=== PATIENT | female | born 1935 | race Caucasian/White ===

== ENCOUNTER 2016-08-10 18:43 | Inpatient (IN) ==
[2016-08-10 20:55] VITALS: BMI 32.9
[2016-08-10] MEDS ORDERED: NON-FORMULARY MEDICATION (Ferrous Sulfate [Ferrous Sulfate] 325 MG) PO SCH ×22 (22:30)
[2016-08-10] MEDS: FERROUS SULFATE PO SCH (23:27)
[2016-08-10] MEDS: CRESTOR PO SCH (23:27)
[2016-08-10] MEDS: ELIQUIS PO SCH (23:27)
[2016-08-10] MEDS: OMEGA-3 FISH OIL PO SCH (23:27)
[2016-08-10] MEDS: LANTUS SUBCUT SCH (23:28)
[2016-08-10] MEDS: HUMALOG SUBCUT PRN (23:29)
[2016-08-11] MEDS ORDERED: NORCO 5-325 ONE (01:49)
[2016-08-11] MEDS: NORCO 7.5-325 PO PRN ×4 (01:57→22:00)
[2016-08-11] MEDS: HUMALOG SUBCUT PRN ×2 (06:39→12:16)
[2016-08-11] MEDS: ELIQUIS PO SCH ×2 (08:53→22:02)
[2016-08-11] MEDS: DIOVAN PO SCH (08:53)
[2016-08-11] MEDS: CARDIZEM PO SCH ×2 (08:53→22:01)
[2016-08-11] MEDS: HYDROCHLOROTHIAZIDE PO SCH (08:53)
[2016-08-11] MEDS: FERROUS SULFATE PO SCH ×2 (08:54→22:03)
[2016-08-11] MEDS: VITAMIN D PO SCH (08:54)
[2016-08-11] MEDS ORDERED: NON-FORMULARY MEDICATION (Cholecalciferol (Vitamin D3) [Vitamin D3] 1,000 UNIT) PO SCH ×22 (09:00)
[2016-08-11] MEDS ORDERED: NON-FORMULARY MEDICATION (Cyanocobalamin (Vitamin B-12) [Vitamin B12] 5,000 MCG) PO SCH (09:00)
[2016-08-11] MEDS ORDERED: NORCO 7.5-325 MG/15 ML PO STA (09:00)
[2016-08-11] MEDS ORDERED: NORCO 7.5-325 PO STA (11:00)
[2016-08-11] MEDS: HUMALOG MIX 75-25 SUBCUT SCH (11:06)
--- NOTE | 2016-08-11 11:17 | RS.PTINEVL ---
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 Surgical History Comments:: ORIF 08/04/2016 left femur. Subjective Information/ Patient Comments:: Patient states she is doing well but just having difficulty moving around and getting the left leg to work again. Increased pain with movement. She sustained left femur fx when she fell on the steps at her home. She lives with her sister and was very activity prior to this injury. - Level of function Prior to this admission, the patient could do the following:: Independent Selfcare, Independent ADL's, Independent Ambulation, Partially Dependent Ambulation, Perform Rotor Balancer/Cooking, Drive, Participated in Social Activities Outside home, Volunteer/Work Current Level of Function: Dependent Current Equipment Used at Home: None Pain Assessement - Location Left Thigh Description: Throbbing, Aching, Acute Pain Aggravating Factors: ADL's, Changing Position, Exercise/Activity, Standing , Walking, Stair Climbing Pain Alleviating Factors: Medication, Inactivity, Sitting, Lying Supine Interventions - Objective Patient Orientation: Person, Place, Time, Situation Observation: Left lateral incisions with teresa in 3 locations from the mid gluteus medius area spaced throughout the thigh superior and lateral to the knee. Minimal redness of the proximal most superior incision site. Moderate LLE edema. Range of Motion - ROM Right Upper Extremity AROM: WFL's Left Upper Extremity AROM: WFL's Right Lower Extremity AROM: WFL's Left Lower Extremity AROM: Moderate limitation (Pain and weakness cause ROM limitations.) Muscle Strength - Muscle Strength Right Lower Extremity Strength: Normal Left Lower Extremity Strength: Severe Weakness (Hip 3-/5, knee 4-/5 and ankle 3+ /5) Sensation - Sensation Right Upper Extremity Sensation: N/A Left Upper Extremity Sensation: N/A Right Lower Extremity Sensation: N/A Left Lower Extremity Sensation: N/A Balance - Sitting Balance and Reactions Static Sitting Balance: Normal Dynamic Sitting Balance: Good Sitting Equilibrium Reactions: Within Normal Limits Left, Within Normal Limit Right - Standing Balance and Reactions Static Standing Balance: Good Dynamic Standing Balance: Fair Functional Mobility - Bed Mobility Rolling R/L: Not Tested Scooting: Not Tested Supine to Sit: Not Tested Sit to Supine: Not Tested Comments:: Patient reports needing mod-max assist of the LLE for all supine to/ from sit activity. Not tested today due to pain and fatigue with other aspect of evaluation. - Transfers Sit to Stand: Min Assist, 1 person assist Stand to Sit: CGA, 1 person assist, Verbal Cues Stand Pivot Transfers: Min Assist, 1 person assist, Verbal Cues - Safety Awareness Safety Awareness: Fair Ambulation - Ambulation Weight Bearing Status: TDWB/TTWB (30# WB on LLE) Assistive Device Used: Rolling Walker Orthotic/Prosthetic Device: Yes (Left biltup shoe) Distance: 30' Assistance needed with Ambulation: Min Assist, 1 person assist Gait Deviations: Step-to gait, Forward posture, Short stride Factors Affecting Ambulation: WB Status, Pain, Weakness, Decreased Safety, Limited Endurance Treatment time - Units charged Gait trainin (Twice) ADL: 30 - Time with patient Total treatment time: 45 Patient Education - Education Patient Education: Body/Joint mechanics, Activity Modification, Education of Plan of Care Teaching Recipient: Patient Teaching Methods: Discussion Assessment - Assessment Problem List:: Decreased level of function, Requires training/education, Decreased safety/Risk of falls, Weakness, Pain limits previous level of function Rehab Potential: Good Further Therapy Indicated?: Yes Short Term Goals GOAL #1: Patient performs sit to/from stand with SBA. Goal to be met by: 08/20/16 GOAL #2: Supine to/from sit with min LLE assisted needed. Goal to be met by: 08/20/16 GOAL #3: Ambulates 100' with RW and SBA with LLE WB compliance and SBA Goal to be met by: 08/20/16 Service Officer Goals GOAL #1: Independent with bed mobility. Goal to be met by: 08/27/16 GOAL #2: Ambulates 100' with RW, SBA and WB precautions. Goal to be met by: 08/27/16 GOAL #3: Performs steps with CGA to allow pt access in/out of her home. Goal to be met by: 08/27/16 Plan Plan of Care: Therapeutic EX, Neuromuscular Re-Educ, Therapeutic Activity Frequency of Treatment: 1-2 X day, as tolerated Duration of Treatment: 3 Weeks Anticipated Discharge Destination: Home
[2016-08-11] MEDS ORDERED: NORCO 7.5-325 MG/15 ML PO PRN (15:43)
[2016-08-11] MEDS ORDERED: NON-FORMULARY MEDICATION (Omega-3 Fatty Acids/Fish Oil [Fish Oil 1,000 Mg Capsule] 2 EACH) PO SCH ×22 (21:00)
[2016-08-11] MEDS: CRESTOR PO SCH (22:01)
[2016-08-11] MEDS: OMEGA-3 FISH OIL PO SCH (22:02)
[2016-08-11] MEDS: LANTUS SUBCUT SCH (22:05)
[2016-08-12] MEDS: NORCO 7.5-325 PO PRN ×5 (04:13→21:15)
[2016-08-12] MEDS: CARDIZEM PO SCH ×2 (08:31→21:14)
[2016-08-12] MEDS: DIOVAN PO SCH (08:32)
[2016-08-12] MEDS: ELIQUIS PO SCH ×2 (08:32→21:14)
[2016-08-12] MEDS: FERROUS SULFATE PO SCH ×2 (08:32→21:15)
[2016-08-12] MEDS: HUMALOG MIX 75-25 SUBCUT SCH (08:33)
[2016-08-12] MEDS: HYDROCHLOROTHIAZIDE PO SCH (08:36)
[2016-08-12] MEDS: VITAMIN D PO SCH (08:37)
--- NOTE | 2016-08-12 10:24 | RS.OTINEVL ---
Subjective - Patient information Date of Evaluation: 08/12/16 Date of Arrival on Unit: 08/10/16 Admitted From:: [facility] Usual Living Arrangement: sister Living Arrangement Comments: Patient and sister live together. They rent a house and have rails on both sides of the 2 steps to enter the home. 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 Surgical History Comments:: ORIF 08/04/2016 left femur. Subjective Information/ Patient Comments:: Patient's goal is to return to [email or web address] this spring. 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 Pt has difficulty with functional mobility and is anxious intermittently. Interventions - ROM Left Upper Extremity AROM: WFL's - Strength Right Upper Extremity Strength: Mild Weakness Left Upper Extremity Strength: Mild Weakness - Sensation Right Upper Extremity Sensation: Intact/Normal Left Upper Extremity Sensation: Intact/Normal Balance - Sitting Balance Static Sitting Balance: Good Dynamic Sitting Balance: Good - Standing Balance Static Standing Balance: Poor Dynamic Standing Balance: Poor ADL Skills - Self Feeding Self Feeding: Independent - Grooming Grooming: Max Assist - Bathing Bathing UE: Independent Bathing LE: Max Assist - Dressing Dressing UE: Independent Dressing LE: Max Assist - Toilet Management Toileting Management: Max Assist Functional Mobility - Bed Mobility Rolling R/L: Mod Assist Scooting: Mod Assist Supine to Sit: Mod Assist Sit to Supine: Mod Assist - Transfers Sit to Stand: CGA Stand to Sit: Min Assist Stand Pivot Transfers: Min Assist - Ambulation Weight Bearing Status: PWB Assistive Device Used: Rolling Walker Assistance needed with Ambulation: Min Assist Comments:: Pt requires cues to not put more than 30# on her left LE. - Safety Awareness Safety Awareness: Fair Additional Treatment Performed - Additional units charged ADL: 35 - Time with patient Total treatment time: 50 Activities Patient Interests:: Watching Television, Puzzles/Games, Visiting/Socializing Patient Education Patient Education: Home Exercise Program, Home Safety, Education of Plan of Care Teaching Recipient: Patient Teaching Methods: Discussion Assessment Problem List:: Decreased level of function, Requires training/education, Decreased safety/Risk of falls, Weakness, Pain limits previous level of function Rehab Potential: Good Further Therapy Indicated?: Yes Short Term Goals - Goals GOAL 1: Pt to be CGA with stand to sit. Goal to be met by: 08/26/16 GOAL 2: Pt to be minimal assist with LB dressing. Goal to be met by: 08/26/16 GOAL 3: Pt to tolerated standing activity of 15 minutes with rolling walker. Goal to be met by: 08/26/16 Wildlife Policy Professional Goals GOAL 1: Pt to be modified independent with STand to Sit. Goal to be met by: 09/09/16 GOAL 2: Pt to be modified Independent with ADLS. Goal to be met by: 09/09/16 GOAL 3: Pt to tolerate 20-25 minutes of standing activity. Goal to be met by: 09/09/16 Plan Plan of Care: Therapeutic EX, Therapeutic Activity, Self-Care/Home Management Frequency of Treatment: 1-2 X day, as tolerated Duration of Treatment: 4 Weeks Anticipated Discharge Destination: Home
[2016-08-12] MEDS: HUMALOG SUBCUT PRN ×2 (17:00→21:12)
[2016-08-12] MEDS: LANTUS SUBCUT SCH (21:13)
[2016-08-12] MEDS: CRESTOR PO SCH (21:14)
[2016-08-12] MEDS: OMEGA-3 FISH OIL PO SCH (21:15)
[2016-08-13] MEDS: NORCO 7.5-325 PO PRN ×4 (02:08→20:47)
[2016-08-13] MEDS: ELIQUIS PO SCH ×2 (09:19→21:18)
[2016-08-13] MEDS: DIOVAN PO SCH (09:19)
[2016-08-13] MEDS: HYDROCHLOROTHIAZIDE PO SCH (09:20)
[2016-08-13] MEDS: CARDIZEM PO SCH ×2 (09:20→21:18)
[2016-08-13] MEDS: HUMALOG MIX 75-25 SUBCUT SCH (09:20)
[2016-08-13] MEDS: VITAMIN D PO SCH (09:20)
[2016-08-13] MEDS: FERROUS SULFATE PO SCH ×2 (09:20→21:18)
[2016-08-13] MEDS: HUMALOG SUBCUT PRN (12:09)
[2016-08-13] MEDS ORDERED: COLACE PO SCH (21:00)
[2016-08-13] MEDS: OMEGA-3 FISH OIL PO SCH (21:17)
[2016-08-13] MEDS: CRESTOR PO SCH (21:19)
[2016-08-13] MEDS: LANTUS SUBCUT SCH (23:49)
[2016-08-14] MEDS: NORCO 7.5-325 PO PRN ×4 (01:44→20:11)
[2016-08-14] MEDS: HUMALOG SUBCUT PRN ×4 (06:44→20:22)
[2016-08-14] MEDS: ELIQUIS PO SCH ×2 (08:41→20:10)
[2016-08-14] MEDS: CARDIZEM PO SCH ×2 (08:42→20:09)
[2016-08-14] MEDS: HUMALOG MIX 75-25 SUBCUT SCH (08:42)
[2016-08-14] MEDS: FERROUS SULFATE PO SCH ×2 (08:42→20:10)
[2016-08-14] MEDS: VITAMIN D PO SCH (08:42)
[2016-08-14] MEDS: HYDROCHLOROTHIAZIDE PO SCH (08:42)
[2016-08-14] MEDS: DIOVAN PO SCH (08:42)
[2016-08-14 15:17] LABS: BASOPHILS # (AUTO) 0.1 K/uL (0-0.2); BASOPHILS % (AUTO) 0.7 % (0.0-3.0); EOSINOPHILS # (AUTO) 0.4 K/ul (0.0-0.7); EOSINOPHILS % (AUTO) 4.9 % (0.0-7.0); HEMATOCRIT 32.2 % (37.0-47.0); HEMOGLOBIN 10.5 g/dl (12.0-16.0); IMMATURE GRANULOCYTE % (AUTO) 0.6 % (0.0-5.0); LYMPHOCYTES # (AUTO) 1.2 K/uL (0.60-3.4); LYMPHOCYTES % (AUTO) 14.4 (10.0-50.0); MEAN CORPUSCULAR HEMOGLOBIN 29.5 pg (27.0-31.0); MEAN CORPUSCULAR HGB CONC 32.6 (31.8-35.4); MEAN CORPUSCULAR VOLUME 90.4 fl (81.0-99.0); MONOCYTES # (AUTO) 0.9 K/uL (0.4-2.0); MONOCYTES % (AUTO) 10.3 (0-10); NEUTROPHILS # (AUTO) 5.8 K/ul (2.0-6.9); NEUTROPHILS % (AUTO) 69.1; PLATELET COUNT 533 10^3/uL (140-440); RED BLOOD COUNT 3.56 10^6/ul (4.20-5.40); WHITE BLOOD COUNT 8.34 K/ul (4.6-10.2)
[2016-08-14 15:29] LABS: ALBUMIN 2.6 g/dL (3.4-5.0); ALBUMIN/GLOBULIN RATIO 0.72; ANION GAP 14.7; BILIRUBIN,TOTAL 0.57 mg/dL (0.00-1.20); BUN/CREATININE RATIO 23.25; CALCIUM 9.5 mg/dL (8.2-10.2); CREATININE 0.86 mg/dL (0.60-1.30); POTASSIUM 4.7 mmol/L (3.5-5.10); TOTAL PROTEIN 6.2 g/dL (5.8-8.1)
[2016-08-14] MEDS: COLACE PO SCH (20:10)
[2016-08-14] MEDS: OMEGA-3 FISH OIL PO SCH (20:10)
[2016-08-14] MEDS: CRESTOR PO SCH (20:10)
[2016-08-14] MEDS: LANTUS SUBCUT SCH (20:19)
[2016-08-15] MEDS: NORCO 7.5-325 PO PRN ×3 (02:27→18:35)
[2016-08-15] MEDS: HUMALOG SUBCUT PRN ×3 (05:40→20:55)
[2016-08-15] MEDS: ELIQUIS PO SCH ×2 (08:28→22:35)
[2016-08-15] MEDS: CARDIZEM PO SCH ×2 (08:28→22:35)
[2016-08-15] MEDS: HYDROCHLOROTHIAZIDE PO SCH (08:29)
[2016-08-15] MEDS: VITAMIN D PO SCH (08:29)
[2016-08-15] MEDS: FERROUS SULFATE PO SCH ×2 (08:29→22:34)
[2016-08-15] MEDS: HUMALOG MIX 75-25 SUBCUT SCH (08:29)
[2016-08-15] MEDS: DIOVAN PO SCH (08:29)
[2016-08-15] MEDS ORDERED: IMODIUM PO STA (17:41)
[2016-08-15] MEDS: OMEGA-3 FISH OIL PO SCH (22:35)
[2016-08-15] MEDS: CRESTOR PO SCH (22:35)
[2016-08-15] MEDS: COLACE PO SCH (22:35)
[2016-08-15] MEDS: LANTUS SUBCUT SCH (22:36)
[2016-08-16] MEDS: NORCO 7.5-325 PO PRN ×3 (01:25→09:18)
[2016-08-16] MEDS ORDERED: IMODIUM PO STA (04:57)
[2016-08-16] MEDS: DIOVAN PO SCH (09:11)
[2016-08-16] MEDS: FERROUS SULFATE PO SCH ×2 (09:11→21:54)
[2016-08-16] MEDS: ELIQUIS PO SCH ×2 (09:11→21:54)
[2016-08-16] MEDS: HYDROCHLOROTHIAZIDE PO SCH (09:11)
[2016-08-16] MEDS: VITAMIN D PO SCH (09:11)
[2016-08-16] MEDS: HUMALOG MIX 75-25 SUBCUT SCH (09:12)
[2016-08-16] MEDS: CARDIZEM PO SCH ×2 (09:18→21:54)
[2016-08-16] MEDS: HUMALOG SUBCUT PRN ×3 (12:18→21:55)
--- NOTE | 2016-08-16 14:13 | PN ---
DATE OF VISIT: 08/15/16 SUBJECTIVE: The patient is alert and without any complaints. No inspection of the wound was done today. It was clean I expected it the other day. She denies any problems. VITAL SIGNS: Temperature 97.4, pulse 90, blood pressure 114/53, respiratory rate 18 and oxygen saturation 99% at room air. No labs today, labs yesterday showed slightly increased blood sugar at 152. BUN 20, slightly elevated. MTDD
[2016-08-16] MEDS: OMEGA-3 FISH OIL PO SCH (21:54)
[2016-08-16] MEDS: LANTUS SUBCUT SCH (21:54)
[2016-08-16] MEDS: CRESTOR PO SCH (21:54)
[2016-08-17] MEDS: NORCO 7.5-325 PO PRN ×3 (05:08→23:46)
[2016-08-17] MEDS: CARDIZEM PO SCH ×2 (08:40→20:44)
[2016-08-17] MEDS: ELIQUIS PO SCH ×2 (08:40→20:45)
[2016-08-17] MEDS: HYDROCHLOROTHIAZIDE PO SCH (08:40)
[2016-08-17] MEDS: DIOVAN PO SCH (08:40)
[2016-08-17] MEDS: VITAMIN D PO SCH (08:40)
[2016-08-17] MEDS: FERROUS SULFATE PO SCH ×2 (08:40→20:44)
[2016-08-17] MEDS: HUMALOG MIX 75-25 SUBCUT SCH (08:41)
--- NOTE | 2016-08-17 11:24 | PN ---
DATE OF VISIT: 08/16/16 The patient is alert, oriented times four and cheerful. Not dyspneic, nor tachypneic. The patient had open reduction internal fixation of the fracture of the left femur and trochanter. The incision is healing very well and it is now 11 days postop. This patient is getting rehabilitation and she had been walked by the physical therapist. VITAL SIGNS: Temperature 97.4, pulse 90, blood pressure 120/55, respiratory rate 18, oxygen saturation 96 at room air. The accuchecks seemed to be in good control, except in the last two days. She is given a basal bolus type management for her diabetes. DENG
[2016-08-17] MEDS: HUMALOG SUBCUT PRN ×2 (11:58→20:46)
[2016-08-17] MEDS: CRESTOR PO SCH (20:44)
[2016-08-17] MEDS: OMEGA-3 FISH OIL PO SCH (20:45)
[2016-08-17] MEDS: LANTUS SUBCUT SCH (20:45)
[2016-08-18] MEDS: DIOVAN PO SCH (08:12)
[2016-08-18] MEDS: HYDROCHLOROTHIAZIDE PO SCH (08:12)
[2016-08-18] MEDS: ELIQUIS PO SCH ×2 (08:12→20:01)
[2016-08-18] MEDS: VITAMIN D PO SCH (08:13)
[2016-08-18] MEDS: CARDIZEM PO SCH ×2 (08:13→20:01)
[2016-08-18] MEDS: HUMALOG MIX 75-25 SUBCUT SCH (08:13)
[2016-08-18] MEDS: FERROUS SULFATE PO SCH ×2 (08:13→20:02)
[2016-08-18] MEDS: NORCO 7.5-325 PO PRN ×3 (08:15→23:21)
[2016-08-18] MEDS: NYSTOP POWDER TP SCH ×2 (16:03→20:01)
[2016-08-18] MEDS: HUMALOG SUBCUT PRN ×2 (17:33→20:40)
[2016-08-18] MEDS: OMEGA-3 FISH OIL PO SCH (20:02)
[2016-08-18] MEDS: CRESTOR PO SCH (20:02)
[2016-08-18] MEDS: LANTUS SUBCUT SCH (20:04)
[2016-08-19] MEDS: HUMALOG SUBCUT PRN ×2 (05:49→17:20)
[2016-08-19] MEDS: HYDROCHLOROTHIAZIDE PO SCH (08:33)
[2016-08-19] MEDS: FERROUS SULFATE PO SCH ×2 (08:33→20:30)
[2016-08-19] MEDS: DIOVAN PO SCH (08:33)
[2016-08-19] MEDS: NORCO 7.5-325 PO PRN ×3 (08:33→13:23)
[2016-08-19] MEDS: VITAMIN D PO SCH (08:33)
[2016-08-19] MEDS: ELIQUIS PO SCH ×2 (08:33→20:30)
[2016-08-19] MEDS: CARDIZEM PO SCH ×2 (08:33→20:31)
[2016-08-19] MEDS: NYSTOP POWDER TP SCH ×2 (08:34→20:32)
[2016-08-19] MEDS: HUMALOG MIX 75-25 SUBCUT SCH (08:40)
--- NOTE | 2016-08-19 14:56 | PN ---
DATE OF VISIT: 08/18/16 Physical Therapy had been walking the patient and she is still waiting. She claims to be doing well and has no specific complaints. LUNGS: Clear to auscultation in both sides. HEART: Normal sinus rhythm. LOWER EXTREMITIES: No tenderness in the legs. The incision is dry. DENG
[2016-08-19 15:50] LABS: BASOPHILS # (AUTO) 0.1 K/uL (0-0.2); BASOPHILS % (AUTO) 0.5 % (0.0-3.0); EOSINOPHILS # (AUTO) 0.4 K/ul (0.0-0.7); EOSINOPHILS % (AUTO) 4.3 % (0.0-7.0); HEMATOCRIT 31.7 % (37.0-47.0); HEMOGLOBIN 10.1 g/dl (12.0-16.0); IMMATURE GRANULOCYTE % (AUTO) 0.4 % (0.0-5.0); LYMPHOCYTES # (AUTO) 1.3 K/uL (0.60-3.4); LYMPHOCYTES % (AUTO) 13.7 (10.0-50.0); MEAN CORPUSCULAR HEMOGLOBIN 29.1 pg (27.0-31.0); MEAN CORPUSCULAR HGB CONC 31.9 (31.8-35.4); MEAN CORPUSCULAR VOLUME 91.4 fl (81.0-99.0); MONOCYTES # (AUTO) 0.9 K/uL (0.4-2.0); MONOCYTES % (AUTO) 9.4 (0-10); NEUTROPHILS # (AUTO) 6.5 K/ul (2.0-6.9); NEUTROPHILS % (AUTO) 71.7; PLATELET COUNT 538 10^3/uL (140-440); RED BLOOD COUNT 3.47 10^6/ul (4.20-5.40); WHITE BLOOD COUNT 9.11 K/ul (4.6-10.2)
[2016-08-19 16:11] LABS: ALBUMIN 2.6 g/dL (3.4-5.0); ALBUMIN/GLOBULIN RATIO 0.81; ANION GAP 9.6; BILIRUBIN,TOTAL 0.48 mg/dL (0.00-1.20); BUN/CREATININE RATIO 17.64; CALCIUM 9.2 mg/dL (8.2-10.2); CREATININE 0.85 mg/dL (0.60-1.30); POTASSIUM 4.6 mmol/L (3.5-5.10); TOTAL PROTEIN 5.8 g/dL (5.8-8.1)
[2016-08-19] MEDS: OMEGA-3 FISH OIL PO SCH (20:30)
[2016-08-19] MEDS: LANTUS SUBCUT SCH (20:31)
[2016-08-19] MEDS: CRESTOR PO SCH (20:31)
[2016-08-20] MEDS: NORCO 7.5-325 PO PRN (01:19)
[2016-08-20] MEDS: HUMALOG SUBCUT PRN ×2 (05:36→23:04)
[2016-08-20] MEDS: HYDROCHLOROTHIAZIDE PO SCH (08:28)
[2016-08-20] MEDS: DIOVAN PO SCH (08:28)
[2016-08-20] MEDS: ELIQUIS PO SCH ×2 (08:28→20:00)
[2016-08-20] MEDS: FERROUS SULFATE PO SCH ×2 (08:29→20:01)
[2016-08-20] MEDS: CARDIZEM PO SCH ×2 (08:29→20:00)
[2016-08-20] MEDS: VITAMIN D PO SCH (08:29)
[2016-08-20] MEDS: NYSTOP POWDER TP SCH (08:30)
--- NOTE | 2016-08-20 14:24 | PN ---
DATE OF SERVICE: 08/19/16 SUBJECTIVE: The patient is a 80 year old female who had a fracture of the left hip and femur and treated with open reduction and internal fixation. She had been receiving physical therapy and rehab and had been doing well. She mentioned about her sugar being low after exercise. Her Accu-checks were high but maybe a reduction on the coverage may help the problem. Her problem is low blood sugar. She had not had a fasting sugar lately and we will try to get that tomorrow. The insulin Lispro 16 units SUBCUT daily is discontinued. I do believe that this probably would correct the problem. LUNGS: Clear to auscultation HEART: Audible and irregular The patient is atrial fibrillation. The incision now has some redness, reaction from the teresa. The teresa were removed. This patient is now two weeks post surgery. VITAL SIGNS: Temperature 97.9, pulse 95, blood pressure 119/61, respiratory 18 and oxygen saturation 97% at room air. [facility]
[2016-08-20] MEDS: CRESTOR PO SCH (20:00)
[2016-08-20] MEDS: OMEGA-3 FISH OIL PO SCH (20:00)
[2016-08-20] MEDS: LANTUS SUBCUT SCH (23:01)
[2016-08-21] MEDS: NORCO 7.5-325 PO PRN ×2 (00:56→18:59)
[2016-08-21] MEDS: NYSTOP POWDER TP SCH ×3 (00:57→21:54)
[2016-08-21] MEDS: HUMALOG SUBCUT PRN ×4 (06:49→21:51)
[2016-08-21] MEDS: ELIQUIS PO SCH ×2 (09:22→21:33)
[2016-08-21] MEDS: FERROUS SULFATE PO SCH ×2 (09:22→21:56)
[2016-08-21] MEDS: CARDIZEM PO SCH ×2 (09:22→21:33)
[2016-08-21] MEDS: HYDROCHLOROTHIAZIDE PO SCH (09:23)
[2016-08-21] MEDS: VITAMIN D PO SCH (09:23)
[2016-08-21] MEDS: DIOVAN PO SCH (09:23)
[2016-08-21] MEDS: CRESTOR PO SCH (21:33)
[2016-08-21] MEDS: LANTUS SUBCUT SCH (21:34)
[2016-08-21] MEDS: OMEGA-3 FISH OIL PO SCH (21:34)
[2016-08-22] MEDS: NORCO 7.5-325 PO PRN (00:57)
[2016-08-22] MEDS: HUMALOG SUBCUT PRN ×3 (06:23→17:14)
[2016-08-22 08:06] LABS: ALBUMIN 2.5 g/dL (3.4-5.0); ANION GAP 12.3; BUN/CREATININE RATIO 21.17; CALCIUM 9.1 mg/dL (8.2-10.2); CREATININE 0.85 mg/dL (0.60-1.30); PHOSPHORUS 3.8 mg/dL (2.8-4.1); POTASSIUM 4.3 mmol/L (3.5-5.10)
[2016-08-22] MEDS: FERROUS SULFATE PO SCH ×2 (08:55→20:49)
[2016-08-22] MEDS: HYDROCHLOROTHIAZIDE PO SCH (08:56)
[2016-08-22] MEDS: DIOVAN PO SCH (08:56)
[2016-08-22] MEDS: VITAMIN D PO SCH (08:57)
[2016-08-22] MEDS: CARDIZEM PO SCH ×2 (08:57→20:49)
[2016-08-22] MEDS: ELIQUIS PO SCH ×2 (08:57→20:49)
[2016-08-22] MEDS: NYSTOP POWDER TP SCH ×2 (09:00→20:50)
[2016-08-22] MEDS: CRESTOR PO SCH (20:49)
[2016-08-22] MEDS: OMEGA-3 FISH OIL PO SCH (20:49)
[2016-08-22] MEDS: LANTUS SUBCUT SCH (21:06)
[2016-08-23] MEDS: HUMALOG SUBCUT PRN ×3 (05:45→17:50)
[2016-08-23] MEDS: CARDIZEM PO SCH ×2 (09:31→21:32)
[2016-08-23] MEDS: ELIQUIS PO SCH ×2 (09:32→21:32)
[2016-08-23] MEDS: DIOVAN PO SCH (09:32)
[2016-08-23] MEDS: HYDROCHLOROTHIAZIDE PO SCH (09:33)
[2016-08-23] MEDS: FERROUS SULFATE PO SCH ×2 (09:33→21:32)
[2016-08-23] MEDS: VITAMIN D PO SCH (09:34)
[2016-08-23] MEDS: NORCO 7.5-325 PO PRN ×3 (09:36→23:31)
[2016-08-23] MEDS: NYSTOP POWDER TP SCH ×2 (10:33→23:23)
[2016-08-23] MEDS: LANTUS SUBCUT SCH (21:31)
[2016-08-23] MEDS: OMEGA-3 FISH OIL PO SCH (21:32)
[2016-08-23] MEDS: CRESTOR PO SCH (21:32)
[2016-08-24] MEDS: HUMALOG SUBCUT PRN ×4 (05:37→20:11)
[2016-08-24] MEDS: DIOVAN PO SCH (09:05)
[2016-08-24] MEDS: ELIQUIS PO SCH ×2 (09:05→20:28)
[2016-08-24] MEDS: CARDIZEM PO SCH ×2 (09:05→20:28)
[2016-08-24] MEDS: FERROUS SULFATE PO SCH ×2 (09:05→20:29)
[2016-08-24] MEDS: HYDROCHLOROTHIAZIDE PO SCH (09:06)
[2016-08-24] MEDS: NYSTOP POWDER TP SCH ×2 (09:06→23:03)
[2016-08-24] MEDS: VITAMIN D PO SCH (09:06)
[2016-08-24] MEDS: NORCO 7.5-325 PO PRN ×2 (09:19→23:10)
[2016-08-24] MEDS ORDERED: BACTROBAN TP ONE (16:22)
[2016-08-24] MEDS ORDERED: BACTROBAN TP STA (17:50)
[2016-08-24] MEDS: CRESTOR PO SCH (20:25)
[2016-08-24] MEDS: OMEGA-3 FISH OIL PO SCH (20:27)
[2016-08-24] MEDS: LANTUS SUBCUT SCH (20:29)
[2016-08-25] MEDS: HUMALOG SUBCUT PRN ×4 (05:41→20:52)
--- NOTE | 2016-08-25 07:52 | DI ---
EXAM: Four views of the right toes. History: Right second toe infection. Findings: Osteopenia. Hallux valgus deformity. There is a subacute appearing mildly displaced fra cture of the proximal phalanx of the first digit with callus formation and some irregularity of the fracture fragment margins. Moderate polyarticular joint space narrowing. No definite soft tissue g as is seen. Impression: Subacute appearing fracture of the proximal phalanx of the first digit. Underlying ost eomyelitis is not excluded.
[2016-08-25] MEDS: DIOVAN PO SCH (08:02)
[2016-08-25] MEDS: CARDIZEM PO SCH ×2 (08:02→20:56)
[2016-08-25] MEDS: ELIQUIS PO SCH ×2 (08:03→20:55)
[2016-08-25] MEDS: FERROUS SULFATE PO SCH ×2 (08:03→20:55)
[2016-08-25] MEDS: NYSTOP POWDER TP SCH ×2 (08:04→20:54)
[2016-08-25] MEDS: VITAMIN D PO SCH (08:04)
[2016-08-25] MEDS: HYDROCHLOROTHIAZIDE PO SCH (08:04)
[2016-08-25] MEDS: NORCO 7.5-325 PO PRN ×3 (08:05→21:25)
[2016-08-25] MEDS: LANTUS SUBCUT SCH (20:51)
[2016-08-25] MEDS: CRESTOR PO SCH (20:55)
[2016-08-25] MEDS: OMEGA-3 FISH OIL PO SCH (20:56)
[2016-08-26] MEDS: HUMALOG SUBCUT PRN ×4 (05:56→21:52)
[2016-08-26] MEDS: FERROUS SULFATE PO SCH ×2 (08:01→21:54)
[2016-08-26] MEDS: CARDIZEM PO SCH ×2 (08:02→21:55)
[2016-08-26] MEDS: DIOVAN PO SCH (08:02)
[2016-08-26] MEDS: VITAMIN D PO SCH (08:02)
[2016-08-26] MEDS: ELIQUIS PO SCH ×2 (08:02→21:54)
[2016-08-26] MEDS: HYDROCHLOROTHIAZIDE PO SCH (08:02)
[2016-08-26] MEDS: NYSTOP POWDER TP SCH ×2 (08:03→21:55)
--- NOTE | 2016-08-26 11:18 | CONS ---
DATE OF CONSULTATION: 08/25/16 REASON FOR CONSULTATION: Atrial fibrillation, further management with Yen blood thinners. HISTORY OF PRESENT ILLNESS: 80-year-old white female seen in July. She was then noted to have atrial fibrillation. She has been on Eliquis ever since then with practically no complication. The patient underwent left hip trochanteric nailing and intramedullary hip screw by Dr. Tam and according to the patient, Dr. Tam wants her to get off Eliquis. As far as I can see, the patient is still in atrial fib. Echo done this morning by me showed LA cavity enlargement of 4.8 cm with normal LV contractility and borderline LVH. REVIEW OF SYSTEMS: CONSTITUTIONAL: No night sweats. No fatigue, malaise, lethargy. No fever or chills. HEENT: Eyes: No visual changes. No eye pain. No eye discharge. ENT: No runny nose. No epistaxis. No sinus pain. No sore throat. No odynophagia. No ear pain. No congestion. RESPIRATORY: No cough, no congestion. No hemoptysis. CARDIOVASCULAR: No angina symptoms. No CHF symptoms. No atypical chest pain for CAD. No palpitations. No shortness of breath. GASTROINTESTINAL: No abdominal pain. No nausea or vomiting. No diarrhea or constipation. No hematemesis. No hematochezia. GENITOURINARY: No urgency. No frequency. No dysuria. No hematuria. No obstructive symptoms. No discharge. No pain. No significant abnormal bleeding. MUSCULOSKELETAL: No musculoskeletal pain. No joint swelling. NEUROLOGICAL: No headache. No neck pain. No syncope. No seizures. No dizziness. PSYCHIATRIC: Not anxious. No depression. No suicidal thoughts. No homicidal thoughts. SKIN: No rash. No lesions. ENDOCRINE: No unexplained weight loss. No weight gain. HEMATOLOGIC/LYMPHATIC: No anemia. No purpura. No petechiae. No prolonged or excessive bleeding. No palpable lymph nodes. MEDICATIONS: 1. Cholecalciferol 2. Insulin 3. [place] 4. Rosuvastatin 5. Ferrous Sulfate 6. Cyanocobalamin 7. Eliquis 8. Diltiazem 9. Valsartan-HCTZ ALLERGIES: AZITHROMYCIN, BACTRIM PAST MEDICAL/SURGICAL HISTORY: 1. Left hip fracture repair a couple of weeks ago 2. Diabetes mellitus 3. Dyslipidemia 4. Hypertension 5. Atrial fibrillation PHYSICAL EXAMINATION: GENERAL: The patient is oriented to time, place and person. VITAL SIGNS: Temperature 97.5, pulse 95/min, respiratory rate 20, BP 123/60, pulse ox 98%. HEENT: Head normocephalic, atraumatic. Face is symmetrical. Eyes: Extraocular muscles are intact. Pupils are equal, round and reactive to light and accommodation. Ears: No lesions. Nose appeared normal. Throat: No exudate or erythema. NECK: Supple. No JVP, no carotid bruit. No lymphadenopathy or thyromegaly. LUNGS: Decreased breath sounds but clear to auscultation. Percussion note normal. Chest symmetrical. HEART: S1, S2, no S3. No murmurs. No cyanosis or clubbing. No ascites. Pulses: Dorsalis pedis and posterior tibial pulses +1 to +2 both sides. ABDOMEN: Soft. Nontender. Bowel sounds active. No CVA tenderness. No mass felt. EXTREMITIES: Trace edema on the left side mildly tender left hip. It has healed up pretty well. Calf muscles nontender. NEUROLOGIC: No focal deficit. Cranial nerves II through XII are grossly intact. No headache, no double vision or headache. SKIN: Not dry. Intact. Turgor - normal. LYMPHATIC: No palpable lymph nodes/no lymphedema. MUSCULOSKELETAL: Normal joints with no swelling. Muscle tone is normal. LABS: Hemoglobin 10, hematocrit 31, WBC 9,100, normal differential. Creatinine 0.8, BUN 18, potassium 4.3, glucose 252. GFR 65 cc/min. EKG - atrial fibrillation, LVH. ASSESSMENT: 1. Atrial fibrillation, chronic. 2. Diabetes mellitus. 3. Hypertension. 4. Dyslipidemia. 5. Left hip fracture/repair. RECOMMENDATION: 1. Advised to continue ELiquis 5 mg twice a day. 2. Continue the rest of the medication. The patient's medical conditions are stable. I discussed the case with attending. Thanks for referral. DENG
--- NOTE | 2016-08-26 13:33 | PN ---
DATE OF VISIT: 08/21/16 The patient is alert and oriented times four. Not dyspneic, nor tachypneic. She had been done walking already. Her incision is healing well with no signs of any infection. VITAL SIGNS: Temperature 98, pulse 99, blood pressure 150/65, respiratory rate 18, oxygen saturation 99 on room air. LUNGS: Clear to auscultation in both sides. HEART: Normal sinus rhythm. ASSESSMENT: Satisfactory postoperative course of left hip fracture treated with ORIF. DENG
--- NOTE | 2016-08-26 13:37 | PN ---
DATE OF VISIT: 08/23/16 The patient is alert and oriented times four. Not dyspneic, nor tachypneic. She had been walked by Physical Therapy. She claimed to be doing well, except she did show me the right foot and indeed she had a necrotic tissue on the second toe. I told her that we would do a debridement tomorrow. The area on the left lateral thigh, site of the surgery, is healing well and no signs of any infection. The teresa have been removed already. LUNGS: Remained clear to auscultation in both sides. HEART: Audible and regular with good tones. MTDD
--- NOTE | 2016-08-26 13:42 | PN ---
DATE OF VISIT: 08/24/16 The patient is alert and doing well. She had a small amount of drainage in the incision of the left lateral thigh. A culture and sensitivity will be obtained. There is no wound dehiscence. The area on the right foot, second toe , is debrided with prior culture. The foot is soaked first with half water and half hydrogen peroxide prior to the debridement. Debridement was carried using an Iris scissor plus a scalpel. The foot is then dressed with Bactroban. VITAL SIGNS: Temperature 97.8, pulse 88, blood pressure 113/63, respiratory rate 18, oxygen saturation 99 at room air. MTDD
--- NOTE | 2016-08-26 13:48 | PN ---
DATE OF VISIT: 08/24/16 The patient does have a callous formation and after removing all of the callous , the patient has an ulceration with rounded opening on the distal end of the phalanx. The second toe is red and probably the patient may have an osteomyelitis. Culture and sensitivity was obtained from the ulceration. The nail will be transected tomorrow, but it will be after she has been to the orthopedic surgeon. Her appointment is 8 a.m. X-ray of the second toe is ordered to see if there is any signs of osteomyelitis and it may need a bone scan three phase. I emphasized to her that she should show that to the orthopedic surgeon. DENG
[2016-08-26] MEDS: NORCO 7.5-325 PO PRN (15:01)
[2016-08-26] MEDS: LANTUS SUBCUT SCH (21:53)
[2016-08-26] MEDS: CRESTOR PO SCH (21:54)
[2016-08-26] MEDS: OMEGA-3 FISH OIL PO SCH (21:54)
[2016-08-27] MEDS: NORCO 7.5-325 PO PRN (03:18)
[2016-08-27] MEDS: HUMALOG SUBCUT PRN ×3 (05:55→21:52)
[2016-08-27] MEDS: NYSTOP POWDER TP SCH ×2 (09:33→22:18)
[2016-08-27] MEDS: ELIQUIS PO SCH ×2 (09:33→21:50)
[2016-08-27] MEDS: VITAMIN D PO SCH (09:33)
[2016-08-27] MEDS: FERROUS SULFATE PO SCH ×2 (09:33→21:50)
[2016-08-27] MEDS: DIOVAN PO SCH (09:34)
[2016-08-27] MEDS: HYDROCHLOROTHIAZIDE PO SCH (09:34)
[2016-08-27] MEDS: CARDIZEM PO SCH ×2 (09:34→21:50)
--- NOTE | 2016-08-27 10:14 | CONS ---
DATE OF SERVICE: 08/26/16 CONSULT FOLLOWUP SUBJECTIVE: 80-year-old white female hospitalized with left hip trochanteric nailing and intramedullary hip screw, now in the swing bed since 08/10/16. The question was whether to put the patient on Eliquis or not. The patient is in atrial fibrillation. All the documentation showed the patient has been in atrial fibrillation since July 2016. She has been monitored for the last 36 hours. She has been in continuous atrial fibrillation today. EKG shows atrial fibrillation. The rhythm strips also showed atrial fibrillation with controlled ventricular response. REVIEW OF SYSTEMS: CONSTITUTIONAL: No night sweats. No fatigue, malaise, lethargy. No fever or chills. HEENT: Eyes: No visual changes. No eye pain. No eye discharge. ENT: No runny nose. No epistaxis. No sinus pain. No sore throat. No odynophagia. No ear pain. No congestion. RESPIRATORY: No cough, no congestion. No hemoptysis. CARDIOVASCULAR: No angina symptoms. No CHF symptoms. No atypical chest pain for CAD. No palpitations. No shortness of breath. GASTROINTESTINAL: No abdominal pain. No nausea or vomiting. No diarrhea or constipation. No hematemesis. No hematochezia. GENITOURINARY: No urgency. No frequency. No dysuria. No hematuria. No obstructive symptoms. No discharge. No pain. No significant abnormal bleeding. MUSCULOSKELETAL: No musculoskeletal pain. No joint swelling. NEUROLOGICAL: No headache. No neck pain. No syncope. No seizures. No dizziness. PSYCHIATRIC: Not anxious. No depression. No suicidal thoughts. No homicidal thoughts. SKIN: No rash. No lesions. ENDOCRINE: No unexplained weight loss. No weight gain. HEMATOLOGIC/LYMPHATIC: No anemia. No purpura. No petechiae. No prolonged or excessive bleeding. No palpable lymph nodes. PHYSICAL EXAMINATION: GENERAL: The patient is oriented to time, place and person. VITAL SIGNS: Temperature 98, pulse 79, respiratory rate 16, BP 115/62, pulse ox 100%. HEENT: Head normocephalic, atraumatic. Eyes: Extraocular muscles are intact. Pupils are equal, round and reactive to light and accommodation. Ears: No lesions. Nose appeared normal. Throat: No exudate or erythema. NECK: Supple. No JVD, no carotid bruit. No lymphadenopathy or thyromegaly. LUNGS: Decreased breath sounds but clear to auscultation. Percussion note normal. Chest symmetrical. HEART: S1, S2, no S3. No murmurs. No cyanosis or clubbing. No ascites. Pulses: Dorsalis pedis and posterior tibial pulses +1 to +2 both sides. ABDOMEN: Soft. Nontender. Bowel sounds active. No CVA tenderness. No mass felt. EXTREMITIES: No edema. Mildly tender left hip, healing well. NEUROLOGIC: No focal deficit. Cranial nerves II through XII are grossly intact. No headache, no double vision or headache. SKIN: Not dry. Intact. Turgor - normal. LYMPHATIC: No palpable lymph nodes/no lymphedema. MUSCULOSKELETAL: Normal joints with no swelling. Muscle tone is normal. LABS: Hemoglobin 10.1, hematocrit 31.7, WBC 9,100, normal differential. Creatinine 0.8 , BUN 18, potassium 4.3, glucose 252. ASSESSMENT: 1. ATRIAL FIBRILLATION WITH CONTROLLED VENTRICULAR RESPONSE. 2. DIABETES MELLITUS. 3. HYPERTENSION. 4. DYSLIPIDEMIA. 5. LEFT FEMORAL FRACTURE/REPAIR PLAN: 1. Continue Eliquis. The side effects of Eliquis discussed with the patient including intracranial hemorrhage, GI bleed. The patient so far had no evidence of any side effects from Eliquis. She has been on it for several months. At the present time, the patient is status post left femoral fracture with no complications. CONDITION: Stable. MTDD
--- NOTE | 2016-08-27 11:28 | ECHO2D ---
Date of Exam: 08/25/16 Ordering Physician: CASSIDY WEINER Reason for Echo: A-FIB, DM, HTN, Auscultation: S1, S2 M-Mode Normal Adult Results LV Dimensions Normal Adult Results AoV Opening excursions >1.6 >1.6 LVEDD-base- 3.5-5.8 4.5 Ao root dimensions 2.0-3.7 3.8 LVESD-base- 3.1-4.6 L. Atrium dimensions 1.9-3.8 4.6 Post. Wall thickness 0.8-1.1 1.1 IV septum (thickness) 0.7-1.2 1.2 Post. Wall excursion 0.72-1.3 NORMAL Septal motion 0.5 Systolic motion R. Ventricular cavity 1.5-2.0 NORMAL LVEF 60% 53% Paradoxical septal wall motion NORMAL 2-D : STIFF HYPOKINETIC SEPTUM--NO EFFUSION, NO THROMBUS, ENLARGED LEFT ATRIAL CAVITY, NORMAL LEFT VENTRICLE SIZE. M-MODE: MV: CALCIFIC ANNULUS AV: NORMAL TV: NORMAL PV: CHAMBER SIZE: ENLARGED LEFT ATRIAL CAVITY WALL MOTION: HYPOKINETIC SEPTUM PERICARDIUM: NORMAL INTERPRETATION: 1. LEFT VENTRICULAR HYPERTROPHY WITH ENLARGED LEFT ATRIAL CAVITY 2. HYPOKINETIC SEPTUM (STIFF) 3. LEFT VENTRICULAR EJECTION FRACTION 53% 4. NORMAL VALVES MTDD
--- NOTE | 2016-08-27 11:36 | PN ---
DATE OF VISIT: 08/26/16 The right second toe nail was transected using a bone rongeur, as well as a bone cutter. All the rounded ulceration at the distal end of the distal phalangeal soft tissue is still draining some cloudy material, minimal. The toe is bigger than the rest of the toes. X-ray showed some abnormality and possible osteomyelitis. A bone scan limited to the second toe is ordered for tomorrow. The patient is alert and doing well. Not dyspneic, nor tachypneic. No wound dehiscence in the left lateral thigh incision. MTDD
--- NOTE | 2016-08-27 14:49 | NM ---
EXAM: Bone scan, three-phase . HISTORY: Ulcer on the right second toe. Abnormal x-ray. COMPARISON: None of this type. Radiograph 08/24/2016. PROCEDURE: The patient was injected with 26.9 mCi of 99m technetium HDP intravenously. A flow study was performed followed by immediate blood pool phase images. After an appropriate interval, delayed bone phase images were obtained. FINDINGS:Anterior perfusion phase images demonstrate increased activity in the distal forefeet in th e region of the toes bilaterally somewhat more prominent on the right. Immediate blood pool phase i mages demonstrate modest more uniform activity throughout the feet with some increase seen in the an kles and also at the base of the right great toe in the region of the metatarsal phalangeal joint. T here is also modest increased activity in the distal midfoot at the level of the articulation of the metatarsals and the tarsals. Delayed bone phase images demonstrate more intense focal activity in t he right great toe at the level of the metatarsal phalangeal joint. There is modest activity in the tip of the second toe. There is increased activity in the calcanei and/or ankles bilaterally and i n the right midfoot at about the level of the articulation of the third metatarsal with the tarsal b one. On the left there is more modest increased activity at the base of the great toe and additiona lly at the level of the interphalangeal joints of the second and third toes and at the metatarsal ta rsal articulation of the fourth or fifth toe. These latter findings are all likely associated with degenerative joint disease. Additional images of the hips, femurs and knees demonstrate asymmetrica lly greater activity on the left with fractures seen involving the proximal left femur including the intertrochanteric plane and the distal left femur. IMPRESSION: 1.The three-phase examination demonstrates positive findings in the region of the first metatarsopha langeal joints, more intense on the right due to the radiographically demonstrated subacute appearin g fracture of the proximal phalanx of the first digit. The perfusion phase images do not localize a ctivity specifically to these areas. 2.The examination demonstrates focal increased activity at the tip of the right second toe. The loc ation of the ulcer on the second toe is not known. If there is an appropriate anatomic relationship , this could represent an infectious process. 3.The immediate blood pool phase and delayed bone phase images demonstrate increased activity in sev eral of the joints of the feet bilaterally listed in the report. This activity is probably due to d egenerative changes in the joints. 4.The delayed images also show increased uptake of tracer in joints of the ankles bilaterally, also associated with degenerative change and/or repetitive stress.
[2016-08-27] MEDS: ROCEPHIN 2 GM in SODIUM CHLORIDE 100 ML IV SCH (15:15)
[2016-08-27] MEDS: CRESTOR PO SCH (21:50)
[2016-08-27] MEDS: OMEGA-3 FISH OIL PO SCH (21:50)
[2016-08-27] MEDS: LANTUS SUBCUT SCH (21:56)
[2016-08-28] MEDS: FERROUS SULFATE PO SCH ×2 (08:29→20:04)
[2016-08-28] MEDS: ELIQUIS PO SCH ×2 (08:29→20:04)
[2016-08-28] MEDS: DIOVAN PO SCH (08:29)
[2016-08-28] MEDS: VITAMIN D PO SCH (08:29)
[2016-08-28] MEDS: CARDIZEM PO SCH ×2 (08:29→20:04)
[2016-08-28] MEDS: HYDROCHLOROTHIAZIDE PO SCH (08:30)
[2016-08-28] MEDS: NYSTOP POWDER TP SCH ×2 (08:30→20:11)
[2016-08-28] MEDS: ROCEPHIN 2 GM in SODIUM CHLORIDE 100 ML IV SCH (08:31)
[2016-08-28] MEDS: BACTROBAN TP SCH ×2 (10:22→20:07)
[2016-08-28] MEDS: HUMALOG SUBCUT PRN ×2 (11:26→16:46)
[2016-08-28] MEDS: CRESTOR PO SCH (20:05)
[2016-08-28] MEDS: OMEGA-3 FISH OIL PO SCH (20:05)
[2016-08-28] MEDS: LANTUS SUBCUT SCH (20:28)
[2016-08-29] MEDS: HUMALOG SUBCUT PRN ×4 (05:32→20:52)
[2016-08-29] MEDS: ELIQUIS PO SCH ×2 (08:31→20:10)
[2016-08-29] MEDS: CARDIZEM PO SCH ×2 (08:31→20:12)
[2016-08-29] MEDS: VITAMIN D PO SCH (08:31)
[2016-08-29] MEDS: DIOVAN PO SCH (08:31)
[2016-08-29] MEDS: BACTROBAN TP SCH ×2 (08:31→20:14)
[2016-08-29] MEDS: HYDROCHLOROTHIAZIDE PO SCH (08:32)
[2016-08-29] MEDS: ROCEPHIN 2 GM in SODIUM CHLORIDE 100 ML IV SCH (08:32)
[2016-08-29] MEDS: FERROUS SULFATE PO SCH ×2 (08:32→20:12)
[2016-08-29] MEDS: NYSTOP POWDER TP SCH ×2 (08:33→20:15)
[2016-08-29 13:01] LABS: BASOPHILS # (AUTO) 0.1 K/uL (0-0.2); BASOPHILS % (AUTO) 0.8 % (0.0-3.0); EOSINOPHILS # (AUTO) 0.3 K/ul (0.0-0.7); EOSINOPHILS % (AUTO) 3.7 % (0.0-7.0); HEMATOCRIT 32.9 % (37.0-47.0); HEMOGLOBIN 10.7 g/dl (12.0-16.0); IMMATURE GRANULOCYTE % (AUTO) 0.4 % (0.0-5.0); LYMPHOCYTES % (AUTO) 13.6 (10.0-50.0); MEAN CORPUSCULAR HEMOGLOBIN 29.2 pg (27.0-31.0); MEAN CORPUSCULAR HGB CONC 32.5 (31.8-35.4); MEAN CORPUSCULAR VOLUME 89.9 fl (81.0-99.0); MONOCYTES # (AUTO) 0.9 K/uL (0.4-2.0); MONOCYTES % (AUTO) 11.9 (0-10); NEUTROPHILS # (AUTO) 5.2 K/ul (2.0-6.9); NEUTROPHILS % (AUTO) 69.6; PLATELET COUNT 499 10^3/uL (140-440); RED BLOOD COUNT 3.66 10^6/ul (4.20-5.40); WHITE BLOOD COUNT 7.49 K/ul (4.6-10.2)
[2016-08-29 13:22] LABS: ALBUMIN 2.4 g/dL (3.4-5.0); ALBUMIN/GLOBULIN RATIO 0.67; ANION GAP 13.5; BILIRUBIN,TOTAL 0.27 mg/dL (0.00-1.20); BUN/CREATININE RATIO 19.27; CALCIUM 9.3 mg/dL (8.2-10.2); CREATININE 0.83 mg/dL (0.60-1.30); POTASSIUM 4.5 mmol/L (3.5-5.10)
[2016-08-29] MEDS: OMEGA-3 FISH OIL PO SCH (20:10)
[2016-08-29] MEDS: CRESTOR PO SCH (20:11)
[2016-08-29] MEDS: LANTUS SUBCUT SCH (20:29)
[2016-08-30 05:28] VITALS: BP 116/54; TEMP 97.9
[2016-08-30] MEDS: HUMALOG SUBCUT PRN ×2 (06:18→11:12)
--- NOTE | 2016-08-30 07:10 | PN ---
DATE OF VISIT: 08/27/16 SUBJECTIVE: The patient is alert, oriented times four, not dyspneic or tachypneic. He wanted to know when he can go home, Tuesday or Tuesday? I told her Tuesday morning. She will be going to her granddaughter's house instead of her sister. The culture done on the 2nd toe, right foot, showed Morganella Morganii. It is sensitive to Ceftriaxone and the patient is given Ceftriaxone now and when discharged, she will be continued on Cipro. OBJECTIVE: The right second toe swelling is much less, drainage is less and the ulceration is getting smaller. Bone scan three-phase today was done and there is some activity in the second toe, distal end. There is activity on the first toe, which is due to fracture. Other activities are due to degenerative disease of the bone. Left lateral thigh incision has some redness and induration. There is no purulent drainage. The initial drainage cultured showed no growth. There is still some drainage. There is about 1 cm that is slightly gaping. The area is dressed aseptically. Lungs are clear to auscultation. Heart is audible and slightly irregular. EKG still shows what appeared to be atrial fibrillation. I had consulted Dr. Phan, who initiated the anticoagulant medication for the atrial fibrillation and he felt that we could not stop the Eliquis 5 mg twice a day since the arrhythmia is still present. Dr. Memo Tam had implied that the Eliquis may have something to do with the delayed healing. PLAN: Will obtain chemistries tomorrow to see where the blood sugar is. The blood sugar was higher. Probably should increase the Lantus in the evening. MTDD
[2016-08-30] MEDS: BACTROBAN TP SCH (07:59)
[2016-08-30] MEDS: FERROUS SULFATE PO SCH (08:00)
[2016-08-30] MEDS: VITAMIN D PO SCH (08:00)
[2016-08-30] MEDS: ELIQUIS PO SCH (08:00)
[2016-08-30] MEDS: DIOVAN PO SCH (08:00)
[2016-08-30] MEDS: HYDROCHLOROTHIAZIDE PO SCH (08:00)
[2016-08-30] MEDS: CARDIZEM PO SCH (08:00)
[2016-08-30] MEDS: NYSTOP POWDER TP SCH (08:01)
[2016-08-30] MEDS: ROCEPHIN 2 GM in SODIUM CHLORIDE 100 ML IV SCH (08:42)
--- NOTE | 2016-08-30 08:49 | PN ---
DATE OF VISIT: 08/29/16 SUBJECTIVE: The patient is alert, responsive and oriented. The second big toe still has a small ulcer at the end. The swelling of the second big toe has regressed remarkably. It is being treated with Bactroban. The incision in the left lateral thigh is still draining serous drainage. I had instructed a culture and sensitivity on the drainage today. LUNGS: Clear to auscultation HEART: Normal sinus rhythm LABS: Sodium and potassium were slightly lower, 132 and 94 respectively. Her blood sugar was 221, EGFR 66, CBC showed moderate anemia, Plt count rising now 499, 000. Her appetite is good. VITAL SIGNS: Temperature 97.4, pulse 96, blood pressure 133/58, respiratory 20 and oxygen saturation 100 at room air. MTDD
--- NOTE | 2016-08-31 10:55 | DS ---
DATE OF ADMISSION: 08/10/16 DATE OF DISCHARGE: 08/30/16 PATIENT IDENTIFICATION: The patient is a 80 year old female who had fall 08/05/16 was operated with open reduction internal fixation of the left hip on 08/06/16. The patient had satisfactory course while at the hospital in [place] and was then discharged to transitional care at [place] on 08/10/16. HOSPITAL COURSE: The patient on admission was alert, oriented times 4 with movement of all extremities. She did have some pain in the hip area but not significant. Temperature 98.2, pulse 61, blood pressure 146/77 left and 134/69 right, respiratory 18 and oxygen saturation 97% room air. Medication were continued at discharge from [facility] and physical therapy as ordered by the operating orthopedic surgeon. On 08/24/16 the patient did complain of some callus formation on the second toe which we thought was OK. The callus was removed. An ulceration at the distal end of the distal phalanx of the second toe is noted, rounded and exuding some serous material. Culture was done. Nail was left in place since it was very hard to transect and requiring some bone instruments and will done the next day. [place] were removed and the patient had some serous drainage at the upper end of the incision and a culture specimen was obtain and showed no growth to any bacteria. The culture of the second toe did showed Morganella Morganii and sensitive to Ceftriaxone M.I.C less than 1 and so the patient is given 2gm of Ceftriaxone daily. The patient on discharge will be placed on Cipro. This patient is allergic to Bactrim. The only other oral medication available was Levofloxacin. Cipro was elected since Levofloxacin has been known to have some problem with retinal detachment although rare. This patient is going to her Granddaughter who is a nurse and will stay there with them. She had seen the orthopedic surgeon and felt that maybe the poor healing of the incision is secondary to the Eliquis and would like it discontinued. This patient still has the cardiac arrhythmia and had requested Dr. Phan the Marketing Performance Analyst to who initiated the patient on this medication for his opinion as to temporarily stopping the medication. He felt that the patient should not be discontinued. This patient had been walking and still has 30 pound limit to weight barring on the left lower extremity. She was told that it was a good amount of bone healing. She is again scheduled to see the operating surgeon a week from the last visit. A culture again of the wound on the left hip showed no growth. This is second culture done 08/29/16. The patient at the time of discharge is alert with movement of all extremities, oriented, not dyspneic or tachypneic. Temperature 97.9, pulse 77, blood pressure 116/54, respiratory rate 16, oxygen saturation 98 at room air. LUNGS: Clear to auscultation in both sides HEART: Normal sinus rhythm. LOWER EXTREMITIES: The ulceration on the second toe is treated with Bactroban plus band-aid. A repeat x-ray of the foot will done sometime. The bone scan does indicate some increased activity of the distal end of the second toe. This patient is to resume all her previous medications. The new medication is Cipro 500mg twice a day #20. This patient may nee more than that since there is a good probability of osteomyelitis of the second toe. She should go back to her previous insulin schedule consisting of 16 units of Lantus in the evening and 16 units of Humalog mix 75-25 in the morning plus Humalog per sliding scale; blood sugar minus 100 divided by 20 equals the number of units to be given at breakfast, lunch and supper. She is to see me in one week and before if there is any problem. FINAL DIAGNOSES: 1. Left femoral fracture, treated with open reduction with internal fixation left healing 2. Rounded ulcer distal and second toe right with probably osteomyelitis 3. Diabetes Mellitus, insulin dependant 4. Anemia, moderate 5. Hypertension, controlled 6. Atrial fibrillation with normal ventricular response PROGNOSIS: Guarded. MTDD
--- NOTE | 2016-09-03 10:32 | HP ---
CHIEF COMPLAINT: Transitional Care post open reduction and internal fixation fracture of left femur and hip. HISTORY OF PRESENT ILLNESS: The patient fell 08/05/16 coming down the stairs. She was then admitted to a [facility] and was operated on 08/06/2016. She had an open reduction with internal fixation. She had done well and she was then transferred to this facility before rehabilitation under Transitional Care status. PAST PERSONAL HISTORY: The patient has diabetes mellitus type II with Insulin additional coverage, atrial fibrillation with normal ventricular response on medication, hypertension and dyslipidemia. FAMILY HISTORY: No significant family history contributive to the present problem. MEDICATIONS: Prior to this admission Crestor 20 mg daily Vitamin D3 1,000 IU daily Latta 3 fatty acid 1,000 mg capsule, two at bedtime Humalog per accucheck Humalog Mix 75/25 16 units subcutaneously in the morning Lantus 16 Units in the evening. Ferrous Sulfate 325 mg twice a day Vitamin B12 sublingual 2,000 mcg daily Diltiazem 60 mg twice a day Eliquis 5 mg twice a day Valsartan/Hydrochlorothiazide 160/25 mg one daily ALLERGIES: Azithromycin, Sulfa and Trimethoprim. REVIEW OF SYSTEMS: CONSTITUTIONAL: The patient is alert with no fever and no chills. No significant fatigue. 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 VISUAL: Denies any blurred vision, double vision, or transient loss of vision. AUDITORY: Hearing is markedly decreased. No tinnitus. No pain and no drainage. RESPIRATORY: Denies any shortness of breath. No history of hemoptysis. CARDIOVASCULAR: Denies any chest pain or chest tightness GASTROINTESTINAL: Appetite is good. No dysphagia. No abdominal pain. GENITOURINARY: Denies any pain, frequency or urgency of urination at this time. INTEGUMENT: No pruritus and no rash. MUSCULOSKELETAL: The patient has an incision in the left lateral thigh from the fracture that was corrected. ENDOCRINE: The patient has diabetes mellitus on medication. HEMATOLOGIC: No history of prolonged bleeding. PSYCHIATRIC: Affect is normal. PHYSICAL EXAMINATION: GENERAL: 80 year old female admitted to [facility] under Transitional Care post open reduction internal fixation of left hip fracture and femur. VITAL SIGNS: Temperature 98.2, pulse 61, blood pressure 146/77 left, right 134/ 69, respiratory rate 18, oxygen saturation 97 at room air. HEAD: Unremarkable. FACE: Symmetrical and equal with no facial weakness and no tenderness in the frontal or maxillary sinus areas to palpation under pressure. EYES: Pupils equal/reactive to light about 3 mm in size. Conjunctivae not pale. Sclerae not icteric. MOUTH: Unremarkable. THROAT: No inflammation, tumors or exudate. NECK: No masses. No bruit. No tenderness. No rigidity. CHEST: Essentially symmetrical and equal with good expansion and no remarkable tenderness. LUNGS: Breath sounds are heard in both sides. No rales or wheezing. HEART: Audible and irregular, but not tachycardic. No murmurs. ABDOMEN: Somewhat protuberant, soft with no remarkable tenderness and no guarding. Bowel sounds are active. No masses palpable. LOWER EXTREMITIES: Incision with teresa on the left lateral thigh. Some ankle edema. No tenderness in the calf muscles. UPPER EXTREMITIES: Symmetrical and equal. ASSESSMENT: 1. LEFT HIP FRACTURE, POST ORIF 2. DIABETES MELLITUS TYPE II 3. ATRIAL FIBRILLATION 4. HYPERTENSION 5. ELEVATED BMI 32.9 6. ANEMIA MTDD
--- NOTE | 2016-09-06 07:19 | CONS ---
DATE OF SERVICE: 08/27/16 CONSULT FOLLOWUP SUBJECTIVE: 80-year-old white female hospitalized with left hip pain and nailing. Her condition has been stable. REVIEW OF SYSTEMS: CONSTITUTIONAL: No night sweats. No fatigue, malaise, lethargy. No fever or chills. HEENT: Eyes: No visual changes. No eye pain. No eye discharge. ENT: No runny nose. No epistaxis. No sinus pain. No sore throat. No odynophagia. No ear pain. No congestion. RESPIRATORY: No cough, no congestion. No hemoptysis. CARDIOVASCULAR: No angina symptoms. No CHF symptoms. No atypical chest pain for CAD. No palpitations. No shortness of breath. GASTROINTESTINAL: No abdominal pain. No nausea or vomiting. No diarrhea or constipation. No hematemesis. No hematochezia. GENITOURINARY: No urgency. No frequency. No dysuria. No hematuria. No obstructive symptoms. No discharge. No pain. No significant abnormal bleeding. MUSCULOSKELETAL: No musculoskeletal pain. No joint swelling. No arthritis. NEUROLOGICAL: No headache. No neck pain. No syncope. No seizures. No dizziness. PSYCHIATRIC: Not anxious. No depression. No suicidal thoughts. No homicidal thoughts. SKIN: No rash. No lesions. No wounds. ENDOCRINE: No unexplained weight loss. No weight gain. HEMATOLOGIC/LYMPHATIC: No anemia. No purpura. No petechiae. No prolonged or excessive bleeding. No palpable lymph nodes. PHYSICAL EXAMINATION: GENERAL: The patient is oriented to time, place and person. VITAL SIGNS: Temperature 96.6, pulse 87, respiratory rate 20, BP 113/63, pulse ox 97%. HEENT: Head normocephalic, atraumatic. Eyes: Extraocular muscles are intact. Pupils are equal, round and reactive to light and accommodation. Ears: No lesions. Nose appeared normal. Throat: No exudate or erythema. NECK: Supple. No JVD, no carotid bruit. No lymphadenopathy or thyromegaly. LUNGS: Clear to auscultation. Percussion note normal. Chest symmetrical. HEART: S1, S2, irregularly irregular. No cyanosis or clubbing. No ascites. Pulses: Dorsalis pedis and posterior tibial pulses +1 to +2 both sides. ABDOMEN: Soft. Nontender. Bowel sounds active. No CVA tenderness. No mass felt. EXTREMITIES: No edema. Full range of motion of all extremities, equal. NEUROLOGIC: No focal deficit. Cranial nerves II through XII are grossly intact. No headache, no double vision or headache. SKIN: Not dry. Intact. Turgor - normal. LYMPHATIC: No palpable lymph nodes/no lymphedema. MUSCULOSKELETAL: Normal joints with no swelling. Muscle tone is normal. LABS: Hemoglobin 10.1, hematocrit 31, WBC 9,100, normal differential. Creatinine 0.8, BUN 18, potassium 4.3. ASSESSMENT: 1. LEFT HIP PINNING 2. ATRIAL FIBRILLATION 3. DIABETES MELLITUS 4. HYPERTENSION 5. DYSLIPIDEMIA PLAN: There was a question about the patient's being on Eliquis and her cardiac rhythm. The patient's cardiac rhythm has been consistently noted to be in atrial fibrillation. She has been on Eliquis since June or July with no complications. The side effects of Eliquis discussed. Advised to continue Eliquis 5 mg twice a day. CONDITION: Stable MTDD
--- NOTE | 2016-09-07 11:45 | PN ---
DATE OF VISIT: 08/25/16 The patient did go early this morning to the operating orthopedic surgeon, Dr. Memo Tam. There is some drainage in the upper end of the left lateral hip incision. He mentioned that people on anticoagulant medication do have problems with healing and he recommends that the Eliquis be discontinued for two weeks. I told the patient, as well as the relative, a granddaughter who is a nurse, that I would consult the summer intern who recommended anticoagulation. She was begun on this medication in July of 2015. I did look back and Dr. Phan was consulted at that time and recommended per criteria that this patient be placed on anticoagulation. The wound today has no drainage since she left Dr. Tam. I would consult Dr. Phan as to his opinion whether we can stop the medication. The other problem is the second two of the right foot. This patient has an ulceration and maybe an osteomyelitis. The x-ray does show that the first digit has some questionable fracture and maybe questionable infection. I am not certain whether the radiologist is counting the second toe as a first digit rather than the big toe. I need to clarify that x-ray. I am waiting for the culture. The culture that was done yesterday showed two young to read. Culture in the incision has no growth. MTDD
== END 2016-08-30 16:30 | disposition home or self-care (01) | DRG 464 ==
LOC: MEDSURG B 18:43
PROVIDERS: ADMIT General Practice; ATTEND General Practice
PROC: 0HBMXZZ Excision of Right Foot Skin, External Approach (ICD-10-PCS; principal; 2016-08-24)
PROC: 0Q8Q0ZZ Division of Right Toe Phalanx, Open Approach (ICD-10-PCS; 2016-08-26)
DX: S72.92XD Unspecified fracture of left femur, subsequent encounter for closed fracture with routine healing (principal); M86.171 Other acute osteomyelitis, right ankle and foot; D62 Acute posthemorrhagic anemia; I51.7 Cardiomegaly; L98.499 Non-pressure chronic ulcer of skin of other sites with unspecified severity; B96.89 Other specified bacterial agents as the cause of diseases classified elsewhere; E11.9 Type 2 diabetes mellitus without complications; I48.2 Chronic atrial fibrillation; I10 Essential (primary) hypertension; E78.5 Hyperlipidemia, unspecified; Z48.89 Encounter for other specified surgical aftercare; Z98.890 Other specified postprocedural states; W19.XXXD Unspecified fall, subsequent encounter; Z16.39 Resistance to other specified antimicrobial drug; Z79.01 Long term (current) use of anticoagulants; Z79.4 Long term (current) use of insulin
CPT/HCPCS: 36415; 80053; 80069; 82962; 83880; 85025; 87070; 87186; 93005; 93010; 97802; 99306; 99308; 99309; 99316

== ENCOUNTER 2017-01-19 09:21 | Outpatient (CLI) ==
[2017-01-19 13:19] LABS: BASOPHILS # (AUTO) 0.1 K/uL (0-0.2); BASOPHILS % (AUTO) 1.2 % (0.0-3.0); EOSINOPHILS # (AUTO) 0.5 K/ul (0.0-0.7); EOSINOPHILS % (AUTO) 10.2 % (0.0-7.0); HEMATOCRIT 40.3 % (37.0-47.0); HEMOGLOBIN 13.1 g/dl (12.0-16.0); IMMATURE GRANULOCYTE % (AUTO) 0.2 % (0.0-5.0); LYMPHOCYTES # (AUTO) 1.2 K/uL (0.60-3.4); LYMPHOCYTES % (AUTO) 24.3 (10.0-50.0); MEAN CORPUSCULAR HEMOGLOBIN 28.7 pg (27.0-31.0); MEAN CORPUSCULAR HGB CONC 32.5 (31.8-35.4); MEAN CORPUSCULAR VOLUME 88.4 fl (81.0-99.0); MONOCYTES # (AUTO) 0.6 K/uL (0.4-2.0); MONOCYTES % (AUTO) 12.3 (0-10); NEUTROPHILS # (AUTO) 2.7 K/ul (2.0-6.9); NEUTROPHILS % (AUTO) 51.8; PLATELET COUNT 328 10^3/uL (140-440); RED BLOOD COUNT 4.56 10^6/ul (4.20-5.40); WHITE BLOOD COUNT 5.11 K/ul (4.6-10.2)
[2017-01-19 13:34] LABS: ALBUMIN 3.6 g/dL (3.4-5.0); ANION GAP 12.1; BILIRUBIN,TOTAL 0.59 mg/dL (0.00-1.20); BUN/CREATININE RATIO 17.07; CALCIUM 9.9 mg/dL (8.2-10.2); CHOL/HDL RATIO 1.9 (4.5-5.5); CREATININE 0.82 mg/dL (0.60-1.30); POTASSIUM 4.1 mmol/L (3.5-5.10); TOTAL PROTEIN 7.2 g/dL (5.8-8.1)
== END 2017-01-19 09:22 | disposition home or self-care (01) ==
LOC: LAB 09:21
PROVIDERS: ATTEND General Practice
DX: I10 Essential (primary) hypertension (principal); E78.5 Hyperlipidemia, unspecified; E11.9 Type 2 diabetes mellitus without complications; I73.9 Peripheral vascular disease, unspecified
CPT/HCPCS: 36415; 80053; 80061; 83036; 85025

== ENCOUNTER 2017-01-25 14:11 | Outpatient (CLI) ==
--- NOTE | 2017-01-25 15:26 | US ---
EXAM: Ultrasound bilateral carotid duplex HISTORY: Slurred speech COMPARISON: Carotid Doppler 04/23/2016 TECHNIQUE: Sonographic and color Doppler evaluation of the carotids were performed. FINDINGS: The right carotid is patent in appearance with scattered moderate atherosclerotic plaque visualized. The right ICA peak systolic velocity measures 60 cm/sec which is normal. The ICA / CCA peak systolic velocity ratio is 1.1 and ICA end-diastolic velocity is 10 cm/sec. The left carotid is patent in appearance with moderate scattered atherosclerotic plaque visualized. The left ICA peak systolic velocity measures 60 cm/sec which is normal. The left ICA / CCA peak systolic velocity ratio is 1.1 and ICA end-diastolic velocity is 10 cm/sec. Vertebral arteries demonstrate antegrade flow bilaterally. IMPRESSION: Moderate atherosclerotic disease of the carotid arteries with no elevated velocities to suggest hemo dynamically significant stenosis.
== END 2017-01-25 14:12 | disposition home or self-care (01) ==
LOC: RAD 14:11
PROVIDERS: ATTEND General Practice
DX: R47.81 Slurred speech (principal); R53.1 Weakness

== ENCOUNTER 2017-04-22 12:50 | Outpatient (CLI) ==
[2017-04-22 13:04] LABS: BASOPHILS # (AUTO) 0.1 K/uL (0-0.2); BASOPHILS % (AUTO) 1.4 % (0.0-3.0); EOSINOPHILS # (AUTO) 0.5 K/ul (0.0-0.7); EOSINOPHILS % (AUTO) 10.1 % (0.0-7.0); HEMATOCRIT 36.5 % (37.0-47.0); HEMOGLOBIN 12.2 g/dl (12.0-16.0); IMMATURE GRANULOCYTE % (AUTO) 0.2 % (0.0-5.0); LYMPHOCYTES # (AUTO) 1.2 K/uL (0.60-3.4); LYMPHOCYTES % (AUTO) 23.8 (10.0-50.0); MEAN CORPUSCULAR HEMOGLOBIN 30.6 pg (27.0-31.0); MEAN CORPUSCULAR HGB CONC 33.4 (31.8-35.4); MEAN CORPUSCULAR VOLUME 91.5 fl (81.0-99.0); MONOCYTES # (AUTO) 0.5 K/uL (0.4-2.0); MONOCYTES % (AUTO) 10.7 (0-10); NEUTROPHILS # (AUTO) 2.7 K/ul (2.0-6.9); NEUTROPHILS % (AUTO) 53.8; PLATELET COUNT 341 10^3/uL (140-440); RED BLOOD COUNT 3.99 10^6/ul (4.20-5.40); WHITE BLOOD COUNT 5.04 K/ul (4.6-10.2)
[2017-04-22 13:06] LABS: BILIRUBIN,URINE Negative (NEGATIVE); KETONES,URINE Negative (NEGATIVE); LEUKOCYTE ESTERASE ,URINE Negative (NEGATIVE); NITRITE,URINE Negative (NEGATIVE); PROTEIN,URINE Negative (NEGATIVE); URINE, BLOOD Negative (NEGATIVE)
[2017-04-22 13:23] LABS: ADD URINE MICROSCOPIC YES
[2017-04-22 13:24] LABS: BACTERIA,URINE TRACE (NOT PRESENT)
[2017-04-22 13:27] LABS: ALBUMIN 3.4 g/dL (3.4-5.0); ALBUMIN/GLOBULIN RATIO 1.06; ANION GAP 14.2; BILIRUBIN,TOTAL 0.54 mg/dL (0.00-1.20); BUN/CREATININE RATIO 23.37; CALCIUM 9.9 mg/dL (8.2-10.2); CHOL/HDL RATIO 2.2 (4.5-5.5); CREATININE 0.77 mg/dL (0.60-1.30); POTASSIUM 4.2 mmol/L (3.5-5.10); TOTAL PROTEIN 6.6 g/dL (5.8-8.1)
== END 2017-04-22 12:51 | disposition home or self-care (01) ==
LOC: LAB 12:50
PROVIDERS: ATTEND General Practice
DX: E10.9 Type 1 diabetes mellitus without complications (principal); I10 Essential (primary) hypertension; E61.1 Iron deficiency; I48.91 Unspecified atrial fibrillation; R09.89 Other specified symptoms and signs involving the circulatory and respiratory systems; Z79.899 Other long term (current) drug therapy
CPT/HCPCS: 36415; 80053; 80061; 81001; 83036; 85025

== ENCOUNTER 2017-07-15 12:59 | Outpatient (CLI) ==
[2017-07-15 13:11] LABS: BASOPHILS # (AUTO) 0.1 K/uL (0-0.2); BASOPHILS % (AUTO) 1.5 % (0.0-3.0); EOSINOPHILS # (AUTO) 0.4 K/ul (0.0-0.7); EOSINOPHILS % (AUTO) 8.1 % (0.0-7.0); HEMATOCRIT 37.8 % (37.0-47.0); HEMOGLOBIN 12.7 g/dl (12.0-16.0); IMMATURE GRANULOCYTE % (AUTO) 0.4 % (0.0-5.0); LYMPHOCYTES # (AUTO) 1.1 K/uL (0.60-3.4); LYMPHOCYTES % (AUTO) 21.3 (10.0-50.0); MEAN CORPUSCULAR HEMOGLOBIN 30.5 pg (27.0-31.0); MEAN CORPUSCULAR HGB CONC 33.6 (31.8-35.4); MEAN CORPUSCULAR VOLUME 90.6 fl (81.0-99.0); MONOCYTES # (AUTO) 0.6 K/uL (0.4-2.0); MONOCYTES % (AUTO) 10.9 (0-10); NEUTROPHILS # (AUTO) 3.1 K/ul (2.0-6.9); NEUTROPHILS % (AUTO) 57.8; PLATELET COUNT 339 10^3/uL (140-440); RED BLOOD COUNT 4.17 10^6/ul (4.20-5.40); WHITE BLOOD COUNT 5.31 K/ul (4.6-10.2)
[2017-07-15 13:21] LABS: ALBUMIN 3.3 g/dL (3.4-5.0); ALBUMIN/GLOBULIN RATIO 0.94; ANION GAP 14.2; BILIRUBIN,TOTAL 0.49 mg/dL (0.00-1.20); BUN/CREATININE RATIO 27.71; CALCIUM 9.8 mg/dL (8.2-10.2); CHOL/HDL RATIO 2.1 (4.5-5.5); CREATININE 0.83 mg/dL (0.60-1.30); POTASSIUM 4.2 mmol/L (3.5-5.10); TOTAL PROTEIN 6.8 g/dL (5.8-8.1)
[2017-07-15 13:25] LABS: BILIRUBIN,URINE Negative (NEGATIVE); KETONES,URINE Negative (NEGATIVE); LEUKOCYTE ESTERASE ,URINE Trace (NEGATIVE); NITRITE,URINE Negative (NEGATIVE); PROTEIN,URINE Negative (NEGATIVE); URINE, BLOOD Negative (NEGATIVE)
[2017-07-15 13:30] LABS: ADD URINE MICROSCOPIC YES
[2017-07-15 13:52] LABS: BACTERIA,URINE TRACE (NOT PRESENT)
== END 2017-07-15 13:00 | disposition home or self-care (01) ==
LOC: LAB 12:59
PROVIDERS: ATTEND General Practice
DX: E10.9 Type 1 diabetes mellitus without complications (principal); I10 Essential (primary) hypertension; I48.91 Unspecified atrial fibrillation; Z79.899 Other long term (current) drug therapy
CPT/HCPCS: 36415; 80053; 80061; 81001; 83036; 85025

== ENCOUNTER 2017-10-20 11:15 | Outpatient (CLI) | END 2017-10-20 11:16 | disposition home or self-care (01) | LOC: FCC-LAB 11:15 | PROVIDERS: ATTEND General Practice | DX: E10.9 Type 1 diabetes mellitus without complications (principal); I10 Essential (primary) hypertension; I48.91 Unspecified atrial fibrillation; R09.89 Other specified symptoms and signs involving the circulatory and respiratory systems; Z79.899 Other long term (current) drug therapy | CPT/HCPCS: 36415; 80053; 80061; 81001; 83036; 85025; 87086 ==

== ENCOUNTER 2018-01-18 09:42 | Outpatient (CLI) | END 2018-01-18 09:43 | disposition home or self-care (01) | LOC: FCC-LAB 09:42 | PROVIDERS: ATTEND General Practice | DX: E10.9 Type 1 diabetes mellitus without complications (principal); I10 Essential (primary) hypertension; I48.91 Unspecified atrial fibrillation; R09.89 Other specified symptoms and signs involving the circulatory and respiratory systems; Z79.899 Other long term (current) drug therapy | CPT/HCPCS: 36415; 80053; 80061; 81001; 83036; 85025; 87086 ==

== ENCOUNTER 2018-04-19 11:43 | Outpatient (CLI) | END 2018-04-19 11:44 | disposition home or self-care (01) | LOC: FCC-LAB 11:43 | PROVIDERS: ATTEND General Practice | DX: E10.9 Type 1 diabetes mellitus without complications (principal); I10 Essential (primary) hypertension; I48.91 Unspecified atrial fibrillation; Z79.899 Other long term (current) drug therapy | CPT/HCPCS: 36415; 80053; 80061; 81001; 83036; 85025; 87086 ==

== ENCOUNTER 2018-05-03 07:34 | Outpatient (CLI) | END 2018-05-03 07:35 | disposition home or self-care (01) | LOC: WOUND 07:34 | PROVIDERS: ATTEND Nurse Practitioner Family | DX: S81.811A Laceration without foreign body, right lower leg, initial encounter (principal); E11.9 Type 2 diabetes mellitus without complications; E78.5 Hyperlipidemia, unspecified; I48.92 Unspecified atrial flutter | CPT/HCPCS: 11042; 99202; 99212 ==

== ENCOUNTER 2018-05-10 09:05 | Outpatient (CLI) | END 2018-05-10 09:06 | disposition home or self-care (01) | LOC: WOUND 09:05 | PROVIDERS: ATTEND Nurse Practitioner Family | DX: S81.811A Laceration without foreign body, right lower leg, initial encounter (principal); E11.9 Type 2 diabetes mellitus without complications; E78.5 Hyperlipidemia, unspecified; I48.92 Unspecified atrial flutter ==

== ENCOUNTER 2018-05-17 07:32 | Outpatient (CLI) | END 2018-05-17 07:33 | disposition home or self-care (01) | LOC: WOUND 07:32 | PROVIDERS: ATTEND Nurse Practitioner Family | DX: S81.811A Laceration without foreign body, right lower leg, initial encounter (principal); E11.9 Type 2 diabetes mellitus without complications; E78.5 Hyperlipidemia, unspecified; I48.92 Unspecified atrial flutter | CPT/HCPCS: 11042 ==

== ENCOUNTER 2018-05-24 08:01 | Outpatient (CLI) | END 2018-05-24 08:02 | disposition home or self-care (01) | LOC: WOUND 08:01 | PROVIDERS: ATTEND Nurse Practitioner Family | DX: S81.811A Laceration without foreign body, right lower leg, initial encounter (principal); E11.9 Type 2 diabetes mellitus without complications; E78.5 Hyperlipidemia, unspecified; I48.92 Unspecified atrial flutter | CPT/HCPCS: 99213 ==

== ENCOUNTER 2018-06-06 12:55 | Outpatient (CLI) | END 2018-06-06 12:56 | disposition home or self-care (01) | LOC: RHC-LAB 12:55 | PROVIDERS: ATTEND General Practice | DX: E10.9 Type 1 diabetes mellitus without complications (principal); I73.9 Peripheral vascular disease, unspecified; I10 Essential (primary) hypertension; Z79.899 Other long term (current) drug therapy | CPT/HCPCS: 36415; 80053; 80061; 81001; 83036; 85025 ==

== ENCOUNTER 2018-08-15 07:57 | Outpatient (CLI) | payer OTHER | END 2018-08-15 07:58 | disposition home or self-care (01) | LOC: LAB 07:57 → RHC-LAB 07:58 | PROVIDERS: ATTEND General Practice | DX: E13.9 Other specified diabetes mellitus without complications (principal); I10 Essential (primary) hypertension; I73.9 Peripheral vascular disease, unspecified; M17.10 Unilateral primary osteoarthritis, unspecified knee; I48.91 Unspecified atrial fibrillation; Z79.899 Other long term (current) drug therapy | CPT/HCPCS: 36415; 80053; 80061; 81001; 83036; 85025 ==

== ENCOUNTER 2018-10-09 08:11 | Outpatient (CLI) | END 2018-10-09 08:12 | disposition home or self-care (01) | LOC: RHC-LAB 08:11 | PROVIDERS: ATTEND General Practice | DX: E13.9 Other specified diabetes mellitus without complications (principal); Z79.899 Other long term (current) drug therapy | CPT/HCPCS: 36415; 83036 ==

== ENCOUNTER 2018-12-04 10:00 | Outpatient (RCR) ==
--- NOTE | 2018-11-15 16:14 | RS.OPPTEV2 ---
Date of Note: 11/14/18 Visit #: 1 Number of visits approved by Insurance: NA Date of Evaluation: 11/14/18 Payer Source: MEDICARE Treatment Diagnosis: Left hip weakness, gait abnormality History of Condition/Mechanism of Injury:: Patient fractured the left femur and underwent ORIF of the femur 08/04/16. She has walked with a rolling walker since that time. History includes leg length difference, addressed for years with the left shoe built up. Prior Level of Function.....Patient was independent with: ADL's, Self Care, Caregiving, Ambulation/Mobility, Community Integration/Access Functional Limitations: Ambulation, Community Access/Integration Current Subjective/complaints:: Ms. Khoury reports having difficulty lifting her leg to get in a vehicle. Also reports having pain in the left hip, along the lateral thigh. States her pain is worse in the morning when she first gets out of bed. She uses a rolling walker for all ambulation. States she will walk very short distances holding to the wall or furniture in her apartment. She denies any falls. States she has had her left shoe built up to address her leg length difference for over 10 years. She would like to walk with a cane. Prior to her hip surgery, she was very active and did not use an assistive device. She lives alone in her apartment. She has no steps at the entrance or inside her apartment. Treatment Side (optional): Left Medical History Medical History: Hypertension, Diabetes, Arthritis, Vascular Disease, Other Medical History Comments:: Has leg length descrepency with patient have a buildup on her left shoe for years. Surgical History Comments:: ORIF 08/04/2016 left femur. Smoking Status: Never smoker Hx Home Medications: eliquis,Cardizem, Crestor, Magnesium-oxide, Flonase, vit D , Vit B12, Fish oil, Coconut Oil tabs Patient's Goals: Her goal is to gain more strength in the left hip and ambulate with a cane. Pain Assessment - Pain Description Pain Location: left hip and along lateral thigh Pain Description: Aching Current Pain Intensity: 0/10 Worst Pain Intensity: 4-5/10 Functional Outcome Measure Tinetti: 15 (=46.5% impairment) - G Codes & Severity Modifier G Codes & Modifier: NA Source of G Code score: NA Observation - Observation Inspection: Bottom of left shoe is built up. In supine, left LE continues to appear shorter, even with the built up shoe in place. Gait - Gait Pattern Gait Comments: Patient ambulates in department with a rolling walker. She demonstrates decreased stance on the left LE and decreased left hip and knee flexion. Demonstrates Trendelenburg sign during left stance phase. Trunk lean to the left with left LE stance phase is much more pronounced without assistive device. Maintains slight knee flexion during stance phase on the right LE and appears to vault slightly on the right LE when advancing the left LE. General Range of Motion: Bilateral LE AROM is WFL's, with the exception of left hip flexion. Patient able to lift left leg against gravity ~ 75% of normal flexion in sitting. Muscle Strength: Left hip flexion 4-/5, Abduction 3/5, Extension 3+/5, Adduction 4/5, ER 3/5, IR 4-/5. Left Quads 4 to 4+/5, HS 4/5. Ankle 4+/5. Right hip 4+/5 throughout. Quads and HS 4+/5, ankle 4+/5. Trunk strength 4/5. Palpation Comments:: Patient reports no significant tenderness along the left lateral thigh, or over the Greater Trochanter. Sensation - Sensation Right Lower Extremity: Intact/Normal Left Lower Extremity: Intact/Normal Balance - Sitting Balance Static Sitting Balance: Good Dynamic Sitting Balance: Good - Standing Balance Static Standing Balance: Good (-) Dynamic Standing Balance: Fair Additional Comments: Additional Comments: With patient laying supine on treatment table, and with shoes on, left LE measures 3/4 to 1 inch shorter than the right. Interventions - Exercise/Activities/Manual Therapy Exercises/Activities: None given today Manual Therapy: NA - Charges Timed Code Treatment Minutes: 0 mins Total Treatment Time: 52 mins Procedures billed for this date of service:: Eval Medium EVALUATION COMPLEXITY LEVEL EVALUATION COMPLEXITY LEVEL: HISTORY: Medium (Hx Left femur ORIF, Diabetes, leg length discrepancy, Bilateral DJD knees), EXAM OF BODY SYSTEMS: Medium (Gait, ROM, MS, balance, sensation), CLINICAL PRESENTATION: Medium, CLINICAL DECISION MAKING: Medium Assessment Assessment: Ms. Khoury presents to therapy with reports of left hip weakness and pain. She reports difficulty with mobility in the morning due to left hip pain. Also reports difficulty with walking and with getting in/out of vehicle due to weakness in the left hip. She demonstrates significant weakness of the left hip, causing her to require the use of a walker for safety. Tinetti Assessment puts her at a High risk for falls. She demonstrates potential to gain strength in the left hip to improve her mobility and safety with ambulation. Patient Education: Education of diagnosis, Body/Joint mechanics, Home Safety, Activity Modification, Education of Plan of Care Rehab Potential: Good Short Term Goals Goal #1: Pt independent in initial HEP. Goal to be met by: 11/29/18 Goal #2: Left hip abductor strength improved to 4-/5. Goal to be met by: 12/06/18 Goal #3: Left hip flexion strength improved to 4/5. Goal to be met by: 12/06/18 Senior Living Goals Goal #1: Pt knows HEP and to continue ex's to maintain functional level at D/C. Goal to be met by: 12/25/18 Goal #2: Score on Tinetti Assessment improved to 25/28. Goal to be met by: 12/25/18 Goal #3: Pt able to get in/out of vehicle without difficulty. Goal to be met by: 12/25/18 Goal #4: Pt to amb. with AAD community distances with good safety, min. deviations. Goal to be met by: 12/25/18 Plan - Treatment to be Provided Procedures: Therapeutic Exercises, Therapeutic Activity, Gait Training, Neuromuscular Rehab, Patient Education Modalities: Cryotherapy, Hot Packs - Treatment Plan Frequency: 2-3 X week Duration: 4 weeks Dates of Senior Living Goals: 12/25/18 Expiration date of current Insurance Approval:: NA - Treatment Code (1) Weakness of left hip Code(s): M62.81 - MUSCLE WEAKNESS (GENERALIZED) Comments: M62.81 (2) At high risk for falls Code(s): Z91.81 - HISTORY OF FALLING Comments: Z91.81 (3) Gait abnormality Code(s): R26.9 - UNSPECIFIED ABNORMALITIES OF GAIT AND MOBILITY Comments: R26.9 (4) History of hip surgery Code(s): Z98.890 - OTHER SPECIFIED POSTPROCEDURAL STATES Comments: Z98.890 Left hip ORIF
--- NOTE | 2018-11-20 11:51 | RS.OPPTDN ---
Subjective Date of Note: 11/20/18 Visit #: 2 Number of visits approved by Insurance: na Date of Evaluation: 11/14/18 Payer Source: MEDICARE Treatment Diagnosis: Left hip weakness, gait abnormality Current Subjective/complaints:: Patient reports weakness in left LE with getting in and out of passenger side of vehicles. States she will work on basic HEP. Pain Assessment - Pain Description Pain Location: left hip Current Pain Intensity: mild Other Comments regarding Pain:: Increased discomfort following exercise. Reports HP reduced pain. - Heat/Cryotherapy Treatment: Hot Pack ([id number] to the left hip following exercises. Patient in sitting. ) Interventions - Exercise/Activities/Manual Therapy Exercises/Activities: Mat exercises of SAQ 4# and Alt hip flexion 4#. Assisted SLR and hip abd. Isometric hip add. Alt hip flexion no weights. Green theraband for hip abd. all 2s/10reps. In sitting, alt hip flexion and isometric hip add. Standing at hand-rail for alt hip flexion/marching, alt hip abd, mini-squats. Left hip flexion and abd lifting left foot onto box, sets of 5reps onto different heights. Discussion of different standing positions when getting into vechicle. Total minutes of Exercise: 41mins Manual Therapy: NA - Charges Timed Code Treatment Minutes: 41mins Total Treatment Time: 61mins Procedures billed for this date of service:: EX3, HP Assessment: Patient attentive to instruction of HEP and changes in positioning to get into car. Patient Education: Home Exercise Program Patient demonstrates compliance with HEP?: Yes Short Term Goals Goal #1: Pt independent in initial HEP. Goal to be met by: 11/29/18 Progress towards Goal:: Progressing Goal #2: Left hip abductor strength improved to 4-/5. Goal to be met by: 12/06/18 Goal #3: Left hip flexion strength improved to 4/5. Goal to be met by: 12/06/18 [facility] Goals Goal #1: Pt knows HEP and to continue ex's to maintain functional level at D/C. Goal to be met by: 12/25/18 Goal #2: Score on Tinetti Assessment improved to 25/28. Goal to be met by: 12/25/18 Goal #3: Pt able to get in/out of vehicle without difficulty. Goal to be met by: 12/25/18 Goal #4: Pt to amb. with AAD community distances with good safety, min. deviations. Goal to be met by: 12/25/18 Plan Dates of [facility] Goals: 12/25/18 Expiration date of current Insurance Approval:: 12/25/18 PLAN: Progress strengthening of the left LE to increase her mobility with functional activities.
--- NOTE | 2018-11-22 11:21 | RS.OPPTDN ---
Subjective Date of Note: 11/22/18 Visit #: 3 Number of visits approved by Insurance: na Date of Evaluation: 11/14/18 Payer Source: MEDICARE Treatment Diagnosis: Left hip weakness, gait abnormality Current Subjective/complaints:: Patient reports some soreness left hip after exercise. States she feels she is lifting left LE a little better with daily activities. Pain Assessment - Pain Description Pain Location: left hip Current Pain Intensity: mild with some activities - Heat/Cryotherapy Treatment: Hot Pack ([id number] to the left hip following EX. Patient in sitting. ) Interventions - Exercise/Activities/Manual Therapy Exercises/Activities: Mat exercises of SAQ 4# and Alt hip flexion 4#. Assisted SLR and hip abd, increased to 3s/10reps. Isometric hip add. Alt hip flexion no weights, increased to 3s/10reps. Green theraband for hip abd, 2s/10reps each. In sitting, alt hip flexion, isometric hip add, and isometric left hip abd. Standing at hand-rail for alt hip flexion/marching, alt hip abd, mini-squats. Left hip flexion and abd, sets of 5reps lifting left foot onto different heights. Reviewed HEP and patient given copy of new exercises. Total minutes of Exercise: 38mins Manual Therapy: NA - Charges Timed Code Treatment Minutes: 38mins Total Treatment Time: 58mins Procedures billed for this date of service:: HP, EX3 Assessment: Patient progressing with exercise and active motion of the left LE. Patient Education: Home Exercise Program Patient demonstrates compliance with HEP?: Yes Short Term Goals Goal #1: Pt independent in initial HEP. Goal to be met by: 11/29/18 Progress towards Goal:: Progressing Goal #2: Left hip abductor strength improved to 4-/5. Goal to be met by: 12/06/18 Goal #3: Left hip flexion strength improved to 4/5. Goal to be met by: 12/06/18 Medical Insurance Coder Goals Goal #1: Pt knows HEP and to continue ex's to maintain functional level at D/C. Goal to be met by: 12/25/18 Goal #2: Score on Tinetti Assessment improved to 25/28. Goal to be met by: 12/25/18 Goal #3: Pt able to get in/out of vehicle without difficulty. Goal to be met by: 12/25/18 Goal #4: Pt to amb. with AAD community distances with good safety, min. deviations. Goal to be met by: 12/25/18 Plan Dates of [facility] Goals: 12/25/18 Expiration date of current Insurance Approval:: 12/25/18 PLAN: Progess exercise to increase functional mobility and activity level.
--- NOTE | 2018-11-27 13:33 | RS.OPPTDN ---
Subjective Date of Note: 11/27/18 Visit #: 4 Number of visits approved by Insurance: na Date of Evaluation: 11/14/18 Payer Source: MEDICARE Treatment Diagnosis: Left hip weakness, gait abnormality Current Subjective/complaints:: Patient reports left hip seems stronger. Reports working on HEP as instructed. Pain Assessment - Pain Description Pain Location: left hip Current Pain Intensity: mild with some movements - Heat/Cryotherapy Treatment: Hot Pack ([id number] to the left hip following exercise. Patient in sitting. ) Interventions - Exercise/Activities/Manual Therapy Exercises/Activities: Mat exercises of SAQ 4# and Alt hip flexion 4#. SLR and hip abd, with assist on the last set, 3s/10reps. Isometric hip add. Alt hip flexion no weights, increased to 3s/10reps. Green theraband for hip abd, 2s/ 10reps each. In sitting, alt hip flexion, isometric hip add, and isometric left hip abd. Yellow theraband for resisted hip abd. At hand-rail, lateral step -ups on left LE. Forward march left foot onto stepper board. Standing at hand- rail for alt hip flexion/marching, alt hip abd, mini-squats. Left hip flexion and abd, sets of 5reps lifting left foot onto different box heights. Reviewed HEP, not new additions. Total minutes of Exercise: 41mins Manual Therapy: NA - Charges Timed Code Treatment Minutes: 41mins Total Treatment Time: 61mins Procedures billed for this date of service:: EX3, HP Assessment: Patient progressing with exercise and reports of increased strength in the left LE. Patient Education: Body/Joint mechanics, Home Exercise Program, Home Safety, Activity Modification Patient demonstrates compliance with HEP?: Yes Short Term Goals Goal #1: Pt independent in initial HEP. Goal to be met by: 11/29/18 Progress towards Goal:: Progressing Goal #2: Left hip abductor strength improved to 4-/5. Goal to be met by: 12/06/18 Progress towards Goal:: Progressing Goal #3: Left hip flexion strength improved to 4/5. Goal to be met by: 12/06/18 Progress towards Goal:: Progressing Prison Goals Goal #1: Pt knows HEP and to continue ex's to maintain functional level at D/C. Goal to be met by: 12/25/18 Goal #2: Score on Tinetti Assessment improved to 25/28. Goal to be met by: 12/25/18 Goal #3: Pt able to get in/out of vehicle without difficulty. Goal to be met by: 12/25/18 Goal #4: Pt to amb. with AAD community distances with good safety, min. deviations. Goal to be met by: 12/25/18 Plan Dates of Metal Patternmaker Apprentice Goals: 12/25/18 Expiration date of current Insurance Approval:: 12/25/18 PLAN: Progress strengthening to improve gait and functional activity level.
--- NOTE | 2018-11-29 15:22 | RS.OPPTDN ---
Subjective Date of Note: 11/29/18 Visit #: 5 Number of visits approved by Insurance: na Date of Evaluation: 11/14/18 Payer Source: MEDICARE Treatment Diagnosis: Left hip weakness, gait abnormality Current Subjective/complaints:: Patient reports she had increased soreness left hip and tight following last session. Pain Assessment - Pain Description Pain Location: left hip, anterior thigh Current Pain Intensity: mild - Heat/Cryotherapy Treatment: Hot Pack (ended with 20mins to the left alteral hip and upper thigh following EX. patient in sitting. ) Interventions - Exercise/Activities/Manual Therapy Exercises/Activities: Mat exercises of SAQ 4# and Alt hip flexion 4#. SLR and hip abd, with assist on the last set, 3s/10reps. Isometric hip add. Alt hip flexion no weights, increased to 3s/10reps. Green theraband for hip abd, 2s/ 10reps each. In sitting, alt hip flexion, isometric hip add, and isometric left hip abd. Yellow theraband for resisted hip abd. At hand-rail, lateral step -ups on left LE. Forward step ups on stepper board leading with left LE. Left hip flexion and abd, sets of 5reps lifting left foot onto box standing in different positions. Total minutes of Exercise: 42mins Manual Therapy: NA HOME EXERCISE PROGRAM: Isometric hip add, alt hip flexion, SLR - Charges Timed Code Treatment Minutes: 42mins Total Treatment Time: 62mins Procedures billed for this date of service:: EX3, HP Assessment: Patient progressing with strengthening. Patient Education: Home Exercise Program Patient demonstrates compliance with HEP?: Yes Short Term Goals Goal #1: Pt independent in initial HEP. Goal to be met by: 11/29/18 Progress towards Goal:: Progressing Goal #2: Left hip abductor strength improved to 4-/5. Goal to be met by: 12/06/18 Progress towards Goal:: Progressing Goal #3: Left hip flexion strength improved to 4/5. Goal to be met by: 12/06/18 Progress towards Goal:: Progressing Alf Goals Goal #1: Pt knows HEP and to continue ex's to maintain functional level at D/C. Goal to be met by: 12/25/18 Goal #2: Score on Tinetti Assessment improved to 25/28. Goal to be met by: 12/25/18 Goal #3: Pt able to get in/out of vehicle without difficulty. Goal to be met by: 12/25/18 Goal #4: Pt to amb. with AAD community distances with good safety, min. deviations. Goal to be met by: 12/25/18 Plan Dates of Steep Tender Goals: 12/25/18 Expiration date of current Insurance Approval:: 12/25/18 PLAN: Progress with strengthening of the bilateral LE's to increase functional ambulation and mobility.
--- NOTE | 2018-12-04 11:04 | RS.OPPTDN ---
Subjective Date of Note: 12/04/18 Visit #: 6 Number of visits approved by Insurance: na Date of Evaluation: 11/14/18 Payer Source: MEDICARE Treatment Diagnosis: Left hip weakness, gait abnormality Current Subjective/complaints:: Patient reports she went out of town with family this weekend. States she has more fatigue with exercise today, but is much stronger overall. States she has less difficulty lifting left LE into passenger side of a vehicle. Also reports she worked on HEP while away. Pain Assessment - Pain Description Pain Location: left hip/anterior thigh Pain Description: Aching Current Pain Intensity: mild to mod - Heat/Cryotherapy Treatment: Hot Pack ([id number] to the left hip, anterior thigh following exercise. Patient in sitting. ) Interventions - Exercise/Activities/Manual Therapy Exercises/Activities: SAQ 4# and Alt hip flexion 4#. SLR and hip abd, with assist on the last set, 3s/10reps. Isometric hip add and isometric ankle inversion with hip IR, both with ball. Alt hip flexion no weights, then static hold of left LE off table. Green theraband for hip abd, 2s/10reps each. Green theraband ankle df. Bilateral SAQ with 2# ball between feet. In sitting, alt hip flexion, isometric hip add, and isometric left hip abd. At hand-rail, marching and alt hip abd. Lateral step-ups on 4" stepper board 2s/5reps each side. Alt step-ups. Left hip flexion and abd, sets of 5reps lifting left foot onto box standing in different positions. Total minutes of Exercise: 43mins Manual Therapy: NA HOME EXERCISE PROGRAM: Isometric hip add, alt hip flexion, SLR - Charges Timed Code Treatment Minutes: 43mins Total Treatment Time: 63mins Procedures billed for this date of service:: HP, EX3 Assessment: Patient progressing well with strengthening exercise and reports of improvement in strength and functional activity. Patient Education: Home Exercise Program, Home Safety, Activity Modification Comments: Discussion of proper gait pattern with cane. Patient demonstrates compliance with HEP?: Yes Short Term Goals Goal #1: Pt independent in initial HEP. Goal to be met by: 11/29/18 Progress towards Goal:: Met Goal #2: Left hip abductor strength improved to 4-/5. Goal to be met by: 12/06/18 Progress towards Goal:: Progressing Goal #3: Left hip flexion strength improved to 4/5. Goal to be met by: 12/06/18 Progress towards Goal:: Progressing Manager Customer Goals Goal #1: Pt knows HEP and to continue ex's to maintain functional level at D/C. Goal to be met by: 12/25/18 Goal #2: Score on Tinetti Assessment improved to 25/28. Goal to be met by: 12/25/18 Goal #3: Pt able to get in/out of vehicle without difficulty. Goal to be met by: 12/25/18 Progress towards goal: Progressing Goal #4: Pt to amb. with AAD community distances with good safety, min. deviations. Goal to be met by: 12/25/18 Plan Dates of Group Home Goals: 12/25/18 Expiration date of current Insurance Approval:: 12/25/18 PLAN: Progress with strengthening to increase patients independence and functional activity level.
== END 2018-12-05 23:59 ==
DX: R29.898 Other symptoms and signs involving the musculoskeletal system (principal); M21.961 Unspecified acquired deformity of right lower leg; Q72.812 Congenital shortening of left lower limb; Z96.642 Presence of left artificial hip joint; M17.10 Unilateral primary osteoarthritis, unspecified knee

== ENCOUNTER 2018-12-15 08:25 | Outpatient (CLI) ==
[2017-07-15 13:04] VITALS: BMI 32.9
== END 2018-12-15 08:26 | disposition home or self-care (01) ==
LOC: RHC-LAB 08:25
PROVIDERS: ATTEND General Practice
DX: I10 Essential (primary) hypertension (principal); I73.9 Peripheral vascular disease, unspecified; M17.10 Unilateral primary osteoarthritis, unspecified knee; E13.9 Other specified diabetes mellitus without complications; I48.91 Unspecified atrial fibrillation; Z79.899 Other long term (current) drug therapy
CPT/HCPCS: 36415; 80053; 80061; 81001; 83036; 85025; 87086

== ENCOUNTER 2018-12-25 10:00 | Outpatient (RCR) ==
[2017-07-15 13:04] VITALS: BMI 32.9
--- NOTE | 2018-12-06 12:00 | RS.OPPTDN ---
Subjective Date of Note: 12/06/18 Visit #: 7 Number of visits approved by Insurance: na Date of Evaluation: 11/14/18 Payer Source: MEDICARE Treatment Diagnosis: Left hip weakness, gait abnormality Current Subjective/complaints:: Reports she is doing better with lifting the left LE with step-ups. Reports pain and soreness in the left upper thigh is much better. Pain Assessment - Pain Description Pain Location: left hip, anterior thigh Pain Description: Aching Current Pain Intensity: mild to mod - Heat/Cryotherapy Treatment: Hot Pack ([id number] to the upper left anterior thigh and lateral hip joint following exercise. Patient in sitting. ) Interventions - Exercise/Activities/Manual Therapy Exercises/Activities: SAQ 4# and Alt hip flexion 4#. SLR with 2#, 2s/5reps. Hip abd, no assist today, 2s/10reps. Isometric hip add with ball. Alt hip flexion no weights, then static hold of left LE off table, then 3s/3reps. Green theraband for hip abd, 2s/10reps each. Green theraband ankle df. Bilateral SAQ with 2# ball between feet. In sitting, alt hip flexion with 4# on left. Left FAQ with 4#. Isometric hip add. Left hip flex and abd with 4#. At hand-rail, marching and alt hip abd. Lateral step-ups on 4" stepper board 2s/5reps each side. Alt step-ups. Left hip flexion and abd, sets of 5reps lifting left foot onto box standing in different positions, with 1 1/2# cuff weight today. Total minutes of Exercise: 45mins Manual Therapy: NA HOME EXERCISE PROGRAM: Isometric hip add, alt hip flexion, SLR - Charges Timed Code Treatment Minutes: 45mins Total Treatment Time: 65mins Procedures billed for this date of service:: EX3, HP Assessment: Patient progressing with strengthening exercises and reporting improvement in functional activities. Patient Education: Body/Joint mechanics, Home Exercise Program Patient demonstrates compliance with HEP?: Yes Short Term Goals Goal #1: Pt independent in initial HEP. Goal to be met by: 11/29/18 Progress towards Goal:: Met Goal #2: Left hip abductor strength improved to 4-/5. Goal to be met by: 12/06/18 Progress towards Goal:: Progressing Goal #3: Left hip flexion strength improved to 4/5. Goal to be met by: 12/06/18 Progress towards Goal:: Progressing Intermediate Goals Goal #1: Pt knows HEP and to continue ex's to maintain functional level at D/C. Goal to be met by: 12/25/18 Goal #2: Score on Tinetti Assessment improved to 25/28. Goal to be met by: 12/25/18 Goal #3: Pt able to get in/out of vehicle without difficulty. Goal to be met by: 12/25/18 Progress towards goal: Progressing Goal #4: Pt to amb. with AAD community distances with good safety, min. deviations. Goal to be met by: 12/25/18 Plan Dates of Clinic Mgr Goals: 12/25/18 Expiration date of current Insurance Approval:: 12/25/18 PLAN: Progress exercise to decrease pain and increase strength to improve patients functional activity level and independence.
--- NOTE | 2018-12-11 12:16 | RS.OPPTDN ---
Subjective Date of Note: 12/11/18 Visit #: 8 Number of visits approved by Insurance: na Date of Evaluation: 11/14/18 Payer Source: MEDICARE Treatment Diagnosis: Left hip weakness, gait abnormality Current Subjective/complaints:: Patient reports improvement with ability to lift left LE to get into car, but continues to need assist. Pain Assessment - Pain Description Pain Location: left hip, ant thigh Pain Description: Dull, Aching Current Pain Intensity: mild - Heat/Cryotherapy Treatment: Hot Pack ([id number] to the left hip and anterior thigh following exercise. Patient in sitting. ) Interventions - Exercise/Activities/Manual Therapy Exercises/Activities: SAQ increased to 8# and Alt hip flexion 4#. SLR with 2#, 2s/5reps. Hip abd, no assist, 2s/10reps. Isometric hip add with ball. Static hold of left LE off table, with knee flexed. Green theraband for hip abd in hook-lying, 2s/10reps each. Green theraband ankle df. Bilateral SAQ with ball between feet. Isometric bilateral ankle inversion with hip IR, ball between feet. In sitting, left hip flexion with 4# on left. Left FAQ with 4#. Isometric hip add. At hand-rail, marching and alt hip abd. Lateral step-ups on 4" stepper board 2s/5reps each side. Alt step-ups. Left hip flexion and abd , sets of 5reps lifting left foot onto box standing in different position. In sitting, isometric hip flexion, abd, and add. Total minutes of Exercise: 41mins Manual Therapy: NA HOME EXERCISE PROGRAM: Isometric hip add, alt hip flexion, SLR - Charges Timed Code Treatment Minutes: 41mins Total Treatment Time: 61mins Procedures billed for this date of service:: HP, EX3 Assessment: Patient progressing well with strengthening and seeing improvement with functional activities. Short Term Goals Goal #1: Pt independent in initial HEP. Goal to be met by: 11/29/18 Progress towards Goal:: Met Goal #2: Left hip abductor strength improved to 4-/5. Goal to be met by: 12/06/18 Progress towards Goal:: Progressing Goal #3: Left hip flexion strength improved to 4/5. Goal to be met by: 12/06/18 Progress towards Goal:: Progressing Senior Living Goals Goal #1: Pt knows HEP and to continue ex's to maintain functional level at D/C. Goal to be met by: 12/25/18 Goal #2: Score on Tinetti Assessment improved to 25/28. Goal to be met by: 12/25/18 Goal #3: Pt able to get in/out of vehicle without difficulty. Goal to be met by: 12/25/18 Progress towards goal: Progressing Goal #4: Pt to amb. with AAD community distances with good safety, min. deviations. Goal to be met by: 12/25/18 Plan Dates of Manager Environmental Health And Safety Goals: 12/25/18 Expiration date of current Insurance Approval:: 12/25/18 PLAN: Progress with strengthening.
--- NOTE | 2018-12-13 13:53 | RS.OPPTDN ---
Subjective Date of Note: 12/13/18 Visit #: 9 Number of visits approved by Insurance: na Date of Evaluation: 11/14/18 Payer Source: MEDICARE Treatment Diagnosis: Left hip weakness, gait abnormality Current Subjective/complaints:: Patient reports she had an increase in pain and muslce soreness after last session with increased resistive work. States soreness has resolved and she wants to continue progressing exercise to increase her functional activity level. Pain Assessment - Pain Description Pain Location: left hip, anterior upper thigh Current Pain Intensity: mild - Heat/Cryotherapy Treatment: Hot Pack ([id number] to the left hip and anterior upper thigh following exercise. Patient in sitting. ) Interventions - Exercise/Activities/Manual Therapy Exercises/Activities: SAQ 6# and Alt hip flexion 4#. SLR with 1 1/2#, 2s/ 10reps. Hip abd, no assist, 2s/10reps. Isometric hip add with ball. Blue theraband for hip abd in hook-lying, 2s/10reps each. Blue theraband ankle df. Bilateral SAQ with ball between feet and 1 1/2# each ankle. Isometric bilateral ankle inversion with hip IR, ball between feet. In sitting, alt hip flexion with 4# and alt FAQ with 4#. Isometric hip add. At hand-rail, marching and alt hip abd. Lateral step-ups on 4" stepper board 2s/10reps each side. Alt step-ups. Left foot tap on board with 1 1/2# each ankle today. Left hip flexion and abd with 1 1/2#, sets of 5reps lifting left foot onto box standing in different position. In sitting, isometric hip flexion, abd, and add. Total minutes of Exercise: 36mins Manual Therapy: NA HOME EXERCISE PROGRAM: Isometric hip add, alt hip flexion, SLR - Charges Timed Code Treatment Minutes: 36mins Total Treatment Time: 56mins Procedures billed for this date of service:: EX2, HP Assessment: Patient progressing well with strengthening of the left LE and with functional mobility. Patient Education: Home Exercise Program Patient demonstrates compliance with HEP?: Yes Short Term Goals Goal #1: Pt independent in initial HEP. Goal to be met by: 11/29/18 Progress towards Goal:: Met Goal #2: Left hip abductor strength improved to 4-/5. Goal to be met by: 12/06/18 Progress towards Goal:: Progressing Goal #3: Left hip flexion strength improved to 4/5. Goal to be met by: 12/06/18 Progress towards Goal:: Progressing Snf Goals Goal #1: Pt knows HEP and to continue ex's to maintain functional level at D/C. Goal to be met by: 12/25/18 Progress towards goal: Progressing Goal #2: Score on Tinetti Assessment improved to 25/28. Goal to be met by: 12/25/18 Goal #3: Pt able to get in/out of vehicle without difficulty. Goal to be met by: 12/25/18 Progress towards goal: Partially Met Goal #4: Pt to amb. with AAD community distances with good safety, min. deviations. Goal to be met by: 12/25/18 Progress towards goal: Progressing Plan Dates of Snf Goals: 12/25/18 Expiration date of current Insurance Approval:: 12/25/18 PLAN: Progress with strengthening to increase functional ambulation and activity level.
--- NOTE | 2018-12-18 15:58 | RS.OPPTDN ---
Subjective Date of Note: 12/18/18 Visit #: 10 Number of visits approved by Insurance: na Date of Evaluation: 11/14/18 Payer Source: MEDICARE Treatment Diagnosis: Left hip weakness, gait abnormality Current Subjective/complaints:: Patient reports she is doing more activities around her home. States she is able to stand for longer periods to cook, wash dishes, and hanging wet laundry on rack. States she is doing better getting in and out of vechicle. Pain Assessment - Pain Description Pain Location: left hip and upper thigh Current Pain Intensity: mild - Heat/Cryotherapy Treatment: Hot Pack (Ended with 20mins HP to the left hip and upper thigh. Patient in sitting. ) Interventions - Exercise/Activities/Manual Therapy Exercises/Activities: SAQ 6# and Alt hip flexion 4#. SLR increased to 2#, 2s/ 10reps. Hip abd, 3#, 4s/5reps. Isometric hip add with ball. Blue theraband for hip abd in hook-lying, 2s/10reps each. Bilateral SAQ with ball between feet and 3# each ankle. Isometric bilateral ankle inversion with hip IR, ball between feet. In sitting, alt hip flexion with 4# and alt FAQ with 4#. Isometric hip add. In sitting, green theraband ham curl. left hip flexion 3#, then hip flex and abd with 3#. Lateral step-ups on 4" stepper board 1 1/2# 2s/ 10reps each side. Then step ups with 1 1/2#, 2s/10reps each. Left hip flexion and abd with 1 1/2#, sets of 5reps lifting left foot onto box standing in different position. Total minutes of Exercise: 42mins Manual Therapy: NA HOME EXERCISE PROGRAM: Isometric hip add, alt hip flexion, SLR - Objective Findings Observations,measurements,etc.: Patient scores a 19/28 or 32% deficit on Tinetti Assessment (was 15/28 or 46.5% on Eval) - Charges Timed Code Treatment Minutes: 42mins Total Treatment Time: 62mins Procedures billed for this date of service:: EX3, HP Assessment: Patient reporting progress with functional activity at home and will benefit from continued therapy at this time. Patient Education: Home Exercise Program Patient demonstrates compliance with HEP?: Yes Short Term Goals Goal #1: Pt independent in initial HEP. Goal to be met by: 11/29/18 Progress towards Goal:: Met Goal #2: Left hip abductor strength improved to 4-/5. Goal to be met by: 12/06/18 Progress towards Goal:: Partially Met Comments:: 4-/5 in limited range Goal #3: Left hip flexion strength improved to 4/5. 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 Goal to be met by: 12/25/18 Progress towards goal: Progressing Goal #2: Score on Tinetti Assessment improved to 25/28. Goal to be met by: 12/25/18 Progress towards goal: Progressing Goal #3: Pt able to get in/out of vehicle without difficulty. Goal to be met by: 12/25/18 Progress towards goal: Partially Met Goal #4: Pt to amb. with AAD community distances with good safety, min. deviations. Goal to be met by: 12/25/18 Progress towards goal: Met Plan Dates of Sheet [employer] Sander Goals: 12/25/18 Expiration date of current Insurance Approval:: 12/25/18 PLAN: Continue current POC and progress functional activity level.
--- NOTE | 2018-12-25 12:02 | RS.OPPTDN ---
Subjective Date of Note: 12/25/18 Visit #: 11 Number of visits approved by Insurance: na Date of Evaluation: 11/14/18 Payer Source: MEDICARE Treatment Diagnosis: Left hip weakness, gait abnormality Current Subjective/complaints:: Patient reports left LE is getting stronger. States she tried to walk around [employer], but had difficulty due to pain. States she is getting around her home much better. Pain Assessment - Pain Description Pain Location: left hip Current Pain Intensity: mild with some movements - Heat/Cryotherapy Treatment: Hot Pack (Ended with 20mins of HP to the left hip and anterior upper thigh. Patient in sitting. ) Interventions - Exercise/Activities/Manual Therapy Exercises/Activities: SAQ 6# and Alt hip flexion increasd to 5#. SLR with 1#, 2s/5reps then 2s/10reps. Hip abd, 1#, 3s/10reps. These exercises performed bilaterally. Isometric hip add and isometric ankle inversion, both with ball. Green theraband for hip abd in hook-lying, 2s/10reps each. Bilateral SAQ with ball between feet and 5# to each ankle. In sitting, alt hip flexion and alt FAQ no weights. Isometric hip add. In sitting, green theraband ham curl. Lateral step-ups on 4" stepper board 2s/10reps each side. Then step ups, 2s/ 10reps each. Left hip flexion and abd at different angles of hip abd, lifting left foot onto box at different heights. Total minutes of Exercise: 42mins Manual Therapy: NA HOME EXERCISE PROGRAM: Isometric hip add, alt hip flexion, SLR - Charges Timed Code Treatment Minutes: 42mins Total Treatment Time: 62mins Procedures billed for this date of service:: EX3, HP Assessment: Patient has progressed well and has reported an increase in her functional aambulation around her home. She is getting out into the community more for activities such as shopping. Long distance walking is limited due to increased pain. Patient Education: Home Exercise Program Patient demonstrates compliance with HEP?: Yes Short Term Goals Goal #1: Pt independent in initial HEP. Goal to be met by: 11/29/18 Progress towards Goal:: Met Goal #2: Left hip abductor strength improved to 4-/5. Goal to be met by: 12/06/18 Progress towards Goal:: Partially Met Goal #3: Left hip flexion strength improved to 4/5. Goal to be met by: 12/06/18 Progress towards Goal:: Progressing Medical Reviewer Goals Goal #1: Pt knows HEP and to continue ex's to maintain functional level at D/C. Goal to be met by: 12/25/18 Progress towards goal: Met Goal #2: Score on Tinetti Assessment improved to 25/28. Goal to be met by: 12/25/18 Progress towards goal: Progressing Comments: Goal #3: Pt able to get in/out of vehicle without difficulty. Goal to be met by: 12/25/18 Progress towards goal: Partially Met (Can get in/out of her vehicle without difficulty, some challenges with family vehicle that is higher.) Goal #4: Pt to amb. with AAD community distances with good safety, min. deviations. Goal to be met by: 12/25/18 Progress towards goal: Met Plan Dates of Medical Reviewer Goals: 12/25/18 Expiration date of current Insurance Approval:: 12/25/18 PLAN: Discharge as patient has completed her POC.
--- NOTE | 2019-01-02 13:55 | RS.PTSUM ---
Progress Note/Summary Date of Note: 12/19/18 Date of Evaluation: 11/14/18 Number of Visits: 10 Number of visits approved by Insurance: NA Reporting Period for this Progress Note: 11/14/18 through 12/18/18 Current Complaints/Gains: Asha states she is resumed her exercise class at [employer] (sitting exercises). Reports she can stand longer to cook, do dishes, and hang out wet laundry on drying rack. States she is also getting in/out of the vehicle better. Objective Measurements/Presentation: Left hip abd 4-/5. G Codes: NA Source of G Code Score: NA - Short Term Goals Goal #1: Pt independent in initial HEP. Goal to be met by: 11/29/18 Progress towards Goal:: Met Goal #2: Left hip abductor strength improved to 4-/5. Goal to be met by: 12/06/18 Progress towards Goal:: Partially Met Goal #3: Left hip flexion strength improved to 4/5. Goal to be met by: 12/06/18 Progress towards Goal:: Progressing - Non Destructive Testing Inspector Goals Goal #1: Pt knows HEP and to continue ex's to maintain functional level at D/C. Goal to be met by: 12/25/18 Progress towards goal: Met Goal #2: Score on Tinetti Assessment improved to 25/28. Goal to be met by: 12/25/18 Progress towards goal: Progressing Goal #3: Pt able to get in/out of vehicle without difficulty. Goal to be met by: 12/25/18 Progress towards goal: Partially Met Goal #4: Pt to amb. with AAD community distances with good safety, min. deviations. Goal to be met by: 12/25/18 Progress towards goal: Met - Assessment Assessment of Improvement/Progress: Patient has shown progress towards goals. She demonstates potential to benefit from a few more visits of strengthening exercises and activties to improve safety with gait. - Plan Plan: Complete remaining visits on current order. Frequency: 2 X week Duration: 1 week Dates of Non Destructive Testing Inspector Goals: 12/25/18 Expiration date of current Insurance Approval:: 12/25/18
--- NOTE | 2019-01-04 15:59 | RS.OPPTDC ---
Date of Discharge: 12/25/18 Date of Evaluation: 11/14/18 Number of Visits: 11 Treatment Diagnosis: Left hip weakness, gait abnormality Current Complaints/Gains: Ms. Khoury states she is walking better and LLE is stronger. States she cannot walk longer distances, such as [employer], due to increased hip pain. She is getting in/out of a car much better. Reports being able to walk moderate community distances for ADL's. Also reports able to stand longer to perform ADL's at home. Functional Outcome Measure Tinetti: 19 () - G Codes & Severity Modifier G Codes & Modifier: NA Source of G Code score: NA Interventions - Exercise/Activities/Manual Therapy Exercises/Activities: NA Manual Therapy: NA HOME EXERCISE PROGRAM: Isometric hip add, alt hip flexion, SLR - Objective Findings Observations,measurements,etc.: Left hip abduction 4-/5 in limited ROM. Independent with HEP. - Charges Timed Code Treatment Minutes: NA Total Treatment Time: NA Procedures billed for this date of service:: NA Assessment Assessment: Ms. Khoury reports overall improvement with therapy, as she has improved her functional ability with standing and ambulation. Score on Tinetti Assessment improved from 15/28 at initial evaluation to , showing improved safety with ambulation. She appears to have met her maximum potential at this time. She has a HEP to continue on her own. Short Term Goals Goal #1: Pt independent in initial HEP. Goal to be met by: 11/29/18 Progress towards Goal:: Met Goal #2: Left hip abductor strength improved to 4-/5. Goal to be met by: 12/06/18 Progress towards Goal:: Partially Met Goal #3: Left hip flexion strength improved to 4/5. Goal to be met by: 12/06/18 Progress towards Goal:: Partially Met Electromechanical Technician Goals Goal #1: Pt knows HEP and to continue ex's to maintain functional level at D/C. Goal to be met by: 12/25/18 Progress towards goal: Met Goal #2: Score on Tinetti Assessment improved to 25/28. Goal to be met by: 12/25/18 Progress towards goal: Not Met Comments: Progressed to Goal #3: Pt able to get in/out of vehicle without difficulty. Goal to be met by: 12/25/18 Progress towards goal: Partially Met Goal #4: Pt to amb. with AAD community distances with good safety, min. deviations. Goal to be met by: 12/25/18 Progress towards goal: Met Plan Reason for Discharge:: Maximum Potential Met
== END 2019-01-05 23:59 ==
PROVIDERS: ATTEND General Practice
DX: R29.898 Other symptoms and signs involving the musculoskeletal system (principal); M21.961 Unspecified acquired deformity of right lower leg; Q72.812 Congenital shortening of left lower limb; M17.10 Unilateral primary osteoarthritis, unspecified knee; Z96.642 Presence of left artificial hip joint

== ENCOUNTER 2023-01-01 08:10 | Inpatient (IN) ==
--- NOTE | 2023-01-01 08:22 | ED.PDOC ---
General ED Provider: Dr. JONH LINDSEY MD Chief Complaint: Hypoglycemia Stated Complaint: low blood sugar Time Seen by Provider: 01/01/23 08:18 Primary Care Provider: OLEGARIO TAM APRN, LOG POND WORKER-C Nursing and Triage Documentation Reviewed and Agree: Yes Does patient meet sepsis criteria?: No System Inflammatory Response Syndrome: Not Applicable Sepsis Protocol: For patient's 13 years and over: Temp is 96.8 and below OR 101 and greater Pulse >90 BPM Resp >20/minute Acutely Altered Mental Status Are patient's symptoms suggestive of a new infection, such as: -Pneumonia -Skin, Soft Tissue -Endocarditis -UTI -Bone, Joint Infection -Implantable Device -Acute Abdominal Infection -Wound Infection -Meningitis -Blood Stream Catheter Infection -Unknown Review of Systems Review Of Systems Constitutional: Reports No symptoms All Other Systems: Reviewed and Negative [facility] Medical History Arthritis M19.90 - Unspecified osteoarthritis, unspecified site (ICD-10) Atrial fibrillation I48.91 - Unspecified atrial fibrillation (ICD-10) Bone fracture T14.8XXA - Other injury of unspecified body region, initial encounter (ICD- 10) Cataract H26.9 - Unspecified cataract (ICD-10) 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, unspecified (ICD-10) Diabetes mellitus E11.9 - Type 2 diabetes mellitus without complications (ICD-10) Dyslipidemia E78.5 - Hyperlipidemia, unspecified (ICD-10) Gait disturbance R26.9 - Unspecified abnormalities of gait and mobility (ICD-10) History of atrial fibrillation Z86.79 - Personal history of other diseases of the circulatory system (ICD- 10) Hyperlipidemia E78.5 - Hyperlipidemia, unspecified (ICD-10) Hypertension I10 - Essential (primary) hypertension (ICD-10) Hypoglycemia E16.2 - Hypoglycemia, unspecified (ICD-10) Iron deficiency anemia D50.9 - Iron deficiency anemia, unspecified (ICD-10) Measles B05.9 - Measles without complication (ICD-10) Mumps B26.9 - Mumps without complication (ICD-10) Thyroid dysfunction E07.9 - Disorder of thyroid, unspecified (ICD-10) Type 2 diabetes mellitus with hemoglobin A1c goal of 7.0%-8.0% E11.9 - Type 2 diabetes mellitus without complications (ICD-10) Type 2 diabetes mellitus with hyperglycemia E11.65 - Type 2 diabetes mellitus with hyperglycemia (ICD-10) Urinary incontinence R32 - Unspecified urinary incontinence (ICD-10) Varicella B01.9 - Varicella without complication (ICD-10) Family History Mother No problems noted. FATHER No problems noted. SISTER No problems noted. SISTER No problems noted. BROTHER No problems noted. Social History (Updated 01/01/23 @ 13:44 by VIBHA ROBLEDO RN) Smoking and tobacco status: Never smoker Alcohol intake: never Counseling given: No Counseling provided: none Substance use type: does not use Counseling given: No Counseling provided: none Lives independently: Yes Do you think of yourself as: straight/heterosexual Current gender identity: female Seatbelt use: always Surgical History Cataract extraction and insertion of intraocular lens History of dental surgery Z92.89 - Personal history of other medical treatment (ICD-10) History of orthopedic surgery Z98.890 - Other specified postprocedural states (ICD-10) Physical Exam Physical Exam Appearance: Reports Well-appearing and No pain distress Ill-appearing: None Pain Distress: None Eyes: Reports JAY, EOMI and Conjunctiva clear ENT: Reports Ears normal, Nose normal and Oropharynx normal Neck: Supple Respiratory: Reports Airway patent, Breath sounds clear and Breath sounds equal Cardiovascular: Reports Pulses normal, No rub and No murmur GI/: Reports Soft, Nontender and No masses Musculoskeletal: Reports Normal strength and ROM intact Skin: Reports Warm, Normal color and Other (superficial laceration on RLE) Neurological: Reports Sensation intact, Motor intact and Alert (oriented to place and person) Psychiatric: Reports Affect appropriate Interpretation EKG Interpretation Rate: Normal Rhythm: Other (afib) Ectopy: None [place]: NL ST Segment: Normal Interpretation: afib with junctional pacemaker, possible old infarct, no acute ischemia EKG Interpretation By: ED Physician Critical Care Note Critical Care Note Total Critical Care Time (mins): 0 Course Course 01/01/23 08:40 01/01/23 08:40 Orders, Labs, Meds: Lab Review 01/01/23 08:40 WBC 9.96 RBC 3.40 L Hgb 9.4 L Hct 30.2 L MCV 88.8 MCH 27.6 MCHC 31.1 L RDW Coeff of Tavares 17.3 H Plt Count 448 H Immature Gran % (Auto) 0.3 Neut % (Auto) 80.1 H Lymph % (Auto) 7.2 L [place] % (Auto) 6.4 Eos % (Auto) 5.8 Baso % (Auto) 0.2 Neut # (Auto) 8.0 H Lymph # (Auto) 0.7 [place] # (Auto) 0.6 Eos # (Auto) 0.6 Baso # (Auto) 0.0 Immature Gran # (Auto) 0.0 Sodium 136.9 Potassium 3.83 Chloride 100.7 Carbon Dioxide 33.0 H Anion Gap 7.03 BUN 17.7 H Creatinine 0.99 Estimated GFR (MDRD) 53.00 BUN/Creatinine Ratio 17.87 Glucose 88.7 Hemoglobin A1c 7.84 H Calcium 9.24 Total Bilirubin 0.39 AST 357.5 H ALT 230.0 H Alkaline Phosphatase 215.1 H Total Protein 6.87 Albumin 3.43 L Globulin 3.44 Albumin/Globulin Ratio 0.99 Amylase 50.2 Lipase 19.6 L TSH 4.000 Orders Category Date Time Status EKG-(ED ONLY) Stat CARDIO 01/01/23 08:20 Completed NPO REMINDER: IMAGING ONCE CARE 01/01/23 09:22 Completed NPO REMINDER: IMAGING ONCE CARE 01/01/23 09:57 Completed Monitor [ED BEEF PLUCK TRIMMER APPLIED] .ONCE EMERGENCY 01/01/23 08:18 Active AMYLASE Stat LAB 01/01/23 08:40 Completed CBC W/ AUTO DIFF Stat LAB 01/01/23 08:40 Completed CMP [COMPREHENSIVE METABOLIC PANEL] Stat LAB 01/01/23 08:40 Completed HEMOGLOBIN A1C Stat LAB 01/01/23 08:40 Completed HEPATITIS PANEL, ACUTE Stat LAB 01/01/23 08:40 Received LIPASE Stat LAB 01/01/23 08:[address] ABDOMEN/PELVIS W CONTRAST Stat RADS 01/01/23 09:56 Completed CXR [CHEST, 1V AP ONLY] Stat RADS 01/01/23 08:20 Completed Medications Generic Name Dose Route Start Last Admin Trade Name Freq PRN Reason Stop Dose Admin Acetaminophen 650 mg 01/01/23 13:34 01/01/23 15:51 Acetaminophen 325 Mg Tablet PO 650 mg Q4H PRN Administration Headache Albuterol Sulfate 2.5 mg 01/01/23 18:00 Albuterol Sulfate 0.083% Vial.Neb NEB RTQ6H ADOLFO Apixaban 5 mg 01/01/23 21:00 Apixaban 5 Mg Tab PO BID ADOLFO Atropine Sulfate 0.5 mg 01/01/23 13:34 Atropine Sulfate Inj 1 Mg/10 Ml Disp.Syrin IVP ONCE PRN Symptomatic Bradycardia Cholecalciferol 1,000 unit 01/01/23 14:30 01/01/23 16:56 Cholecalciferol (Vitamin D3) 1,000 Unit (25 Mcg) Tablet PO 1,000 unit DAILY ADOLFO Administration Dextrose 50 ml 01/01/23 13:34 Dextrose 50 % In Water 50 Ml Disp.Syrin IVP ONCE PRN Unconscious Hypoglycemia Protocol Diltiazem HCl 60 mg 01/01/23 21:00 Diltiazem Hcl 60 Mg Tablet PO Q12HR ADOLFO Ferrous Sulfate 324 mg 01/01/23 21:00 Ferrous Sulfate 324 Mg Tablet. PO BID ADOLFO Fish Oil 2,000 mg 01/01/23 21:00 [place]-3/Dha/Epa/Fish Oil 1,000 Mg Capsule PO BEDTIME ADOLFO Fluticasone Propionate 1 spray 01/02/23 09:00 Fluticasone Propionate 16 Gm Nasal [place] AMANDA DAILY [facility] Insulin Glargine 25 unit 01/01/23 21:00 Insulin Glargine,Hum.Rec.Anlog 100 Units/Ml SUBCUT BEDTIME [facility] Insulin Human Lispro 0 unit 01/01/23 14:40 01/01/23 18:18 Insulin Lispro 100 Unit/Ml (3 Ml) Vial SUBCUT 6 unit PRN PRN Administration Hyperglycemia Protocol Lidocaine 1 patch 01/02/23 09:00 Lidocaine 5% Patch TP DAILY ADOLFO Loratadine 10 mg 01/01/23 14:30 01/01/23 15:52 Loratadine 10 Mg Tablet PO 10 mg DAILY ADOLFO Administration Magnesium Oxide 400 mg 01/01/23 21:00 Magnesium Oxide 400 Mg Tablet PO BID ADOLFO Nitrofurantoin Macrocrystals 50 mg 01/02/23 09:00 Nitrofurantoin Macrocrystal 50 Mg Capsule PO 01/12/23 09:01 DAILY [facility] Nitroglycerin 0.4 mg 01/01/23 13:34 Nitroglycerin 0.4 Mg Tab.Subl SL Q5MIN X 3 DOSES PRN Chest Pain Non-Formulary Medication 4 gm 01/01/23 21:00 Diclofenac Sodium TP BID ADOLFO Nystatin 1 applic 01/01/23 14:18 Nystatin 15 Gm Cream TP QID PRN Rash Pantoprazole Sodium 40 mg 01/01/23 17:00 01/01/23 16:17 Pantoprazole Sodium 40 Mg Tablet. PO 40 mg QDAC ADOLFO Administration Polyethylene Glycol 17 gm 01/01/23 14:38 Polyethylene Glycol 17 Gm Powd.Pack PO DAILY PRN Constipation Potassium Chloride 10 meq 01/02/23 09:00 Potassium Chloride 10 Meq Capsule.Er PO DAILY PRN IF TAKES LASIX Quetiapine Fumarate 25 mg 01/01/23 21:00 Quetiapine Fumarate 25 Mg Tablet PO BEDTIME ADOLFO Sodium Chloride 1 syr 01/01/23 21:00 0.9% Sodium Chloride 10 Ml Disp.Syrin IVF Q8HR ADOLFO Discontinued Medications Generic Name Dose Route Start Last Admin Trade Name Freq PRN Reason Stop Dose Admin Non-Formulary Medication 0 unit 01/01/23 14:18 Insulin Aspart U-100 SUBCUT TIDAC PRN hyperglycemia Pantoprazole Sodium 40 mg 01/01/23 14:30 01/01/23 16:03 Pantoprazole Sodium 40 Mg Tablet. PO Not Given DAILY ADOLFO Vital Signs: Temp Pulse Resp BP Pulse Ox 01/01/23 08:13 97.7 F 73 20 118/72 99 87 years old female who was brought in from nursing facility after she was fine by the staff lethargic patient had a blood sugar of [address] Phan and he ordered to give the patient glucagon and sent her to the emergency room patient was giving glucose of 1 glucagon was not in the emergency kit as per Caren RN at half-way patient blood sugar on EMS arrival was 68 patient was responding better upon arrival patient was able to answer all questions was given orange juice with sugar blood sugar upon arrival to the emergency room was 134 patient was giving breakfast she is alert and oriented x2.Vital signs are stable, EKG is showing atrial fibrillation with competing junctional pacemaker at a rate of 84 no signs of acute ischemia. CBC no leukocytosis patient have normocytic anemia with hemoglobin of 9.4 she has been fluctuating between 8.3 and 9.9. Hemoglobin A1c 7.8.Blood work also showed an AST of 357 which was previously on December 27 39.7 and ALT of 230 which was 42 on December 27 ordered hepatitis panel blood test not available at the hospital will be sent out resu lts will be back next week there is no available ultrasound at this time call Dr. Phan discussed the case with him and he recommended to do CT scan with IV contrast and to check amylase/lipase. Patient is a hard stick I was able to get an IV access in the left arm using ultrasound machine .CT scan was done which did not show any acute liver pathology and showed bilateral kidney stones left kidney staghorn stone with mild hydronephrosis but kidney functions are normal at this time updated Dr. Phan with the results lipase and lipase were also normal Dr. Phan recommended to admit the patient to his services for hypoglycemia patient was admitted to inpatient under Dr. Phan services Discharge Plan Discharge Patient Disposition: ADMITTED INPATIENT Discharge Problem: Transaminitis, Hypoglycemia Did you review [place] CAPTAIN ASSISTANT for ALL controlled substances?: Not Applicable ED Provider: JONH LINDSEY Condition: Stable Physician Progress Note: []
[2023-01-01 08:47] LABS: BASOPHILS % (AUTO) 0.2 % (0.0-3.0); EOSINOPHILS # (AUTO) 0.6 K/ul (0.0-0.7); EOSINOPHILS % (AUTO) 5.8 % (0.0-7.0); HEMATOCRIT 30.2 % (37.0-47.0); HEMOGLOBIN 9.4 g/dl (12.0-16.0); IMMATURE GRANULOCYTE % (AUTO) 0.3 % (0.0-5.0); LYMPHOCYTES # (AUTO) 0.7 K/uL (0.60-3.4); LYMPHOCYTES % (AUTO) 7.2 (10.0-50.0); MEAN CORPUSCULAR HEMOGLOBIN 27.6 pg (27.0-31.0); MEAN CORPUSCULAR HGB CONC 31.1 (31.8-35.4); MEAN CORPUSCULAR VOLUME 88.8 fl (81.0-99.0); MONOCYTES # (AUTO) 0.6 K/uL (0.4-2.0); MONOCYTES % (AUTO) 6.4 (0-10); NEUTROPHILS % (AUTO) 80.1 % (42.2-75.2); PLATELET COUNT 448 10^3/uL (140-440); RDW COEFFICIENT OF VARIATION 17.3 % (11.6-14.8); WHITE BLOOD COUNT 9.96 K/ul (4.6-10.2)
[2023-01-01 08:57] LABS: ALBUMIN 3.43 g/dL (3.5-5.0); ALKALINE PHOSPHATASE 215.1 U/L (53-141); ASPARTATE AMINO TRANSFERASE 357.5 U/L (14-36); BILIRUBIN,TOTAL 0.39 mg/dL (0.2-1.3); BLOOD UREA NITROGEN 17.7 mg/dL (7-17); CALCIUM 9.24 mg/dL (8.4-10.2); CHLORIDE 100.7 mmol/L (98-107); CREATININE 0.99 mg/dL (0.60-1.30); GLUCOSE 88.7 mg/dL (74-106); POTASSIUM 3.83 mmol/L (3.5-5.1); SODIUM 136.9 mmol/L (134.5-145); TOTAL PROTEIN 6.87 g/dL (6.3-8.2)
--- NOTE | 2023-01-01 09:03 | DI ---
EXAM: CHEST ONE VIEW, FRONTAL VIEW ONLY. HISTORY: Cough. COMPARISON: 10/14/2021. FINDINGS: Heart at the upper limits of normal in size. Mild central vascular congestion. Atheroscl erotic calcifications present. Subtle consolidation right suprahilar region. There are mild bilater al reticular opacities and bronchial thickening in both lungs otherwise. A few linear opacities at t he lung bases with minimal blunting of the costophrenic angles. No pneumothorax. No acute osseous a bnormality. IMPRESSION: Bilateral opacities which could be due to pneumonia or edema.
[2023-01-01 10:08] LABS: AMYLASE 50.2 U/L (30-110); LIPASE 19.6 U/L (23-300)
--- NOTE | 2023-01-01 11:16 | CT ---
EXAM: CT ABDOMEN WITH CONTRAST. CT PELVIS WITH CONTRAST. HISTORY: Elevated liver function tests. COMPARISON: None. TECHNIQUE: Multiple axial images of the abdomen and pelvis were obtained following intravenous admin istration of iodinated contrast, low osmolar. Images were reformatted in the sagittal and coronal pl ane. FINDINGS: Small bilateral pleural effusions with dependent consolidation in both lower lobes. Subtl e nodularity perihilar right upper lobe and right middle lobe. Subcarinal lymph node measures 1.2 cm short axis on axial image 7. Heart enlarged. Extensive atherosclerotic calcifications present. There is no aneurysm. Degenerative changes present throughout the spine and hips. Proximal left femoral internal fixation hardware noted. There is no focal liver abnormality. No overt surface nodularity. Gallbladder, pancreas, spleen, an d adrenal glands are unremarkable. A 0.4 cm right renal calculus without hydronephrosis. Right kidney otherwise normal. Small cyst pos terior left renal cortex measuring 1.3 cm on axial image 74. Large staghorn calculus in the left low er pole collecting system extending into the left renal pelvis measuring up to 3.5 x 1.7 x 1.6 cm max imum diameter. Mild left hydronephrosis and perinephric stranding. Bladder mildly distended but wit hout focal abnormality. Coarsely calcified 2.2 cm myometrial mass. The uterus is otherwise normal. There is no bowel obstruction. Distal esophageal wall thickening suggested. Small hiatal hernia pre sent. Appendix not seen with certainty. Upper abdominal varices noted. There is no free fluid or free air detected. Small fatty umbilical hernia. IMPRESSION: 1. No discrete abnormality of the liver. 2. Large left renal staghorn calculus with mild left hydronephrosis. 3. Right nephrolithiasis. 4. Distal esophageal wall thickening and small hiatal hernia. 5. Upper abdominal varices of uncertain etiology. 6. Atherosclerosis. 7. Small pleural effusions with bilateral lower lobe consolidation and nonspecific right upper and m iddle lobe nodularity which could represent pneumonia. Follow-up chest CT in 4 weeks recommended for reassessment. 8. Subcarinal lymphadenopathy which could be due to #[address] scans are performed using dose optimization techniques as appropriate to the performed exam an d include at least one of the following: Automated exposure control, adjustment of the mA and/or kV according t o size, and the use of iterative reconstruction technique.
[2023-01-01 12:39] VITALS: BMI 35.3
[2023-01-01] MEDS ORDERED: ATROPINE SULFATE PFS IVP PRN (13:34)
[2023-01-01] MEDS ORDERED: NITROSTAT SL PRN (13:34)
[2023-01-01] MEDS ORDERED: TYLENOL PO PRN (13:34)
[2023-01-01] MEDS ORDERED: DEXTROSE 50%-WATER ABBOJECT IVP PRN (13:34)
[2023-01-01] MEDS ORDERED: NYSTATIN CREAM TP PRN (14:18)
[2023-01-01] MEDS ORDERED: PROTONIX PO SCH (14:30)
[2023-01-01] MEDS ORDERED: MIRALAX PO PRN (14:38)
[2023-01-01] MEDS: HUMALOG SUBCUT PRN ×2 (15:51→18:18)
[2023-01-01] MEDS: CLARITIN PO SCH (15:52)
[2023-01-01] MEDS: PROTONIX PO SCH (16:17)
[2023-01-01] MEDS: VITAMIN D PO SCH (16:56)
[2023-01-01] MEDS: ALBUTEROL 0.083% NEB NEB SCH ×2 (18:44→23:11)
[2023-01-01 20:18] LABS: BILIRUBIN,URINE Negative (NEGATIVE); CLARITY,URINE Slightly (CLEAR); COLOR,URINE Yellow (YELLOW); GLUCOSE, URINE (UA) Trace (NEGATIVE); KETONES,URINE Negative (NEGATIVE); LEUKOCYTE ESTERASE ,URINE 2+ (NEGATIVE); NITRITE,URINE Negative (NEGATIVE); PH,URINE 6.5 (5-9); PROTEIN,URINE 1+ (NEGATIVE); URINE, BLOOD 1+ (NEGATIVE); UROBILINOGEN,URINE 0.2 (0.2)
[2023-01-01 20:28] LABS: BACTERIA,URINE TRACE (NOT PRESENT); SQUAMOUS EPITHELIAL CELL,UR 30-50 (0-5); URINE WBC, MICROSCOPIC 50-100 (0-2)
[2023-01-01] MEDS: MAG-OX PO SCH (20:29)
[2023-01-01] MEDS: SEROQUEL PO SCH (20:30)
[2023-01-01] MEDS: FERROUS SULFATE PO SCH (20:30)
[2023-01-01] MEDS: OMEGA-3 FISH OIL PO SCH (20:30)
[2023-01-01] MEDS: CARDIZEM PO SCH (20:30)
[2023-01-01] MEDS: ELIQUIS PO SCH (20:31)
[2023-01-02] MEDS: LANTUS SUBCUT SCH ×2 (00:01→20:04)
[2023-01-02] MEDS: ALBUTEROL 0.083% NEB NEB SCH ×4 (04:35→23:08)
[2023-01-02] MEDS: PROTONIX PO SCH (05:38)
[2023-01-02 06:49] LABS: BASOPHILS % (AUTO) 0.2 % (0.0-3.0); EOSINOPHILS # (AUTO) 0.8 K/ul (0.0-0.7); HEMATOCRIT 26.3 % (37.0-47.0); HEMOGLOBIN 8.3 g/dl (12.0-16.0); IMMATURE GRANULOCYTE % (AUTO) 0.5 % (0.0-5.0); LYMPHOCYTES % (AUTO) 12.3 (10.0-50.0); MEAN CORPUSCULAR HEMOGLOBIN 27.6 pg (27.0-31.0); MEAN CORPUSCULAR HGB CONC 31.6 (31.8-35.4); MEAN CORPUSCULAR VOLUME 87.4 fl (81.0-99.0); MONOCYTES # (AUTO) 0.9 K/uL (0.4-2.0); MONOCYTES % (AUTO) 10.4 (0-10); NEUTROPHILS # (AUTO) 5.6 K/ul (2.0-6.9); NEUTROPHILS % (AUTO) 66.6 % (42.2-75.2); PLATELET COUNT 390 10^3/uL (140-440); RED BLOOD COUNT 3.01 10^6/ul (4.20-5.40); WHITE BLOOD COUNT 8.43 K/ul (4.6-10.2)
[2023-01-02 07:01] LABS: ALANINE AMINOTRANSFERASE 201.9 U/L (0-35); ALBUMIN 2.91 g/dL (3.5-5.0); ALKALINE PHOSPHATASE 185.3 U/L (53-141); ASPARTATE AMINO TRANSFERASE 286.1 U/L (14-36); BILIRUBIN,TOTAL 0.25 mg/dL (0.2-1.3); BLOOD UREA NITROGEN 19.9 mg/dL (7-17); CALCIUM 9.03 mg/dL (8.4-10.2); CARBON DIOXIDE 31.9 mmol/L (22-30.0); CHLORIDE 95.7 mmol/L (98-107); CREATININE 0.93 mg/dL (0.60-1.30); GLUCOSE 160.4 mg/dL (74-106); POTASSIUM 3.97 mmol/L (3.5-5.1); TOTAL PROTEIN 5.99 g/dL (6.3-8.2)
[2023-01-02] MEDS: MACRODANTIN PO SCH (08:23)
[2023-01-02] MEDS: FLONASE NAS SCH (08:23)
[2023-01-02] MEDS: CARDIZEM PO SCH ×2 (08:23→20:03)
[2023-01-02] MEDS: MAG-OX PO SCH ×2 (08:23→20:02)
[2023-01-02] MEDS: FERROUS SULFATE PO SCH ×2 (08:23→20:03)
[2023-01-02] MEDS: VITAMIN D PO SCH (08:23)
[2023-01-02] MEDS: CLARITIN PO SCH (08:24)
[2023-01-02] MEDS: ELIQUIS PO SCH ×2 (08:24→20:03)
[2023-01-02] MEDS: LIDODERM PATCH 5% TP SCH (08:31)
[2023-01-02] MEDS ORDERED: MICRO-K CAP PO PRN (09:00)
[2023-01-02 09:08] LABS: HBsAgSCREEN Negative (Negative); HCV ANTIBODY Non Reactive (Non Reactive); HEP A AB, IgM Negative (Negative); HEP B CORE Ab, IgM Negative (Negative)
[2023-01-02] MEDS: HUMALOG SUBCUT PRN (17:16)
[2023-01-02] MEDS: OMEGA-3 FISH OIL PO SCH (20:02)
[2023-01-02] MEDS: SEROQUEL PO SCH (20:03)
[2023-01-03] MEDS: ALBUTEROL 0.083% NEB NEB SCH ×4 (04:40→23:55)
[2023-01-03 05:27] LABS: BASOPHILS % (AUTO) 0.5 % (0.0-3.0); EOSINOPHILS # (AUTO) 0.8 K/ul (0.0-0.7); EOSINOPHILS % (AUTO) 9.7 % (0.0-7.0); HEMATOCRIT 27.3 % (37.0-47.0); HEMOGLOBIN 8.7 g/dl (12.0-16.0); IMMATURE GRANULOCYTE % (AUTO) 0.3 % (0.0-5.0); LYMPHOCYTES # (AUTO) 1.2 K/uL (0.60-3.4); LYMPHOCYTES % (AUTO) 15.8 (10.0-50.0); MEAN CORPUSCULAR HEMOGLOBIN 27.8 pg (27.0-31.0); MEAN CORPUSCULAR HGB CONC 31.9 (31.8-35.4); MEAN CORPUSCULAR VOLUME 87.2 fl (81.0-99.0); MONOCYTES % (AUTO) 12.1 (0-10); NEUTROPHILS # (AUTO) 4.9 K/ul (2.0-6.9); NEUTROPHILS % (AUTO) 61.6 % (42.2-75.2); PLATELET COUNT 464 10^3/uL (140-440); RDW COEFFICIENT OF VARIATION 17.6 % (11.6-14.8); RED BLOOD COUNT 3.13 10^6/ul (4.20-5.40); WHITE BLOOD COUNT 7.87 K/ul (4.6-10.2)
[2023-01-03] MEDS: PROTONIX PO SCH (05:33)
[2023-01-03 05:36] LABS: ALBUMIN 3.34 g/dL (3.5-5.0); ALKALINE PHOSPHATASE 202.6 U/L (53-141); BILIRUBIN,TOTAL 0.23 mg/dL (0.2-1.3); CALCIUM 9.24 mg/dL (8.4-10.2); CARBON DIOXIDE 33.7 mmol/L (22-30.0); CHLORIDE 97.8 mmol/L (98-107); CREATININE 0.88 mg/dL (0.60-1.30); GLUCOSE 64.7 mg/dL (74-106); TOTAL PROTEIN 6.68 g/dL (6.3-8.2)
[2023-01-03 06:06] LABS: POTASSIUM 4.09 mmol/L (3.5-5.1)
[2023-01-03] MEDS: FERROUS SULFATE PO SCH ×2 (09:02→20:05)
[2023-01-03] MEDS: MACRODANTIN PO SCH (09:02)
[2023-01-03] MEDS: CARDIZEM PO SCH ×2 (09:03→20:04)
[2023-01-03] MEDS: MAG-OX PO SCH ×2 (09:03→20:05)
[2023-01-03] MEDS: VITAMIN D PO SCH (09:04)
[2023-01-03] MEDS: CLARITIN PO SCH (09:04)
[2023-01-03] MEDS: LIDODERM PATCH 5% TP SCH (09:06)
[2023-01-03] MEDS: ELIQUIS PO SCH ×2 (09:09→20:05)
[2023-01-03] MEDS: FLONASE NAS SCH (09:27)
[2023-01-03] MEDS: SEROQUEL PO SCH (20:05)
[2023-01-03] MEDS: OMEGA-3 FISH OIL PO SCH (20:05)
[2023-01-03] MEDS: LANTUS SUBCUT SCH (21:08)
[2023-01-04] MEDS: ALBUTEROL 0.083% NEB NEB SCH ×4 (04:55→23:10)
[2023-01-04] MEDS: PROTONIX PO SCH (05:34)
[2023-01-04 06:30] LABS: BASOPHILS # (AUTO) 0.1 K/uL (0-0.2); BASOPHILS % (AUTO) 0.9 % (0.0-3.0); EOSINOPHILS # (AUTO) 0.8 K/ul (0.0-0.7); EOSINOPHILS % (AUTO) 13.7 % (0.0-7.0); HEMATOCRIT 27.6 % (37.0-47.0); HEMOGLOBIN 8.7 g/dl (12.0-16.0); IMMATURE GRANULOCYTE % (AUTO) 0.5 % (0.0-5.0); LYMPHOCYTES # (AUTO) 1.5 K/uL (0.60-3.4); LYMPHOCYTES % (AUTO) 24.9 (10.0-50.0); MEAN CORPUSCULAR HGB CONC 31.5 (31.8-35.4); MEAN CORPUSCULAR VOLUME 88.7 fl (81.0-99.0); MONOCYTES # (AUTO) 0.7 K/uL (0.4-2.0); MONOCYTES % (AUTO) 12.3 (0-10); NEUTROPHILS # (AUTO) 2.8 K/ul (2.0-6.9); NEUTROPHILS % (AUTO) 47.7 % (42.2-75.2); PLATELET COUNT 454 10^3/uL (140-440); RDW COEFFICIENT OF VARIATION 17.6 % (11.6-14.8); RED BLOOD COUNT 3.11 10^6/ul (4.20-5.40); WHITE BLOOD COUNT 5.86 K/ul (4.6-10.2)
[2023-01-04 06:43] LABS: ALANINE AMINOTRANSFERASE 154.2 U/L (0-35); ALBUMIN 3.17 g/dL (3.5-5.0); ALKALINE PHOSPHATASE 183.2 U/L (53-141); ASPARTATE AMINO TRANSFERASE 125.3 U/L (14-36); BILIRUBIN,TOTAL 0.23 mg/dL (0.2-1.3); BLOOD UREA NITROGEN 17.7 mg/dL (7-17); CALCIUM 9.16 mg/dL (8.4-10.2); CARBON DIOXIDE 34.9 mmol/L (22-30.0); CHLORIDE 98.2 mmol/L (98-107); CREATININE 0.91 mg/dL (0.60-1.30); GLUCOSE 103.6 mg/dL (74-106); POTASSIUM 4.16 mmol/L (3.5-5.1); SODIUM 135.8 mmol/L (134.5-145); TOTAL PROTEIN 6.35 g/dL (6.3-8.2)
[2023-01-04] MEDS ORDERED: DEXTROSE 50%-WATER ABBOJECT IVP PRN (09:18)
[2023-01-04] MEDS: MAG-OX PO SCH ×2 (09:25→20:49)
[2023-01-04] MEDS: FERROUS SULFATE PO SCH ×2 (09:25→20:48)
[2023-01-04] MEDS: CLARITIN PO SCH (09:27)
[2023-01-04] MEDS: CARDIZEM PO SCH ×2 (09:27→20:48)
[2023-01-04] MEDS: MACRODANTIN PO SCH (09:29)
[2023-01-04] MEDS: LIDODERM PATCH 5% TP SCH (09:31)
[2023-01-04] MEDS: VITAMIN D PO SCH (09:35)
[2023-01-04] MEDS: ELIQUIS PO SCH ×2 (09:38→20:51)
[2023-01-04] MEDS: FLONASE NAS SCH (09:47)
--- NOTE | 2023-01-04 09:57 | PCM.PROG ---
Attending Provider: ATTENDING PROVIDER: Dr. BRYSON BOONE MD This patient is seen with Sharon Momin, Nurse Practitioner. DATE OF SERVICE: 01/04/23 SUBJECTIVE: This 87 year old /WHITE F was hospitalized 01/01/23. Received 15 units of Lantus last night which is a decrease from 25. Glucose is 103 this morning on labs. Liver enzymes are trending down. Alkaline Phosphatase also trending down. Urine culture also normal. The patient is eating moderately well. She is alert and oriented this morning. REVIEW OF SYSTEMS: CONSTITUTIONAL: No night sweats. No fatigue, malaise, lethargy. No fever or chills. Weakness. HEENT: Eyes: No visual changes. No eye pain. No eye discharge. ENT: No runny nose. No epistaxis. No sinus pain. No odynophagia. No congestion. RESPIRATORY: No cough, no congestion. No hemoptysis. No shortness of breath. CARDIOVASCULAR: No angina symptoms. No CHF symptoms. No atypical chest pain for CAD. No palpitations. No orthopnea.. GASTROINTESTINAL: No abdominal pain. No nausea or vomiting. No diarrhea or constipation. No hematemesis. No hematochezia. GENITOURINARY: No urgency. No frequency. No dysuria. No hematuria. No obstructive symptoms. No discharge. No pain. No significant abnormal bleeding. MUSCULOSKELETAL: No musculoskeletal pain; no joint swelling. NEUROLOGICAL: Awake, alert, intermittent confusion. No headache. No neck pain. No syncope. No seizures. No dizziness. PSYCHIATRIC: Not anxious. No depression. No suicidal thoughts. No homicidal thoughts. SKIN: No rash. No lesions. No wounds. ENDOCRINE: No unexplained weight loss. No weight gain. HEMATOLOGIC/LYMPHATIC: No anemia. No purpura. No petechiae. No prolonged or e xcessive bleeding. No palpable lymph nodes. PHYSICAL EXAMINATION: GENERAL: The patient is awake, alert and oriented to person and place, lying in bed in no distress. VITAL SIGNS: Temperature 97.6 F, Pulse 79, Respiratory Rate 18, BP 147/75, Pulse Ox 95% HEENT: Head normocephalic, atraumatic. Eyes: Extraocular muscles are intact. Pupils are equal, round and reactive to light and accommodation. Ears: No lesions. Nose appeared normal. Throat: No exudate or erythema. NECK: Supple. No JVD, no carotid bruit. No lymphadenopathy or thyromegaly. LUNGS: Diminished breath sounds. Clear to auscultation. Percussion note normal. Chest symmetrical. HEART: Irregular heart rate. S1, S2, no S3. No murmurs. No cyanosis or clubbing. No ascites. Pulses: Dorsalis pedis and posterior tibial pulses +1 to +2 both sides. ABDOMEN: Soft. Non-tender. Bowel sounds active. No CVA tenderness. No mass felt. EXTREMITIES: No edema. Full range of motion of all extremities, equal. NEUROLOGIC: No focal deficit. Cranial nerves II through XII are grossly intact. No headache. No double vision. SKIN: Not dry. Intact. Turgor-normal. LYMPHATIC: No palpable lymph nodes/no lymphedema. MUSCULOSKELETAL: Normal joints with no swelling. Muscle tone is normal. LAB REVIEW: 01/04/23 06:25 01/04/23 06:25 01/04/23 06:25: WBC 5.86, RBC 3.11 L, Hgb 8.7 L, Hct 27.6 L, MCV 88.7, MCH 28.0, MCHC 31.5 L, RDW Coeff of Tavares 17.6 H, Plt Count 454 H, Immature Gran % (Auto) 0.5, Neut % (Auto) 47.7, Lymph % (Auto) 24.9, [place] % (Auto) 12.3 H, Eos % (Auto) 13.7 H, Baso % (Auto) 0.9, Neut # (Auto) 2.8, Lymph # (Auto) 1.5, [place] # (Auto) 0.7, Eos # (Auto) 0.8 H, Baso # (Auto) 0.1, Immature Gran # (Auto) 0.0, Sodium 135.8, Potassium 4.16, Chloride 98.2, Carbon Dioxide 34.9 H, Anion Gap 6.86, BUN 17.7 H, Creatinine 0.91, Estimated GFR (MDRD) 59.00, BUN/Creatinine Ratio 19.45, Glucose 103.6, Calcium 9.16, Total Bilirubin 0.23, AST 125.3 H D, ALT 154.2 H D, Alkaline Phosphatase 183.2 H, Total Protein 6.35, Albumin 3.17 L, Globulin 3.18, Albumin/Globulin Ratio 0.99 ASSESSMENT: Please see below. 1. Hypoglycemia 2. Diabetes mellitus type II 3. Elevated liver function 4. Obesity 5. Atrial fibrillation on Eliquis PLAN: 1. Continue Lantus at 15 units 2. Will continue to monitor liver enzymes Plan and coordination of the patient's care discussed in the presence of Cyber Security Consultant and nurse. SCRIBED BY: Bernadine DYKES scribed while in presence of service performed by Sharon Momin APRN on 01/04/23 (0800)
--- NOTE | 2023-01-04 11:35 | PN ---
DATE OF SERVICE: 01/02/23 HISTORY OF PRESENT ILLNESS: 87 year old white female hospitalized with hypoglycemia along with insulin her reaction, the patient had eaten much the day prior. The patient was hospitalized on 01/01/23. The patient was also noted to have liver enzymes elevated AST 357 and ALT 230 with elevated Alkaline phosphatase 215. The patient did not have Jaundice. Today the patient seems to be feeling better according to the granddaughter Nuris who come from [place], She is living with the grandmother the last couple of weeks says that she is mentally sharper than that she was last few days. Appetite has improved, no nausea and no vomiting, no fever or chills. REVIEW OF SYSTEMS: CONSTITUTIONAL: No night sweats. No fatigue, malaise, lethargy. No fever or chills. HEENT: Eyes: No visual changes. No eye pain. No eye discharge. ENT: No runny nose. No epistaxis. No sinus pain. No sore throat. No odynophagia. No ear pain. No congestion. RESPIRATORY: No cough, no congestion. No hemoptysis. No shortness of breath. CARDIOVASCULAR: No angina symptoms. No CHF symptoms. No atypical chest pain for CAD. No palpitations. No PND. No orthopnea. GASTROINTESTINAL: No abdominal pain. No nausea or vomiting. No diarrhea or constipation. No hematemesis. No hematochezia. GENITOURINARY: No urgency. No frequency. No dysuria. No hematuria. No obstructive symptoms. No discharge. No pain. No significant abnormal bleeding. MUSCULOSKELETAL: No musculoskeletal pain. No joint swelling. No arthritis. NEUROLOGICAL: No headache. No neck pain. No syncope. No seizures. No dizziness. PSYCHIATRIC: Not anxious. No depression. No suicidal thoughts. No homicidal thoughts. SKIN: No rash. No lesions. No wounds. ENDOCRINE: No unexplained weight loss. No weight gain. HEMATOLOGIC/LYMPHATIC: No anemia. No purpura. No petechiae. No prolonged or excessive bleeding. No palpable lymph nodes. PHYSICAL EXAMINATION: VITAL SIGNS: Temperature 96.1, pulse 65, respiratory rate 18, blood pressure 110/50 and pulse ox 99% on room air. HEENT: Head normocephalic, atraumatic. Eyes: Extraocular muscles are intact. Pupils are equal, round and reactive to light and accommodation. Ears: No lesions. Nose appeared normal. Throat: No exudate or erythema. NECK: Supple. No JVD, no carotid bruit. No lymphadenopathy or thyromegaly. LUNGS:Decreased breath sounds but clear to auscultation. Percussion note normal. Chest symmetrical. HEART: S1, S2, no S3. No murmur. No cyanosis or clubbing. No ascites. Pulses: Dorsalis pedis and posterior tibial pulses +2 bilaterally. ABDOMEN: Soft. Nontender. Bowel sounds active. No CVA tenderness. No mass felt. EXTREMITIES: No edema. Full range of motion of all extremities, equal. NEUROLOGIC: No focal deficit. Cranial nerves II through XII are grossly intact. No headache, no double vision or headache. SKIN: Not dry. Intact. Turgor - normal. LYMPHATIC: No palpable lymph nodes/no lymphedema. MUSCULOSKELETAL: Normal joints with no swelling. Muscle tone is normal. LABS: Hgb 8.3, hct 26, WBC 8,400 normal differential, creatinine 0.9, BUN 19, potassium 3.9. AST has improved from 357 down 286. ALT from 230 down to 201. Alkaline phosphatase from 215 down to 185. ASSESSMENT: 1. Hypoglycemia seems to be better. Blood sugar today is 160. We have backed off from Lantus insulin was given 25 units. The patient is on Tresiba which is equivalent to Lantus was to be on 35. 2. Liver enzymes are better PLAN: 1. Continue the same monitor blood sugar and liver enzymes 2. The patient's condition is improving. 3. Simin, the granddaughter, is happy with the progress. 4. The patient is on Macrodantin 50mg daily for chronic urinary tract infection CONDITION: Stable. TIME SPENT: More than 75 minutes. MTDD
--- NOTE | 2023-01-04 11:46 | PN ---
DATE OF SERVICE: 01/03/23 SUBJECTIVE: 87 year old white female hospitalized with hypoglycemia and elevated liver enzymes. The patient's condition seems to have improved but this morning she had blood sugar which was not getting adjusted had hypoglycemic reaction for which she was given 50% Glucose IV after that several hours later the patient's condition has improved. She is alert now. The granddaughter in the room. REVIEW OF SYSTEMS: CONSTITUTIONAL: No night sweats. No fatigue, malaise, lethargy. No fever or chills. HEENT: Eyes: No visual changes. No eye pain. No eye discharge. ENT: No runny nose. No epistaxis. No sinus pain. No sore throat. No odynophagia. No congestion. RESPIRATORY: No cough, no congestion. No hemoptysis. No shortness of breath. CARDIOVASCULAR: No angina symptoms. No CHF symptoms. No atypical chest pain for CAD. No palpitations. No PND. No orthopnea. GASTROINTESTINAL: No abdominal pain. No nausea or vomiting. No diarrhea or constipation. No hematemesis. No hematochezia. GENITOURINARY: No urgency. No frequency. No dysuria. No hematuria. No obstructive symptoms. No discharge. No pain. No significant abnormal bleeding. MUSCULOSKELETAL: No musculoskeletal pain; no joint swelling. NEUROLOGICAL: No headache. No neck pain. No syncope. No seizures. No dizziness. PSYCHIATRIC: Not anxious. No depression. No suicidal thoughts. No homicidal thoughts. SKIN: No rash. No lesions. No wounds. ENDOCRINE: No unexplained weight loss. No weight gain. HEMATOLOGIC/LYMPHATIC: No anemia. No purpura. No petechiae. No prolonged or excessive bleeding. No palpable lymph nodes. PHYSICAL EXAMINATION: VITAL SIGNS: Temperature 96, pulse 70, Respiratory rate 18, blood pressure 104/50 and pulse ox 97% on room air. HEENT: Head normocephalic, atraumatic. Eyes: Extraocular muscles are intact. Pupils are equal, round and reactive to light and accommodation. Ears: No lesions. Nose appeared normal. Throat: No exudate or erythema. NECK: Supple. No JVD, no carotid bruit. No lymphadenopathy or thyromegaly. LUNGS: Decreased breath sounds but clear to auscultation. Percussion note normal. Chest symmetrical. HEART: S1, S2, no S3. No murmurs. No cyanosis or clubbing. No ascites. Pulses: Dorsalis pedis and posterior tibial pulses +1 to +2 bilaterally. ABDOMEN: Soft. Nontender. Bowel sounds active. No CVA tenderness. No mass felt. EXTREMITIES: No edema. Full range of motion of all extremities, equal. NEUROLOGIC: No focal deficit. Cranial nerves II through XII are grossly intact. No headache. No double vision. SKIN: Not dry. Intact. Turgor - normal. LYMPHATIC: No palpable lymph nodes/no lymphedema. MUSCULOSKELETAL: Normal joints with no swelling. Muscle tone is normal. LABS: Hgb 8.7, hct 27, WBC 7,800 normal differential creatinine 0.8, BUN 20, potassium 4. ASSESSMENT: 1. Hypoglycemia with insulin reaction happened again while she is hospitalized. The patient's insulin was reduced by 10 units from 35 from 25 from Tresiba to Lantus. We will again reduce the insulin dose now to 15 Lantus at evening time after meals. The patient's oral intake is acceptable. The patient is off now sliding scale with coverage. 2. Liver enzymes have improved from yesterday. Now AST and ALT they both have come down 187 and 193 respectively. Alkaline phosphatase has gone up to 202, just slightly more than what it was yesterday. 3. Hgb and Hct seems to have improved from 8.3 to 8.7 the plt count is borderline elevated. The patient is on Pantoprazole and iron supplements. TIME SPENT: More than 35 minutes. Plan and coordination of the patient's care discussed in the presence of nurse. DENG
--- NOTE | 2023-01-04 12:13 | RS.SLPCNOT ---
Speech Case Note Date of Note: 01/04/23 Title: Speech consult Note: The patient was admitted with low blood sugar inducing difficulty with swallowing, alertness, and orientation. The patient had difficulty swallowing pills yesterday this date; the RN crushed meds in applesauce for safety. ST consult was placed and pt was put on a minced and moist diet for safety. This date, ASSET MANAGEMENT COORDINATOR discussed pt's current status with RN, whom reported 'much improved since yesterday." She went on to explain that she can tolerate one pill at a time and swallow without coughing. At this time, the patient is presenting with 'picky' eating pattern. The ASSET MANAGEMENT COORDINATOR went into pt's room and discussed her current diet of minced and moist with thin liquids. The patient demonstrated the cognition to recognize a modified diet texture and provide a list of 'preferred' food items. She was observed with multiple 'word finding' deficits within the conversation, but the patient also reported, 'I have been confused recently." The ASSET MANAGEMENT COORDINATOR offered her food from her bedside including chips, cheerios, and regular saltine crackers. The patient had been consuming regular diet texture prior to ST consult without difficulty. The ASSET MANAGEMENT COORDINATOR determined a full bedside evaluation will not be warranted at this time. The pt's blood sugar is continually monitored and she is now receiving higher level of care to reduce risk of sugar levels dropping. ASSET MANAGEMENT COORDINATOR recommends pt have regular diet texture with thin liquids. A list of preferred food items will be provided to the kitchen. Thank you for this consult.
--- NOTE | 2023-01-04 14:20 | RS.OTCNOTE ---
OT Case Note Date of Note: 01/04/23 Title: OT case note Note: OT attempted consult this morning and patient was not able to talk well. She was confused and paranoid. She did not understand what was going on nor where she was. Pt's sugar level was below 50. Pt was given 3 orange juices.
[2023-01-04] MEDS: OMEGA-3 FISH OIL PO SCH (20:48)
[2023-01-04] MEDS: SEROQUEL PO SCH (20:49)
[2023-01-04] MEDS: LANTUS SUBCUT SCH (20:54)
[2023-01-04] MEDS ORDERED: HUMALOG SUBCUT STA (21:40)
[2023-01-05] MEDS: ALBUTEROL 0.083% NEB NEB SCH ×4 (04:55→23:05)
[2023-01-05 04:57] LABS: BASOPHILS # (AUTO) 0.1 K/uL (0-0.2); BASOPHILS % (AUTO) 0.9 % (0.0-3.0); EOSINOPHILS # (AUTO) 0.8 K/ul (0.0-0.7); EOSINOPHILS % (AUTO) 11.4 % (0.0-7.0); HEMATOCRIT 28.4 % (37.0-47.0); HEMOGLOBIN 8.8 g/dl (12.0-16.0); IMMATURE GRANULOCYTE # (AUTO) 0.1 (0.0-1.0); IMMATURE GRANULOCYTE % (AUTO) 0.7 % (0.0-5.0); LYMPHOCYTES # (AUTO) 1.4 K/uL (0.60-3.4); LYMPHOCYTES % (AUTO) 21.1 (10.0-50.0); MEAN CORPUSCULAR HEMOGLOBIN 27.4 pg (27.0-31.0); MEAN CORPUSCULAR VOLUME 88.5 fl (81.0-99.0); MONOCYTES # (AUTO) 0.9 K/uL (0.4-2.0); MONOCYTES % (AUTO) 12.4 (0-10); NEUTROPHILS # (AUTO) 3.7 K/ul (2.0-6.9); NEUTROPHILS % (AUTO) 53.5 % (42.2-75.2); PLATELET COUNT 517 10^3/uL (140-440); RED BLOOD COUNT 3.21 10^6/ul (4.20-5.40); WHITE BLOOD COUNT 6.84 K/ul (4.6-10.2)
[2023-01-05 05:11] LABS: ALBUMIN 3.13 g/dL (3.5-5.0); ALKALINE PHOSPHATASE 174.4 U/L (53-141); ASPARTATE AMINO TRANSFERASE 82.8 U/L (14-36); BILIRUBIN,TOTAL 0.23 mg/dL (0.2-1.3); BLOOD UREA NITROGEN 20.4 mg/dL (7-17); CALCIUM 9.41 mg/dL (8.4-10.2); CARBON DIOXIDE 37.2 mmol/L (22-30.0); CHLORIDE 98.1 mmol/L (98-107); CREATININE 0.88 mg/dL (0.60-1.30); GLUCOSE 139.8 mg/dL (74-106); POTASSIUM 4.54 mmol/L (3.5-5.1); SODIUM 134.6 mmol/L (134.5-145); TOTAL PROTEIN 6.37 g/dL (6.3-8.2)
[2023-01-05] MEDS: PROTONIX PO SCH (05:49)
[2023-01-05] MEDS: ELIQUIS PO SCH ×2 (08:36→21:23)
[2023-01-05] MEDS: CLARITIN PO SCH (08:36)
[2023-01-05] MEDS: LIDODERM PATCH 5% TP SCH (08:36)
[2023-01-05] MEDS: CARDIZEM PO SCH ×2 (08:36→21:22)
[2023-01-05] MEDS: MACRODANTIN PO SCH (08:37)
[2023-01-05] MEDS: FERROUS SULFATE PO SCH ×2 (08:37→21:22)
[2023-01-05] MEDS: MAG-OX PO SCH ×2 (08:37→21:22)
[2023-01-05] MEDS: VITAMIN D PO SCH (08:38)
[2023-01-05] MEDS: FLONASE NAS SCH (08:41)
[2023-01-05] MEDS: HUMALOG SUBCUT PRN ×2 (13:12→17:59)
--- NOTE | 2023-01-05 14:19 | PN ---
DATE OF SERVICE: 01/01/23 SUBJECTIVE: The patient was hospitalized today on 01/01/23 with hypoglycemia. The patient [facility]cemic reaction [facility] the shelter. The problem is rising abnormal liver profile with elevated Alkaline phosphatase. The patient's CT scan of the abdomen is reported as practically negative for any liver problems. Will have hepatitis profile done. The patient's appetite has been according to the granddaughter for last couple of days, could be from viral syndrome. In any case the patient had not eaten anything the day prior and now she went into hypoglycemic reaction. The patient is alert, oriented to person and place. REVIEW OF SYSTEMS: CONSTITUTIONAL: No night sweats. No fatigue, malaise, lethargy. No fever or chills. HEENT: Eyes: No visual changes. No eye pain. No eye discharge. ENT: No runny nose. No epistaxis. No sinus pain. No sore throat. No odynophagia. No congestion. RESPIRATORY: No cough, no congestion. No hemoptysis. No shortness of breath. CARDIOVASCULAR: No angina symptoms. No CHF symptoms. No atypical chest pain for CAD. No palpitations. No PND. No orthopnea. GASTROINTESTINAL: No abdominal pain. No nausea or vomiting. No diarrhea or constipation. No hematemesis. No hematochezia. GENITOURINARY: No urgency. No frequency. No dysuria. No hematuria. No obstructive symptoms. No discharge. No pain. No significant abnormal bleeding. MUSCULOSKELETAL: No musculoskeletal pain; no joint swelling. NEUROLOGICAL: No headache. No neck pain. No syncope. No seizures. No dizziness. PSYCHIATRIC: Not anxious. No depression. No suicidal thoughts. No homicidal thoughts. SKIN: No rash. No lesions. No wounds. ENDOCRINE: No unexplained weight loss. No weight gain. HEMATOLOGIC/LYMPHATIC: No anemia. No purpura. No petechiae. No prolonged or excessive bleeding. No palpable lymph nodes. PHYSICAL EXAMINATION: VITAL SIGNS: HEENT: Head normocephalic, atraumatic. Eyes: Extraocular muscles are intact. Pupils are equal, round and reactive to light and accommodation. Ears: No lesions. Nose appeared normal. Throat: No exudate or erythema. NECK: Supple. No JVD, no carotid bruit. No lymphadenopathy or thyromegaly. LUNGS: Clear to auscultation. Percussion note normal. Chest symmetrical. HEART: S1, S2, no S3. No murmurs. No cyanosis or clubbing. No ascites. Pulses: Dorsalis pedis and posterior tibial pulses +1 to +2 bilaterally. ABDOMEN: Soft. Nontender. Bowel sounds active. No CVA tenderness. No mass felt. EXTREMITIES: No edema. Full range of motion of all extremities, equal. NEUROLOGIC: No focal deficit. Cranial nerves II through XII are grossly intact. No headache. No double vision. SKIN: Somewhat dry. Intact. Turgor - normal. Looks somewhat pale. LYMPHATIC: No palpable lymph nodes/no lymphedema. MUSCULOSKELETAL: Normal joints with no swelling. Muscle tone is normal. LABS: Kidney function is normal otherwise, total bilirubin is normal. Amylase and Lipase is normal. PLAN: 1. Hospitalize the patient 2. Decrease dose of Tresiba which would be Lantus in the hospital from 35 to 25 units 3. Sliding scale will be given 4. The patient will be encouraged to eat 5. Will monitor liver functions 6. Continue seems to be stable 7. The patient is DNR TIME SPENT: More than 35 minutes. Plan and coordination of the patient's care discussed in the presence of nurse. DENG
[2023-01-05] MEDS: OMEGA-3 FISH OIL PO SCH (21:22)
[2023-01-05] MEDS: LANTUS SUBCUT SCH (21:33)
[2023-01-06] MEDS: ALBUTEROL 0.083% NEB NEB SCH ×2 (04:45→12:30)
[2023-01-06 05:18] LABS: BASOPHILS # (AUTO) 0.1 K/uL (0-0.2); BASOPHILS % (AUTO) 0.5 % (0.0-3.0); EOSINOPHILS # (AUTO) 1.1 K/ul (0.0-0.7); EOSINOPHILS % (AUTO) 11.6 % (0.0-7.0); HEMATOCRIT 30.6 % (37.0-47.0); HEMOGLOBIN 9.6 g/dl (12.0-16.0); IMMATURE GRANULOCYTE # (AUTO) 0.1 (0.0-1.0); IMMATURE GRANULOCYTE % (AUTO) 0.7 % (0.0-5.0); LYMPHOCYTES # (AUTO) 1.8 K/uL (0.60-3.4); LYMPHOCYTES % (AUTO) 18.8 (10.0-50.0); MEAN CORPUSCULAR HEMOGLOBIN 27.5 pg (27.0-31.0); MEAN CORPUSCULAR HGB CONC 31.4 (31.8-35.4); MEAN CORPUSCULAR VOLUME 87.7 fl (81.0-99.0); MONOCYTES % (AUTO) 10.6 (0-10); NEUTROPHILS # (AUTO) 5.4 K/ul (2.0-6.9); NEUTROPHILS % (AUTO) 57.8 % (42.2-75.2); PLATELET COUNT 584 10^3/uL (140-440); RDW COEFFICIENT OF VARIATION 18.4 % (11.6-14.8); RED BLOOD COUNT 3.49 10^6/ul (4.20-5.40); WHITE BLOOD COUNT 9.38 K/ul (4.6-10.2)
[2023-01-06 05:30] LABS: ALANINE AMINOTRANSFERASE 105.8 U/L (0-35); ALBUMIN 3.31 g/dL (3.5-5.0); ALKALINE PHOSPHATASE 181.8 U/L (53-141); BILIRUBIN,TOTAL 0.2 mg/dL (0.2-1.3); BLOOD UREA NITROGEN 16.7 mg/dL (7-17); CALCIUM 9.15 mg/dL (8.4-10.2); CARBON DIOXIDE 34.2 mmol/L (22-30.0); CHLORIDE 99.6 mmol/L (98-107); CREATININE 0.84 mg/dL (0.60-1.30); POTASSIUM 4.03 mmol/L (3.5-5.1); TOTAL PROTEIN 6.77 g/dL (6.3-8.2)
[2023-01-06 05:34] VITALS: BP 150/68; TEMP 96.8
[2023-01-06] MEDS: PROTONIX PO SCH (05:59)
[2023-01-06] MEDS: FLONASE NAS SCH (08:58)
[2023-01-06] MEDS: ELIQUIS PO SCH (08:58)
[2023-01-06] MEDS: LIDODERM PATCH 5% TP SCH (08:58)
[2023-01-06] MEDS: CARDIZEM PO SCH (08:59)
[2023-01-06] MEDS: VITAMIN D PO SCH (09:00)
[2023-01-06] MEDS: MACRODANTIN PO SCH (09:00)
[2023-01-06] MEDS: CLARITIN PO SCH (09:00)
[2023-01-06] MEDS: FERROUS SULFATE PO SCH (09:00)
[2023-01-06] MEDS: MAG-OX PO SCH (09:00)
--- NOTE | 2023-01-06 09:26 | PCM.PROG ---
Attending Provider: ATTENDING PROVIDER: Dr. BRYSON BOONE MD This patient is seen with Sharon Momin, Nurse Practitioner. DATE OF SERVICE: 01/06/23 SUBJECTIVE: This 87 year old /WHITE F was hospitalized 01/01/23. Eating moderately well. Labs are stable. Glucose has been stable, 137 this morning. Ready to be discharged. REVIEW OF SYSTEMS: CONSTITUTIONAL: No night sweats. No fatigue, malaise, lethargy. No fever or chills. Weakness. HEENT: Eyes: No visual changes. No eye pain. No eye discharge. ENT: No runny nose. No epistaxis. No sinus pain. No odynophagia. No congestion. RESPIRATORY: No cough, no congestion. No hemoptysis. No shortness of breath. CARDIOVASCULAR: No angina symptoms. No CHF symptoms. No atypical chest pain for CAD. No palpitations. No orthopnea.. GASTROINTESTINAL: No abdominal pain. No nausea or vomiting. No diarrhea or constipation. No hematemesis. No hematochezia. GENITOURINARY: No urgency. No frequency. No dysuria. No hematuria. No obstructive symptoms. No discharge. No pain. No significant abnormal bleeding. MUSCULOSKELETAL: No musculoskeletal pain; no joint swelling. NEUROLOGICAL: Awake, alert, intermittent confuson. No headache. No neck pain. No syncope. No seizures. No dizziness. PSYCHIATRIC: Not anxious. No depression. No suicidal thoughts. No homicidal thoughts. SKIN: No rash. No lesions. No wounds. ENDOCRINE: No unexplained weight loss. No weight gain. HEMATOLOGIC/LYMPHATIC: No anemia. No purpura. No petechiae. No prolonged or excessive bleeding. No palpable lymph nodes. PHYSICAL EXAMINATION: GENERAL: The patient is awake, alert and oriented, sitting in bed in no distress. VITAL SIGNS: Temperature 96.8 F, Pulse 91, Respiratory Rate 18, BP 150/68, Pulse Ox 95% HEENT: Head normocephalic, atraumatic. Eyes: Extraocular muscles are intact. Pupils are equal, round and reactive to light and accommodation. Ears: No lesions. Nose appeared normal. Throat: No exudate or erythema. NECK: Supple. No JVD, no carotid bruit. No lymphadenopathy or thyromegaly. LUNGS: Diminished breath sounds. Clear to auscultation. Percussion note normal. Chest symmetrical. HEART: Irregular heart rate. S1, S2, no S3. No murmurs. No cyanosis or clubbing. No ascites. Pulses: Dorsalis pedis and posterior tibial pulses +1 to +2 both sides. ABDOMEN: Soft. Non-tender. Bowel sounds active. No CVA tenderness. No mass felt. EXTREMITIES: No edema. Full range of motion of all extremities, equal. NEUROLOGIC: No focal deficit. Cranial nerves II through XII are grossly intact. No headache. No double vision. SKIN: Not dry. Intact. Turgor-normal. LYMPHATIC: No palpable lymph nodes/no lymphedema. MUSCULOSKELETAL: Normal joints with no swelling. Muscle tone is normal. LAB REVIEW: 01/06/23 04:50 01/06/23 04:50 01/06/23 04:50: WBC 9.38, RBC 3.49 L, Hgb 9.6 L, Hct 30.6 L, MCV 87.7, MCH 27.5, MCHC 31.4 L, RDW Coeff of [place] 18.4 H, Plt Count 584 H, Immature Gran % (Auto) 0.7, Neut % (Auto) 57.8, Lymph % (Auto) 18.8, [place] % (Auto) 10.6 H, Eos % (Auto) 11.6 H, Baso % (Auto) 0.5, Neut # (Auto) 5.4, Lymph # (Auto) 1.8, [place] # (Auto) 1.0, Eos # (Auto) 1.1 H, Baso # (Auto) 0.1, Immature Gran # (Auto) 0.1, Sodium 136.0, Potassium 4.03, Chloride 99.6, Carbon Dioxide 34.2 H, Anion Gap 6.23, BUN 16.7, Creatinine 0.84, Estimated GFR (MDRD) 64.00, BUN/Creatinine Ratio 19.88, Glucose 137.0 H, Calcium 9.15, Total Bilirubin 0.20, AST 63.0 H, ALT 105.8 H, Alkaline Phosphatase 181.8 H, Total Protein 6.77, Albumin 3.31 L, Globulin 3.46, Albumin/Globulin Ratio 0.95 ASSESSMENT: Please see below. 1. Diabetes mellitus type II, uncontrolled 2. Hypoglycemia 3. Atrial fibrillation 4. Chronic anemia 5. Elevated liver enzymes 6. Recurrent UTI PLAN: 1. Discharge back to [facility] 2. Will discharge on Lantus 15 units in the evening 3. She is receiving sliding scale TID with 5 units of glucose over 300 and 10 units for glucose over 500 4. She will continue daily Macrodantin 50mg indefinitely 5. We will repeat urine prior to discharge. Plan and coordination of the patient's care discussed in the presence of Body Piercer and nurse. SCRIBED BY: KARLA ALVAREZ Manager Night scribed while in presence of service performed by Sharon Momin APRN on 01/06/23 (08)
[2023-01-06 11:33] VITALS: RESP 16
[2023-01-06 12:10] LABS: BILIRUBIN,URINE Negative (NEGATIVE); CLARITY,URINE Cloudy (CLEAR); COLOR,URINE Yellow (YELLOW); GLUCOSE, URINE (UA) Trace (NEGATIVE); KETONES,URINE Negative (NEGATIVE); LEUKOCYTE ESTERASE ,URINE 1+ (NEGATIVE); NITRITE,URINE Negative (NEGATIVE); PROTEIN,URINE 2+ (NEGATIVE); URINE, BLOOD 2+ (NEGATIVE); UROBILINOGEN,URINE 0.2 (0.2)
[2023-01-06 12:20] LABS: BACTERIA,URINE 1+ (NOT PRESENT); TRANSITIONAL EPI CELLS,URINE 0-2 (NOT PRESENT); URINE WBC, MICROSCOPIC 30-50 (0-2)
[2023-01-06 12:22] LABS: HYALINE CASTS, URINE 0-2 (NOT PRESENT); MUCUS,URINE TRACE (NOT PRESENT)
--- NOTE | 2023-01-06 16:27 | HP ---
DATE OF SERVICE: 01/01/23 REASON FOR HOSPITALIZATION: Hypoglycemia HISTORY OF PRESENT ILLNESS: Patient is an 87 year old white female [facility] as she was noted to have hypoglycemia. I advised them to bring her to the emergency room where she was seen by ER attending and was noted to have hypoglycemia which was treated. Patient also had abnormal live enzymes. AST/ALT were more than 200, bilirubin was practically normal. Patient is unable to give any history. She is more or less kind of confused. Her daughter is in the room and according to her the patient's oral intake was poor the day prior and got a full dose of insulin 35 units. Hypoglycemia was treated in the [facility] and was sent to the emergency room. REVIEW OF SYSTEMS: CONSTITUTIONAL: Patient doesn't seem to be in any distress. No fever, no chills. HEENT: Eyes: No visual changes. No eye pain. No eye discharge. ENT: No runny nose. No epistaxis. No sinus pain. No sore throat. No odynophagia. No ear pain. No congestion. RESPIRATORY: No cough, no congestion. No hemoptysis. No shortness of breath. CARDIOVASCULAR: No angina symptoms. No CHF symptoms. No atypical chest pain for CAD. No palpitations. No PND. No orthopnea. GASTROINTESTINAL: No abdominal pain. No nausea or vomiting. No diarrhea or constipation. No hematemesis. No hematochezia. GENITOURINARY: No urgency. No frequency. No dysuria. No hematuria. No obstructive symptoms. No discharge. No pain. No significant abnormal bleeding. MUSCULOSKELETAL: No musculoskeletal pain. No joint swelling. No arthritis. NEUROLOGICAL: No headache. No neck pain. No syncope. No seizures. No dizziness. PSYCHIATRIC: Not anxious. No depression. No suicidal thoughts. No homicidal thoughts. SKIN: No rash. No lesions. No wounds. ENDOCRINE: No unexplained weight loss. No weight gain. HEMATOLOGIC/LYMPHATIC: No anemia. No purpura. No petechiae. No prolonged or excessive bleeding. No palpable lymph nodes. PERSONAL/FAMILY/SOCIAL HISTORY: Mother had heart disease. No alcohol abuse. She is cared by three granddaughters. ALLERGIES: STATIN, AZITHROMYCIN, SULFA, BACTRIM MEDICAL/SURGICAL PROBLEMS: Osteoarthritis Atrial fibrillation Diabetes mellitus Dyslipidemia Hypertension Episodes of hypoglycemia Hypothyroidism Incontinence SURGICAL HISTORY: Cataract extraction PHYSICAL EXAMINATION: GENERAL: The patient is confused, alert. History is taken from granddaughter who is present in the emergency room. VITAL SIGNS: HEENT: Head normocephalic, atraumatic. Eyes: Extraocular muscles are intact. Pupils are equal, round and reactive to light and accommodation. Ears: No lesions. Nose appeared normal. Throat: No exudate or erythema. NECK: Supple. No JVD, no carotid bruit. LUNGS: Decreased breath sounds but clear entry. HEART: S1, S2, no S3. ABDOMEN: Soft. EXTREMITIES: Trace edema. Pulses +2 bilaterally. NEUROLOGIC: No focal deficit. Cranial nerves II through XII are grossly intact. No headache, no double vision or headache. SKIN: Somewhat pale and dry. . LYMPHATIC: No palpable lymph nodes/no lymphedema. MUSCULOSKELETAL: Normal joints with no swelling. Muscle tone is normal. ASSESSMENT: 1. Hypoglycemia from insulin 2. Abnormal liver profile, no abdominal pain 3. Dementia 4. Diabetes mellitus 5. Atrial fib 6. Dyslipidemia 7. Generalized osteoarthritis PLAN: 1. Give dose of insulin 2. Monitor blood glucose 3. Monitor liver profile 4. Also do an hepatitis profile Code Status: DNR TIME SPENT: More than 75 minutes. MTDD
--- NOTE | 2023-01-06 16:31 | PN ---
DATE OF SERVICE: 01/04/23 SUBJECTIVE: Patient was seen and examined with the nurse practitioner. Patient's condition is stable. Blood sugar is acceptable. Cardiovascular status is stable. REVIEW OF SYSTEMS: CONSTITUTIONAL: No night sweats. No fatigue, malaise, lethargy. No fever or chills. HEENT: Eyes: No visual changes. No eye pain. No eye discharge. ENT: No runny nose. No epistaxis. No sinus pain. No sore throat. No odynophagia. No congestion. RESPIRATORY: No cough, no congestion. No hemoptysis. No shortness of breath. CARDIOVASCULAR: No angina symptoms. No CHF symptoms. No atypical chest pain for CAD. No palpitations. No PND. No orthopnea. GASTROINTESTINAL: No abdominal pain. No nausea or vomiting. No diarrhea or constipation. No hematemesis. No hematochezia. GENITOURINARY: No urgency. No frequency. No dysuria. No hematuria. No obstructive symptoms. No discharge. No pain. No significant abnormal bleeding. MUSCULOSKELETAL: No musculoskeletal pain; no joint swelling. NEUROLOGICAL: No headache. No neck pain. No syncope. No seizures. No dizziness. PSYCHIATRIC: Not anxious. No depression. No suicidal thoughts. No homicidal thoughts. SKIN: No rash. No lesions. No wounds. ENDOCRINE: No unexplained weight loss. No weight gain. HEMATOLOGIC/LYMPHATIC: No anemia. No purpura. No petechiae. No prolonged or excessive bleeding. No palpable lymph nodes. PHYSICAL EXAMINATION: GENERAL: The patient is in no distress. HEENT: Head normocephalic, atraumatic. Eyes: Extraocular muscles are intact. Pupils are equal, round and reactive to light and accommodation. Ears: No lesions. Nose appeared normal. Throat: No exudate or erythema. NECK: Supple. No JVD, no carotid bruit. No lymphadenopathy or thyromegaly. LUNGS: Clear to auscultation. Percussion note normal. Chest symmetrical. HEART: S1, S2, no S3. No murmurs. No cyanosis or clubbing. No ascites. Pulses: Dorsalis pedis and posterior tibial pulses +1 to +2 bilaterally. ABDOMEN: Soft. Nontender. Bowel sounds active. No CVA tenderness. No mass felt. EXTREMITIES: No edema. Full range of motion of all extremities, equal. NEUROLOGIC: No focal deficit. Cranial nerves II through XII are grossly intact. No headache. No double vision. SKIN: Not dry. Intact. Turgor - normal. LYMPHATIC: No palpable lymph nodes/no lymphedema. MUSCULOSKELETAL: Normal joints with no swelling. Muscle tone is normal. TIME SPENT: More than 35 minutes. Plan and coordination of the patient's care discussed in the presence of nurse. DENG
--- NOTE | 2023-01-06 16:38 | PN ---
DATE OF SERVICE: 01/05/23 SUBJECTIVE: 87 year old white female hospitalized with hypoglycemia and insulin reaction. Patient had it twice while she was in the hospital. Patient's dose has been reduced to 15. The patient's blood sugar was more than 500 and given 10 units of regular insulin and the sugar went down to 250. REVIEW OF SYSTEMS: CONSTITUTIONAL: No night sweats. No fatigue, malaise, lethargy. No fever or chills. HEENT: Eyes: No visual changes. No eye pain. No eye discharge. ENT: No runny nose. No epistaxis. No sinus pain. No sore throat. No odynophagia. No congestion. RESPIRATORY: No cough, no congestion. No hemoptysis. No shortness of breath. CARDIOVASCULAR: No chest pain. No palpitations. No PND. No orthopnea. GASTROINTESTINAL: No abdominal pain. No nausea or vomiting. No diarrhea or constipation. No hematemesis. No hematochezia. GENITOURINARY: No urgency. No frequency. No dysuria. No hematuria. No obstructive symptoms. No discharge. No pain. No significant abnormal bleeding. MUSCULOSKELETAL: No musculoskeletal pain; no joint swelling. NEUROLOGICAL: No headache. No neck pain. No syncope. No seizures. No dizziness. PSYCHIATRIC: Not anxious. No depression. No suicidal thoughts. No homicidal thoughts. SKIN: No rash. No lesions. No wounds. ENDOCRINE: No unexplained weight loss. No weight gain. HEMATOLOGIC/LYMPHATIC: No anemia. No purpura. No petechiae. No prolonged or excessive bleeding. No palpable lymph nodes. PHYSICAL EXAMINATION: GENERAL: The patient is oriented to time, place and person. VITAL SIGNS: Temperature 97.8, pulse 86, respiratory rate 18, blood pressure 117/75, pulse ox 95% HEENT: Head normocephalic, atraumatic. Eyes: Extraocular muscles are intact. Pupils are equal, round and reactive to light and accommodation. Ears: No lesions. Nose appeared normal. Throat: No exudate or erythema. NECK: Supple. LUNGS: Decreased breath sounds but clear. HEART: S1, S2, no S3. No murmurs. No cyanosis or clubbing. No ascites. Pulses: Dorsalis pedis and posterior tibial pulses +1 to +2 bilaterally. ABDOMEN: Soft. Bowel sounds active. EXTREMITIES: No edema. Full range of motion of all extremities, equal. NEUROLOGIC: No focal deficit. Cranial nerves II through XII are grossly intact. No headache. No double vision. SKIN: Not dry. Intact. Turgor - normal. LYMPHATIC: No palpable lymph nodes/no lymphedema. MUSCULOSKELETAL: Normal joints with no swelling. Muscle tone is normal. LABS: Hemoglobin 8.8, hematocrit 28, WBC 6,800, normal differential, creatinine 0.8, BUN 20, potassium 4.5. ASSESSMENT: 1. Hypoglycemia seems to be under control. 2. Liver enzymes seems to be better. ALT/AST down to 122 and 82 respectively. Liver enzyme abnormality could be from viral syndrome. Patient seems to be improving. She is alert today. One of the granddaughters are in the room. TIME SPENT: More than 35 minutes. Plan and coordination of the patient's care discussed in the presence of nurse. DENG
--- NOTE | 2023-01-07 14:47 | PN ---
DATE OF SERVICE: 01/06/23 SUBJECTIVE: Patient was seen and examined this morning with the nurse practitioner. Patient's condition is stable. Her blood sugar levels are acceptable. She will be discharged to the long-term. She is eating better. Her insulin has been reduced and instructions given. REVIEW OF SYSTEMS: CONSTITUTIONAL: No night sweats. No fatigue, malaise, lethargy. No fever or chills. HEENT: Eyes: No visual changes. No eye pain. No eye discharge. ENT: No runny nose. No epistaxis. No sinus pain. No sore throat. No odynophagia. No congestion. RESPIRATORY: No cough, no congestion. No hemoptysis. No shortness of breath. CARDIOVASCULAR: No angina symptoms. No CHF symptoms. No atypical chest pain for CAD. No palpitations. No PND. No orthopnea. GASTROINTESTINAL: No abdominal pain. No nausea or vomiting. No diarrhea or constipation. No hematemesis. No hematochezia. GENITOURINARY: No urgency. No frequency. No dysuria. No hematuria. No obstructive symptoms. No discharge. No pain. No significant abnormal bleeding. MUSCULOSKELETAL: No musculoskeletal pain; no joint swelling. NEUROLOGICAL: No headache. No neck pain. No syncope. No seizures. No dizziness. PSYCHIATRIC: Not anxious. No depression. No suicidal thoughts. No homicidal thoughts. SKIN: No rash. No lesions. No wounds. ENDOCRINE: No unexplained weight loss. No weight gain. HEMATOLOGIC/LYMPHATIC: No anemia. No purpura. No petechiae. No prolonged or excessive bleeding. No palpable lymph nodes. PHYSICAL EXAMINATION: GENERAL: The patient is in no distress. HEENT: Head normocephalic, atraumatic. Eyes: Extraocular muscles are intact. Pupils are equal, round and reactive to light and accommodation. Ears: No lesions. Nose appeared normal. Throat: No exudate or erythema. NECK: Supple. No JVD, no carotid bruit. No lymphadenopathy or thyromegaly. LUNGS: Clear to auscultation. Percussion note normal. Chest symmetrical. HEART: S1, S2, no S3. No murmurs. No cyanosis or clubbing. No ascites. Pulses: Dorsalis pedis and posterior tibial pulses +1 to +2 bilaterally. ABDOMEN: Soft. Nontender. Bowel sounds active. No CVA tenderness. No mass felt. EXTREMITIES: No edema. Full range of motion of all extremities, equal. NEUROLOGIC: No focal deficit. Cranial nerves II through XII are grossly intact. No headache. No double vision. SKIN: Not dry. Intact. Turgor - normal. LYMPHATIC: No palpable lymph nodes/no lymphedema. MUSCULOSKELETAL: Normal joints with no swelling. Muscle tone is normal. TIME SPENT: More than 35 minutes. Plan and coordination of the patient's care discussed in the presence of nurse. DENG
--- NOTE | 2023-01-07 14:49 | PN ---
01/01/23 LEVEL 5 01/02/23 THRU 01/05/23 INTERMEDIATE 01/06/23 DISCHARGE MTDD
== END 2023-01-06 13:50 | DRG 639 ==
LOC: ED 08:10 → MEDSURG B 11:22
PROVIDERS: ADMIT Internal Medicine; ATTEND Internal Medicine
DX: F03.90 Unspecified dementia, unspecified severity, without behavioral disturbance, psychotic disturbance, mood disturbance, and anxiety; T38.3X5A Adverse effect of insulin and oral hypoglycemic [antidiabetic] drugs, initial encounter; E11.649 Type 2 diabetes mellitus with hypoglycemia without coma; M19.90 Unspecified osteoarthritis, unspecified site; E78.5 Hyperlipidemia, unspecified; Z79.4 Long term (current) use of insulin; Z66 Do not resuscitate; Z51.81 Encounter for therapeutic drug level monitoring; D64.9 Anemia, unspecified; I48.91 Unspecified atrial fibrillation; Z68.35 Body mass index [BMI] 35.0-35.9, adult; Z87.440 Personal history of urinary (tract) infections; Z79.899 Other long term (current) drug therapy; Z79.01 Long term (current) use of anticoagulants; E66.9 Obesity, unspecified

== ENCOUNTER 2023-01-25 07:24 | Inpatient (IN) ==
[2023-01-25] MEDS ORDERED: SODIUM CHLORIDE 1,000 ML IV STA (07:27)
[2023-01-25] MEDS ORDERED: DEXTROSE 50%-WATER ABBOJECT IVP STA (07:30)
[2023-01-25 07:48] LABS: BASOPHILS % (AUTO) 0.2 % (0.0-3.0); EOSINOPHILS % (AUTO) 0.1 % (0.0-7.0); HEMATOCRIT 33.2 % (37.0-47.0); HEMOGLOBIN 10.4 g/dl (12.0-16.0); IMMATURE GRANULOCYTE % (AUTO) 0.1 % (0.0-5.0); LYMPHOCYTES # (AUTO) 0.6 K/uL (0.60-3.4); MEAN CORPUSCULAR HEMOGLOBIN 28.4 pg (27.0-31.0); MEAN CORPUSCULAR HGB CONC 31.3 (31.8-35.4); MEAN CORPUSCULAR VOLUME 90.7 fl (81.0-99.0); MONOCYTES # (AUTO) 0.2 K/uL (0.4-2.0); MONOCYTES % (AUTO) 2.6 (0-10); NEUTROPHILS # (AUTO) 7.3 K/ul (2.0-6.9); PLATELET COUNT 251 10^3/uL (140-440); RDW COEFFICIENT OF VARIATION 19.8 % (11.6-14.8); RED BLOOD COUNT 3.66 10^6/ul (4.20-5.40)
[2023-01-25 07:58] LABS: ALANINE AMINOTRANSFERASE 34.7 U/L (0-35); ALBUMIN 3.21 g/dL (3.5-5.0); ALKALINE PHOSPHATASE 64.8 U/L (53-141); ASPARTATE AMINO TRANSFERASE 49.9 U/L (14-36); BILIRUBIN,TOTAL 0.33 mg/dL (0.2-1.3); BLOOD UREA NITROGEN 33.8 mg/dL (7-17); CALCIUM 8.94 mg/dL (8.4-10.2); CARBON DIOXIDE 31.6 mmol/L (22-30.0); CHLORIDE 102.8 mmol/L (98-107); CREATININE 0.95 mg/dL (0.60-1.30); MAGNESIUM 1.81 mg/dL (1.6-2.3); POTASSIUM 3.94 mmol/L (3.5-5.1); SODIUM 137.6 mmol/L (134.5-145); TOTAL PROTEIN 6.3 g/dL (6.3-8.2)
[2023-01-25 08:10] LABS: TROPONIN I 0.014 ng/ml (0.0000-0.120)
--- NOTE | 2023-01-25 08:11 | DI ---
EXAM: CHEST RADIOGRAPH (1 VIEW) TECHNIQUE: Frontal Chest Radiograph. HISTORY: Altered mental status COMPARISON: 01/01/2023. FINDINGS: Lines, Tubes, Devices: None Lungs and Pleura: Blunting of the left costophrenic sulcus, similar to the previous study. Coarse, prominent interstitial markings. Hazy densities in both lungs. The lung apices are partially obscure d. Cardiac silhouette: Stable. Bones: No acute abnormality. IMPRESSION: Blunting of the left costophrenic sulcus, similar to the previous study. There may be a small left p leural effusion. Coarse, prominent interstitial markings and scattered hazy densities in both lungs. Correlate for pn eumonitis and / or interstitial edema. Please see above description and limitations.
--- NOTE | 2023-01-25 08:16 | CT ---
EXAM: CT HEAD WITHOUT CONTRAST HISTORY: Altered mental status COMPARISON: None TECHNIQUE: Serial axial images of the brain were obtained from the skull base to the vertex without IV contrast. FINDINGS: Please note, some of the images are degraded by motion, despite repeat scan. No acute intracranial hemorrhage. No hydrocephalus. No midline shift. Parenchymal volume loss. Chronic microangiopathy. The calvarium is intact. IMPRESSION: Limited as above. As seen, no acute intracranial abnormality. All CT scans are performed using dose optimization techniques as appropriate to the performed exam an d include at least one of the following: Automated exposure control, adjustment of the mA and/or kV according t o size, and the use of iterative reconstruction technique.
--- NOTE | 2023-01-25 08:30 | ED.PDOC ---
General ED Provider: Dr. GIA FELDER MD Chief Complaint: Hypoglycemia Stated Complaint: altered mental state Time Seen by Provider: 01/25/23 07:26 Information Source: [facility] Exam Limitations: Altered mental status Primary Care Provider: BRYSON BOONE MD Nursing and Triage Documentation Reviewed and Agree: Yes Does patient meet sepsis criteria?: No System Inflammatory Response Syndrome: Acutely Altered Mental Status Sepsis Protocol: For patient's 13 years and over: Temp is 96.8 and below OR 101 and greater Pulse >90 BPM Resp >20/minute Acutely Altered Mental Status Are patient's symptoms suggestive of a new infection, such as: -Pneumonia -Skin, Soft Tissue -Endocarditis -UTI -Bone, Joint Infection -Implantable Device -Acute Abdominal Infection -Wound Infection -Meningitis -Blood Stream Catheter Infection -Unknown Neurological Complaint Exam Altered Mental Status Complaint/Exam Current Mental Status: Unresponsiveness Last Known Well: unknown (evening of Tuesday01/24/2023) Symptoms Are: Still present Review of Systems Review Of Systems Constitutional: Reports Other All Other Systems: Other [facility] Medical History Arthritis M19.90 - Unspecified osteoarthritis, unspecified site (ICD-10) Atrial fibrillation I48.91 - Unspecified atrial fibrillation (ICD-10) Bone fracture T14.8XXA - Other injury of unspecified body region, initial encounter (ICD- 10) Cataract H26.9 - Unspecified cataract (ICD-10) Diabetes mellitus E11.9 - Type 2 diabetes mellitus without complications (ICD-10) Dyslipidemia E78.5 - Hyperlipidemia, unspecified (ICD-10) Hypertension I10 - Essential (primary) hypertension (ICD-10) Hypoglycemia E16.2 - Hypoglycemia, unspecified (ICD-10) Measles B05.9 - Measles without complication (ICD-10) Mumps B26.9 - Mumps without complication (ICD-10) Thyroid dysfunction E07.9 - Disorder of thyroid, unspecified (ICD-10) Type 2 diabetes mellitus with hyperglycemia E11.65 - Type 2 diabetes mellitus with hyperglycemia (ICD-10) Urinary incontinence R32 - Unspecified urinary incontinence (ICD-10) Varicella B01.9 - Varicella without complication (ICD-10) Family History Mother No problems noted. FATHER No problems noted. SISTER No problems noted. SISTER No problems noted. BROTHER No problems noted. Social History Smoking and tobacco status: Never smoker Alcohol intake: never Counseling given: No Counseling provided: none Substance use type: does not use Counseling given: No Counseling provided: none Lives independently: Yes Do you think of yourself as: straight/heterosexual Current gender identity: female Seatbelt use: always Surgical History Cataract extraction and insertion of intraocular lens History of dental surgery Z92.89 - Personal history of other medical treatment (ICD-10) History of orthopedic surgery Z98.890 - Other specified postprocedural states (ICD-10) Female Reproductive History Menstrual Hx Hysterectomy: No Hx Tubal Ligation: No Physical Exam Physical Exam Appearance: Reports Ill-appearing Ill-appearing: Moderate Pain Distress: None Eyes: Reports JAY ENT: Reports Ears normal, Nose normal and Oropharynx normal; Denies Rhinorrhea, Epistaxis or Erythema Neck: Supple Respiratory: Reports Airway patent, Breath sounds equal and Respirations nonlabored; Denies Crackles, Rhonchi, Wheezes or Retractions Cardiovascular: Reports Pulses normal and Irregular rhythm GI/: Reports Soft and Bowel sounds normal Musculoskeletal: Denies Edema Skin: Reports Warm, Dry and Normal color; Denies Diaphoretic Neurological: Reports Unresponsive Psychiatric: Reports Other Interpretation EKG Interpretation EKG Interpretation By: ED Physician Time of EKG #1: 08:10 Rate: Normal Rhythm: Other (atrial fibrillation) Ectopy: None [place]: NL ST Segment: Other (non specific ST changes in leads I, V4, V5, V6) Interpretation: non specific ECG changes EKG Interpretation By: ED Physician Radiology Interpretation Radiology Interpretation By: Radiologist Radiology Results: No acute changes Exam Interpreted: CXR and CT Scan Critical Care Note Critical Care Note Total Critical Care Time (mins): 30 Course Course 01/25/23 07:41 01/25/23 07:41 Orders, Labs, Meds: Lab Review 01/25/23 07:41 WBC 8.10 RBC 3.66 L Hgb 10.4 L Hct 33.2 L MCV 90.7 MCH 28.4 MCHC 31.3 L RDW Coeff of Tavares 19.8 H Plt Count 251 Immature Gran % (Auto) 0.1 Neut % (Auto) 90.0 H Lymph % (Auto) 7.0 L Moffat % (Auto) 2.6 Eos % (Auto) 0.1 Baso % (Auto) 0.2 Neut # (Auto) 7.3 H Lymph # (Auto) 0.6 Moffat # (Auto) 0.2 L Eos # (Auto) 0.0 Baso # (Auto) 0.0 Immature Gran # (Auto) 0.0 PT 11.0 INR 1.06 APTT 28.0 Sodium 137.6 Potassium 3.94 Chloride 102.8 Carbon Dioxide 31.6 H Anion Gap 7.14 BUN 33.8 H Creatinine 0.95 Estimated GFR (MDRD) 56.00 BUN/Creatinine Ratio 35.57 Glucose 214.0 H Hemoglobin A1c 7.59 H Lactic Acid 1.82 Calcium 8.94 Magnesium 1.81 Total Bilirubin 0.33 AST 49.9 H ALT 34.7 Alkaline Phosphatase 64.8 Troponin I 0.014 Total Protein 6.30 Albumin 3.21 L Globulin 3.09 Albumin/Globulin Ratio 1.03 Orders Category Date Time Status EKG-(ED ONLY) Stat CARDIO 01/25/23 07:27 Completed CBC W/ AUTO DIFF Stat LAB 01/25/23 07:41 Completed CMP [COMPREHENSIVE METABOLIC PANEL] Stat LAB 01/25/23 07:41 Completed HEMOGLOBIN A1C Stat LAB 01/25/23 07:41 Completed LACTIC ACID Stat LAB 01/25/23 07:41 Completed MAGNESIUM Stat LAB 01/25/23 07:41 Completed PT WITH INR Stat LAB 01/25/23 07:41 Completed PTT [PARTIAL THROMBOPLASTIN TIME] Stat LAB 01/25/23 07:41 Completed TROPONIN I Stat LAB 01/25/23 07:41 Completed Ceftriaxone/D5w 1 gm Premix [Rocephin 1 gm/50 ml D5w] Meds 01/25/23 08:32 Discontinued 1 gm in 50 ml IV ONCE Dextrose 50 % in Water [Dextrose 50%-Water Abboject] Meds 01/25/23 07:30 Discontinued 50 ml IVP ONCE STA Ipratropium/Albuterol Neb [Duoneb] Meds 01/25/23 11:05 Discontinued 3 ml NEB ONCE ONE Sodium Chloride 0.9% [Sodium Chloride] 1,000 ml Meds 01/25/23 07:[address] HEAD W/O CONTRAST Stat RADS 01/25/23 07:27 Completed CXR [CHEST, 1V AP ONLY] Stat RADS 01/25/23 07:27 Completed Medications Generic Name Dose Route Start Last Admin Trade Name Pepe PRN Reason Stop Dose Admin Acetaminophen 650 mg 01/25/23 11:28 Acetaminophen 325 Mg Tablet PO Q4H PRN Mild Pain Dextrose 50 ml 01/25/23 11:28 Dextrose 50 % In Water 50 Ml Disp.Syrin IVP ONCE PRN Unconscious Hypoglycemia Protocol CEFTRIAXONE/D5W 1 GM PREMIX 1 gm in 50 mls @ 75 mls/hr 01/26/23 09:00 Rocephin 1 Gm/50 Ml D5w IV 01/29/23 08:59 DAILY ADOLFO Dextrose/Sodium Chloride 1,000 mls @ 100 mls/hr 01/25/23 12:00 01/25/23 12:34 Dextrose 5%-Ns Iv Solution IV 100 mls/hr .Q10H ADOLFO Administration Ketorolac Tromethamine 15 mg 01/25/23 14:08 Ketorolac Tromethamine 15 Mg/Ml Vial IVP 01/29/23 14:09 Q6HR PRN Pain Scopolamine HBr 1 patch 01/25/23 12:30 01/25/23 13:03 Scopolamine Hydrobromide 1.5 Mg Patch.Td72 TD 1 patch Q72HR ADOLFO Administration Discontinued Medications Generic Name Dose Route Start Last Admin Trade Name Pepe PRN Reason Stop Dose Admin Albuterol/Ipratropium 3 ml 01/25/23 11:05 01/25/23 11:16 Ipratropium/Albuterol Vial.Neb NEB 01/25/23 11:06 3 ml ONCE ONE Administration Dextrose 50 ml 01/25/23 07:30 01/25/23 07:36 Dextrose 50 % In Water 50 Ml Disp.Syrin IVP 01/25/23 07:31 50 ml ONCE STA Administration Sodium Chloride 1,000 mls @ 1,000 mls/hr 01/25/23 07:27 01/25/23 08:17 Sodium Chloride IV 01/25/23 08:26 1,000 mls/hr BOLUS STA Administration CEFTRIAXONE/D5W 1 GM PREMIX 1 gm in 50 mls @ 75 mls/hr 01/25/23 08:32 01/25/23 08:55 Rocephin 1 Gm/50 Ml D5w IV 01/25/23 09:11 75 mls/hr ONCE ONE Administration Vital Signs: Temp Pulse Resp BP Pulse Ox 01/25/23 08:45 95 17 102/85 92 L 01/25/23 08:30 93 18 92/61 92 L 01/25/23 08:15 94 18 99/44 L 92 L 01/25/23 08:00 94 17 105/68 90 L 01/25/23 09:11 90 16 109/87 97 01/25/23 07:47 98.0 F 93 18 133/100 H 91 L Discharge Plan Discharge Patient Disposition: ADMITTED INPATIENT Discharge Problem: Hypoglycemia, Type 2 diabetes mellitus with hemoglobin A1c goal of 7.0%-8.0%, Altered mental status, History of atrial fibrillation, Urinary tract infection Did you review [place] [employer] for ALL controlled substances?: Not Applicable ED Provider: GIA FELDER Condition: Poor Physician Progress Note: []
[2023-01-25] MEDS ORDERED: ROCEPHIN 1 GM/50 ML D5W 1 GM/50 ML BAG IV ONE (08:32)
[2023-01-25] MEDS ORDERED: DUONEB NEB ONE (11:05)
[2023-01-25] MEDS ORDERED: TYLENOL PO PRN (11:28)
[2023-01-25] MEDS ORDERED: DEXTROSE 50%-WATER ABBOJECT IVP PRN (11:28)
--- NOTE | 2023-01-25 11:58 | PCM ---
Date of Service Date Seen by Provider: 01/25/23 Time Seen by Provider: 12:15 Admit Day/Time Admission Date: 01/25/23 Admission Time: 12:00 Reason for Admission Chief Complaint: UTI ALTERED, HYPOGLYCEMIA Hospital Provider Hospital Provider: MERLE WYNN, [facility] [place] Primary Care Physician Primary Care Physician: BRYSON PHAN MD History of Present Illness History of Present Illness: 87 yo female presented to the ER by EMS from local nursing facility. [facility] called EMS due to inability to arouse patient and was "foaming at the mouth". EMS found patient's blood sugar to be in the 40s. She was given glucagon and blood glucose improved to 70s. In ER she was given an amp of D50 and blood sugar increased to 200s. Patient's mental status did not change. Urinalysis was obtained that showed UTI. CT of head was negative. Granddaughter, Celina HUGHES, spoke with ER doctor extensively and did not want patient transferred if possible. She reports she visited with patient and other family yesterday and was at her baseline. Over the last few months, granddaughter states patient has had episodes of dysphasia. Reports since June she has been on antibiotics intermittently for UTI and takes macrobid for prophylaxis. When UTI occurs, mental status declines routinely. Due to mental status, patient unable to provide HPI. Case Discussed With Case Discussed With: Patient's case was discussed with the ER Physicians, Dr. Shepard. [facility] Medical History Arthritis M19.90 - Unspecified osteoarthritis, unspecified site (ICD-10) Atrial fibrillation I48.91 - Unspecified atrial fibrillation (ICD-10) Bone fracture T14.8XXA - Other injury of unspecified body region, initial encounter (ICD- 10) Cataract H26.9 - Unspecified cataract (ICD-10) Diabetes mellitus E11.9 - Type 2 diabetes mellitus without complications (ICD-10) Dyslipidemia E78.5 - Hyperlipidemia, unspecified (ICD-10) Hypertension I10 - Essential (primary) hypertension (ICD-10) Hypoglycemia E16.2 - Hypoglycemia, unspecified (ICD-10) Measles B05.9 - Measles without complication (ICD-10) Mumps B26.9 - Mumps without complication (ICD-10) Thyroid dysfunction E07.9 - Disorder of thyroid, unspecified (ICD-10) Type 2 diabetes mellitus with hyperglycemia E11.65 - Type 2 diabetes mellitus with hyperglycemia (ICD-10) Urinary incontinence R32 - Unspecified urinary incontinence (ICD-10) Varicella B01.9 - Varicella without complication (ICD-10) Surgical History Cataract extraction and insertion of intraocular lens History of dental surgery Z92.89 - Personal history of other medical treatment (ICD-10) History of orthopedic surgery Z98.890 - Other specified postprocedural states (ICD-10) Family History Mother No problems noted. FATHER No problems noted. SISTER No problems noted. SISTER No problems noted. BROTHER No problems noted. Social History Smoking and tobacco status: Never smoker Alcohol intake: never Counseling given: No Counseling provided: none Substance use type: does not use Counseling given: No Counseling provided: none Lives independently: Yes Do you think of yourself as: straight/heterosexual Current gender identity: female Seatbelt use: always Allergies Allergies Allergy/AdvReac Type Severity Reaction Status Date / Time [id number]-[id number]-[id number] Reductase AdvReac Unknown unknown Verified 01/01/23 08:31 Inhibitor azithromycin [From Zithromax] AdvReac rash Verified 01/01/23 08:31 sulfamethoxazole AdvReac rash Verified 01/01/23 08:31 [From Bactrim] trimethoprim [From Bactrim] AdvReac rash Verified 01/01/23 08:31 Current Medications Home Medications cholecalciferol (vitamin D3) 25 mcg (1,000 unit) capsule (Vitamin D3) 1,000 unit PO DAILY 03/28/15 [History Confirmed 01/25/23 Last Taken 08/04/16 07:00] omega-3 fatty acids-fish oil 340 mg-1,000 mg capsule (Fish Oil) 2 ea PO BEDTIME 03/28/15 [History Confirmed 01/25/23 Last Taken 07/27/15] insulin syringe-needle U-100 0.5 mL 31 gauge x 5/16" (BD Insulin Syringe Ultra- Fine) See Rx Instructions .Route .COMPLEX ##100 05/05/20 [Rx Confirmed 01/25/23 Last Taken Unknown] fluticasone propionate 50 mcg/actuation nasal spray,suspension 1 spray intranasal QDAY #48 grams 06/04/21 [Rx Confirmed 01/25/23 Last Taken Unknown] loratadine 10 mg tablet (Allergy Relief (loratadine)) 10 mg PO QDAY 11/23/21 [History Confirmed 01/25/23 Last Taken Unknown] lidocaine 5 % topical patch 1 patch topical QDAY #1 ea 01/14/22 [Rx Confirmed 01/25/23 Last Taken Unknown] diclofenac sodium 1 % topical gel 100 g topical BID ##1 04/14/22 [Rx Confirmed 01/25/23 Last Taken Unknown] magnesium oxide 400 mg (241.3 mg magnesium) tablet See Rx Instructions .Route .COMPLEX #60 tabs 08/24/22 [Rx Confirmed 01/25/23 Last Taken Unknown] apixaban 5 mg tablet (Eliquis) See Rx Instructions .Route .COMPLEX #60 tabs 08/25/22 [Rx Confirmed 01/25/23 Last Taken Unknown] diltiazem HCl 60 mg tablet See Rx Instructions .Route .COMPLEX #60 tabs 09/22/22 [Rx Confirmed 01/25/23 Last Taken Unknown] nystatin 100,000 unit/gram topical cream 1 applic topical QID PRN rash #30 grams 10/11/22 [Rx Confirmed 01/25/23 Last Taken Unknown] pantoprazole 40 mg tablet,delayed release 40 mg PO QDAY #30 tabs 11/16/22 [Rx Confirmed 01/25/23 Last Taken Unknown] polyethylene glycol 3350 17 gram/dose oral powder (Miralax) 17 g PO QDAY PRN constipation #850 grams 11/16/22 [Rx Confirmed 01/25/23 Last Taken Unknown] potassium chloride 10 mEq tablet,extended release (Klor-Con) 10 meq PO QDAY PRN if taking lasix #30 tabs 12/06/22 [Rx Confirmed 01/25/23 Last Taken Unknown] albuterol sulfate 2.5 mg/3 mL (0.083 %) solution for nebulization 2.5 mg inhalation Q6HR 01/01/23 [History Confirmed 01/25/23 Last Taken Unknown] ferrous sulfate 325 mg (65 mg iron) tablet,delayed release 325 mg PO BID 01/01/23 [History Confirmed 01/25/23 Last Taken Unknown] quetiapine 25 mg tablet 25 mg PO BEDTIME hallucinations and insomnia 01/01/23 [History Confirmed 01/25/23 Last Taken Unknown] insulin aspart U-100 100 unit/mL subcutaneous solution 1 sliding scale dose subcut DIRECTED PRN hyperglycemia #10 mL 01/06/23 [Rx Confirmed 01/25/23 Last Taken Unknown] insulin degludec 100 unit/mL subcutaneous solution (Tresiba U-100 Insulin) 15 unit (0.15 mL) subcut BEDTIME #10 mL 01/06/23 [Rx Confirmed 01/25/23 Last Taken Unknown] nitrofurantoin macrocrystal 50 mg capsule 50 mg PO DAILY #30 caps 01/06/23 [Rx Confirmed 01/25/23 Last Taken Unknown] Home Acetaminophen (Acetaminophen 325 Mg Tablet) 650 mg PO Q4H PRN PRN Reason: Mild Pain Dextrose (Dextrose 50 % In Water 50 Ml Disp.Syrin) 50 ml IVP ONCE PRN; Protocol PRN Reason: Unconscious Hypoglycemia CEFTRIAXONE/D5W 1 GM PREMIX (Rocephin 1 Gm/50 Ml D5w) 1 gm in 50 mls @ 75 mls/hr IV DAILY ADOLFO Stop: 01/29/23 08:59 Dextrose/Sodium Chloride (Dextrose 5%-Ns Iv Solution) 1,000 mls @ 100 mls/hr IV .Q10H [facility] Last Admin: 01/25/23 12:34 Dose: 100 mls/hr Scopolamine HBr (Scopolamine Hydrobromide 1.5 Mg Patch.Td72) 1 patch TD Q72HR [facility] Discontinued Medications Albuterol/Ipratropium (Ipratropium/Albuterol Vial.Neb) 3 ml NEB ONCE ONE Stop: 01/25/23 11:06 Last Admin: 01/25/23 11:16 Dose: 3 ml Dextrose (Dextrose 50 % In Water 50 Ml Disp.Syrin) 50 ml IVP ONCE STA Stop: 01/25/23 07:31 Last Admin: 01/25/23 07:36 Dose: 50 ml Sodium Chloride (Sodium Chloride) 1,000 mls @ 1,000 mls/hr IV BOLUS STA Stop: 01/25/23 08:26 Last Admin: 01/25/23 08:17 Dose: 1,000 mls/hr CEFTRIAXONE/D5W 1 GM PREMIX (Rocephin 1 Gm/50 Ml D5w) 1 gm in 50 mls @ 75 mls/hr IV ONCE ONE Stop: 01/25/23 09:11 Last Admin: 01/25/23 08:55 Dose: 75 mls/hr Review of Systems Constitutional: Denies No symptoms, Fever, Fatigue, Recent Weight Loss, Recent Weight Gain, Chills, Weakness, Sweats, Loss of appetite or Other Head: Denies Normocephalic, Atraumatic or Other Eyes: Denies No symptoms, Blurred vision, Double-vision, Vision Changes, Loss of Vision, Discharge, Itching, Pain, Redness, Photophobia or Other Ears: Denies No symptoms, Pain, Bleeding, Drainage, Ringing, Hearing loss or Other Nose: Denies No symptoms, Bleeding, Post Nasal Drip, Congestion, Discharge or Other Mouth: Denies No symptoms, Sores, Bleeding, Pain, Swelling or Other Throat: Denies No symptoms, Sore Throat, Difficulty Swallowing, Pain, Swelling, Voice change or Other Cardiovascular: Denies No symptoms, Chest pain, Chest Pressure, Irregular Heartbeat, Heart Murmur, High Blood Pressure, Claudication Pain, Varicose Veins, Left arm pain, Diaphoresis, PND, Orthopnea, Edema, Palpitations, Syncope or Other Respiratory: Denies No symptoms, Cough, Shortness of air, Hemoptysis, Night Sweats, Wake Coughing at Night, Wake Choking at Night, Wheeze, Pain with breathing or Other Gastrointestinal: Denies No symptoms, Nausea, Vomiting, Diarrhea, Hematemesis, Hematochezia, Constipation, Vomit Coffee Ground Material, Heartburn, Reflux, Black Tarry Stools, Hemorrhoids, Abdominal pain, Melena, Dysphagia or Other Genitourinary: Denies No Symptoms, Dysuria, Frequency, Nocturia, Incontinent Bowel, Incontinent Bladder, Hematuria, Incontinence, Flank Pain, Vaginal Discharge, Abnormal Bleeding, Pelvic Pain or Other Musculoskeletal: Denies No symptoms, Joint Stiffness, Muscle Pain, Neck Pain, Back Pain, Swelling in joints or Other Dermatologic: Denies Rashes, Skin Changes or Other Endocrine: Denies No symptoms, Cold intolerance, Heat intolerance, Excessive thirst, Flushing, Fingernail Changes, Hair Changes, Weight changes, Excessive hunger, Polyuria or Other Hematology: Denies No symptoms, Easy bleeding, Anemia, Clotting Disorders, Easy bruising, Swollen glands or Other Immunology: Denies No symptoms, Skin Sensitivity, Latex Allergy, Latex Sensitivity, Hives, Itching, Frequent infections, Difficulty healing or Other Neurological: Denies No symptoms, Headache, Dizziness, Syncope, Loss of Conciousness, Memory Loss, Seizure, Numbness, Weakness, Speech difficulty, Problems with walking, Tremor, Fainting or Other Psychiatric: Denies No symptoms, Depression, Anxiety, Sleeplessness, Hopelessness, Suicidal, Hallucinations or Other Physical examination Most Recent Vital Signs: Most Recent Vital Signs Temperature 98.0 F 01/25/23 07:47 Temperature Source Axillary 01/25/23 07:47 Pulse Rate 90 01/25/23 09:11 Respiratory Rate 16 01/25/23 09:11 Blood Pressure 109/87 01/25/23 09:11 O2 Sat by Pulse Oximetry 97 01/25/23 09:11 Height 5 ft 4 in 01/25/23 07:47 Weight 191 lb 12.835 oz 01/25/23 07:47 Telemetry Heart Rate 73 01/05/23 07:00 Appearance: Positive Ill-Appearing Skin: Positive [place] and Warm HEENT: Positive Normocephalic, Atraumatic and PERRLA (R pupil nonreactive to light) Neck: Positive Supple and Midline Trachea Chest/Lungs: Positive Symmetrical With Equal Breath Sounds, Clear to Auscultation Bilaterally and Other (gurgling noted with respirations) Heart: Positive RRR and Pulses Normal GI/: Positive Soft, Nontender and Bowel Sounds Normal Musculoskeletal: Positive Not Examined Extremities: Positive Intact Peripheral Pulses and Stable Joints Without Laxity Neurological: Positive Other (unresponsive to verbal stimuli, opened eyes minimally to painful stimuli, GCS 3) Psychiatric: Positive Not Examined Labs This Visit Labs This Visit: Labs This Visit 01/25/23 07:41 WBC 8.10 RBC 3.66 L Hgb 10.4 L Hct 33.2 L MCV 90.7 MCH 28.4 MCHC 31.3 L RDW Coeff of Tavares 19.8 H Plt Count 251 Immature Gran % (Auto) 0.1 Neut % (Auto) 90.0 H Lymph % (Auto) 7.0 L [place] % (Auto) 2.6 Eos % (Auto) 0.1 Baso % (Auto) 0.2 Neut # (Auto) 7.3 H Lymph # (Auto) 0.6 [place] # (Auto) 0.2 L Eos # (Auto) 0.0 Baso # (Auto) 0.0 Immature Gran # (Auto) 0.0 PT 11.0 INR 1.06 APTT 28.0 Sodium 137.6 Potassium 3.94 Chloride 102.8 Carbon Dioxide 31.6 H Anion Gap 7.14 BUN 33.8 H Creatinine 0.95 Estimated GFR (MDRD) 56.00 BUN/Creatinine Ratio 35.57 Glucose 214.0 H Hemoglobin A1c 7.59 H Lactic Acid 1.82 Calcium 8.94 Magnesium 1.81 Total Bilirubin 0.33 AST 49.9 H ALT 34.7 Alkaline Phosphatase 64.8 Troponin I 0.014 Total Protein 6.30 Albumin 3.21 L Globulin 3.09 Albumin/Globulin Ratio 1.03 Imaging Imaging: EXAM: CT HEAD WITHOUT CONTRAST FINDINGS: Please note, some of the images are degraded by motion, despite repeat scan. No acute intracranial hemorrhage. No hydrocephalus. No midline shift. Parenchymal volume loss. Chronic microangiopathy. The calvarium is intact. IMPRESSION: Limited as above. As seen, no acute intracranial abnormality. EXAM: CHEST RADIOGRAPH (1 VIEW) FINDINGS: Lines, Tubes, Devices: None Lungs and Pleura: Blunting of the left costophrenic sulcus, similar to the previous study. Coarse, prominent interstitial markings. Hazy densities in both lungs. The lung apices are partially obscured. Cardiac silhouette: Stable. Bones: No acute abnormality. IMPRESSION: Blunting of the left costophrenic sulcus, similar to the previous study. There may be a small left pleural effusion. Coarse, prominent interstitial markings and scattered hazy densities in both lungs. Correlate for pneumonitis and / or interstitial edema. Please see above description and limitations. Review Statement Review Statement: I have independently reviewed and interpreted the labs/EKGs/imaging that were ordered by the ER provider. I have reviewed all outside records that are available currently in our EMR including imaging/notes/labs from previous visits. Plan Plan: 1. Acute Metabolic Encephalopathy in setting of UTI and hypoglycemia - treating UTI with rocephin, D5NS@100mL/hr, avoid neurologically altering agents, telemetry 2. CVA/TIA - CT head negative, family does not wish to pursue stroke work-up, patient high risk for stroke due to hx of Afib, adding scopolomine patch due to inability to clear airway 3. UTI - rocephin, urine culture pending 4. Hypoglycemia - improving, Q2H accuchecks, D5NS@100mL/hr, D50 ordered prn 5. Atrial Fibrillation - chronic, rate controlled, holding oral medications due to inability to swallow Holding all home medications due to inability to swallow DVT Prophylaxis: Chronic anticoagulation Time Spent: Greater than 80 minutes spent with patient, 50% of the time spent with this patient was devoted to counseling and coordination of care. [facility] minutes spent discussing advance care planning. Disposition: DNR Admit to: Med/Surg Inpatient Discussed Plan of Care with Dr. Alf Phan. Discussed course of treatment extensively with POA/Granddaughter, Celina. She denied pursing stroke work-up, would like to continue IV antibiotics to treat UTI and IV fluids for hypoglycemia and see how patient responds. Will re- evaluate with family if patient continues to decline or does not improve with treatment. Medications Medication Orders: Medications Ordered Category Date Time Status Acetaminophen [Tylenol] Meds 01/25/23 11:28 Ordered 650 mg PO Q4H PRN Ceftriaxone/D5w 1 gm Premix [Rocephin 1 gm/50 ml D5w] Meds 01/26/23 09:00 Ordered 1 gm in 50 ml IV DAILY Dextrose 50 % in Water [Dextrose 50%-Water Abboject] Meds 01/25/23 11:28 Ordered 50 ml IVP ONCE PRN
[2023-01-25 12:24] VITALS: BMI 33.6
[2023-01-25] MEDS: DEXTROSE 5%-NS IV SOLUTION 1,000 ML IV SCH ×2 (12:34→21:53)
[2023-01-25] MEDS: TRANSDERM-SCOP 1.5 MG PATCH TD SCH (13:03)
[2023-01-25] MEDS ORDERED: TORADOL IVP PRN (14:08)
[2023-01-25] MEDS ORDERED: TYLENOL RC PRN (18:23)
[2023-01-26 05:25] LABS: BASOPHILS # (AUTO) 0.1 K/uL (0-0.2); BASOPHILS % (AUTO) 0.4 % (0.0-3.0); EOSINOPHILS # (AUTO) 0.2 K/ul (0.0-0.7); EOSINOPHILS % (AUTO) 1.6 % (0.0-7.0); HEMATOCRIT 29.7 % (37.0-47.0); HEMOGLOBIN 9.7 g/dl (12.0-16.0); IMMATURE GRANULOCYTE % (AUTO) 0.2 % (0.0-5.0); LYMPHOCYTES # (AUTO) 0.8 K/uL (0.60-3.4); LYMPHOCYTES % (AUTO) 6.7 (10.0-50.0); MEAN CORPUSCULAR HEMOGLOBIN 29.4 pg (27.0-31.0); MEAN CORPUSCULAR HGB CONC 32.7 (31.8-35.4); MONOCYTES # (AUTO) 0.6 K/uL (0.4-2.0); MONOCYTES % (AUTO) 5.1 (0-10); NEUTROPHILS # (AUTO) 10.2 K/ul (2.0-6.9); PLATELET COUNT 257 10^3/uL (140-440); RDW COEFFICIENT OF VARIATION 20.2 % (11.6-14.8); WHITE BLOOD COUNT 11.87 K/ul (4.6-10.2)
[2023-01-26 05:42] LABS: ALANINE AMINOTRANSFERASE 31.4 U/L (0-35); ALBUMIN 2.91 g/dL (3.5-5.0); ALKALINE PHOSPHATASE 56.8 U/L (53-141); ASPARTATE AMINO TRANSFERASE 51.7 U/L (14-36); BILIRUBIN,TOTAL 0.43 mg/dL (0.2-1.3); BLOOD UREA NITROGEN 33.5 mg/dL (7-17); CALCIUM 8.44 mg/dL (8.4-10.2); CARBON DIOXIDE 28.5 mmol/L (22-30.0); CHLORIDE 110.2 mmol/L (98-107); CREATININE 1.02 mg/dL (0.60-1.30); GLUCOSE 212.1 mg/dL (74-106); POTASSIUM 3.79 mmol/L (3.5-5.1); SODIUM 139.9 mmol/L (134.5-145); TOTAL PROTEIN 5.96 g/dL (6.3-8.2)
[2023-01-26] MEDS: ROCEPHIN 1 GM/50 ML D5W 1 GM/50 ML BAG IV SCH (09:32)
[2023-01-26] MEDS: DEXTROSE 5%-NS IV SOLUTION 1,000 ML IV SCH ×2 (09:32→20:19)
[2023-01-26] MEDS: VANCOMYCIN 1 GRAM/200 ML PREMIX 1 GM/200 ML BAG IV SCH (10:58)
--- NOTE | 2023-01-26 11:25 | PCM.PROG ---
Date/Time Seen Date Seen by Provider: 01/26/23 Time Seen by Provider: 08:30 Provider Provider: MERLE WYNN, [facility] Chief Complaint Chief Complaint: UTI ALTERED, HYPOGLYCEMIA Subjective Subjective: No events overnight. Patient still unresponsive. Objective Appearance: Positive Ill-Appearing Chest/Lungs: Positive Symmetrical With Equal Breath Sounds, Clear to Auscultation Bilaterally and Good Air Movement all 4 Lung Huang Heart: Positive RRR and Pulses Normal GI/: Positive Soft, Nontender, Bowel Sounds Normal, No Distention and No Organomegaly Musculoskeletal: Positive Not Examined Neurological: Positive Other (lethargic, GCS 3) Vital Signs Vital Signs: Vital Signs: Last 24 Hours 01/25/23 11:48 01/25/23 12:10 01/25/23 12:10 Temperature 97.5 F L Temperature Source Temporal Artery Scan Pulse Rate 94 94 Respiratory Rate 15 24 H Blood Pressure 109/69 Blood Pressure Mean Blood Pressure Left Arm 88/62 Blood Pressure Location Blood Pressure Position Supine O2 Sat by Pulse Oximetry 97 95 Oxygen Delivery Method Room Air Room Air Height 5 ft 2 in Weight 184 lb Telemetry Type Telemetry Monitoring Telemetry Heart Rate EKG W[place] Interval EKG QRS Interval Telemetry Strip Reading 01/25/23 14:00 01/25/23 13:00 01/25/23 18:00 Temperature 97.7 F 96.9 F L Temperature Source Temporal Artery Scan Temporal Artery Scan Pulse Rate 85 99 Respiratory Rate 18 18 Blood Pressure 95/65 97/64 Blood Pressure Mean 75 75 Blood Pressure Left Arm Blood Pressure Location Left Radial Artery Left Arm Blood Pressure Position O2 Sat by Pulse Oximetry 95 97 Oxygen Delivery Method Room Air Room Air Height Weight Telemetry Type Remote Telemetry Telemetry Monitoring Continues Telemetry Heart Rate 91 EKG [place] Interval EKG QRS Interval 0.03 L Telemetry Strip Reading Afib 01/25/23 19:00 01/25/23 20:00 01/25/23 21:56 Temperature 96.4 F L Temperature Source Temporal Artery Scan Pulse Rate 99 Respiratory Rate 16 Blood Pressure 81/53 L Blood Pressure Mean 62 Blood Pressure Left Arm Blood Pressure Location Right Arm Blood Pressure Position Sitting O2 Sat by Pulse Oximetry 95 Oxygen Delivery Method Room Air Room Air Height Weight Telemetry Type Remote Telemetry Telemetry Monitoring Continues Telemetry Heart Rate 93 EKG [place] Interval EKG QRS Interval 0.08 Telemetry Strip Reading Afib 01/26/23 01:00 01/26/23 01:37 01/26/23 05:30 Temperature 96.6 F L 96.4 F L Temperature Source Temporal Artery Scan Temporal Artery Scan Pulse Rate 97 99 Respiratory Rate 16 16 Blood Pressure 102/65 92/66 Blood Pressure Mean 77 74 Blood Pressure Left Arm Blood Pressure Location Left Arm Left Radial Artery Blood Pressure Position Supine Supine O2 Sat by Pulse Oximetry 92 L 95 Oxygen Delivery Method Room Air Room Air Height Weight Telemetry Type Remote Telemetry Telemetry Monitoring Continues Telemetry Heart Rate 97 EKG W[place] Interval 0.20 EKG QRS Interval 0.08 Telemetry Strip Reading NSR 01/26/23 10:00 01/26/23 07:00 01/26/23 08:00 Temperature 97.1 F L Temperature Source Temporal Artery Scan Pulse Rate 87 Respiratory Rate 14 Blood Pressure 138/77 Blood Pressure Mean 97 Blood Pressure Left Arm Blood Pressure Location Right Radial Artery Blood Pressure Position Supine O2 Sat by Pulse Oximetry 96 Oxygen Delivery Method Room Air Room Air Height Weight Telemetry Type Remote Telemetry Telemetry Monitoring Continues Telemetry Heart Rate 88 EKG W[place] Interval 0.22 H EKG QRS Interval 0.05 L Telemetry Strip Reading sr 1st degree avb Lab Results Lab Results: Lab Results: Last 24 Hours 01/26/23 04:45 WBC 11.87 H RBC 3.30 L Hgb 9.7 L Hct 29.7 L MCV 90.0 MCH 29.4 MCHC 32.7 RDW Coeff of [place]ava[place] 20.2 H Plt Count 257 Immature Gran % (Auto) 0.2 Neut % (Auto) 86.0 H Lymph % (Auto) 6.7 L [place] % (Auto) 5.1 Eos % (Auto) 1.6 Baso % (Auto) 0.4 Neut # (Auto) 10.2 H Lymph # (Auto) 0.8 [place] # (Auto) 0.6 Eos # (Auto) 0.2 Baso # (Auto) 0.1 Immature Gran # (Auto) 0.0 Sodium 139.9 Potassium 3.79 Chloride 110.2 H Carbon Dioxide 28.5 Anion Gap 4.99 BUN 33.5 H Creatinine 1.02 Estimated GFR (MDRD) 51.00 BUN/Creatinine Ratio 32.84 Glucose 212.1 H Calcium 8.44 Total Bilirubin 0.43 AST 51.7 H ALT 31.4 Alkaline Phosphatase 56.8 Total Protein 5.96 L Albumin 2.91 L Globulin 3.05 Albumin/Globulin Ratio 0.95 Procalcitonin 54.95 H Additional Comments Additional Comments: I have independently reviewed and interpreted the labs/EKGs/imaging ordered during this hospital stay. I have reviewed outside records that are available in our EMR that pertain to medical stay including imaging/notes/labs from previous visits. Active Medications Active Medications: Medications Generic Name Dose Route Start Last Admin Trade Name Freq PRN Reason Stop Dose Admin Acetaminophen 650 mg 01/25/23 11:28 Acetaminophen 325 Mg Tablet PO Q4H PRN Mild Pain Acetaminophen 325 mg 01/25/23 18:23 Acetaminophen 325 Mg Supp.Rect RC Q8H PRN Restlessness Dextrose 50 ml 01/25/23 11:28 Dextrose 50 % In Water 50 Ml Disp.Syrin IVP ONCE PRN Unconscious Hypoglycemia Protocol CEFTRIAXONE/D5W 1 GM PREMIX 1 gm in 50 mls @ 75 mls/hr 01/26/23 09:00 0 01/26/23 09:32 Rocephin 1 Gm/50 Ml D5w IV 01/29/23 08:59 75 mls/hr DAILY ADOLFO Administration Dextrose/Sodium Chloride 1,000 mls @ 100 mls/hr 01/25/23 12:00 01/26/23 09:32 Dextrose 5%-Ns Iv Solution IV 100 mls/hr .Q10H ADOLFO Administration VANCOMYCIN/WATER FOR INJ (PEG) 1 gm in 200 mls @ 200 mls/hr 01/26/23 10:00 01/26/23 10:58 Vancomycin 1 Gram/200 Ml Premix IV 01/29/23 09:59 200 mls/hr DAILY ADOLFO Administration Ketorolac Tromethamine 15 mg 01/25/23 14:08 Ketorolac Tromethamine 15 Mg/Ml Vial IVP 01/29/23 14:09 Q6HR PRN Pain Scopolamine HBr 1 patch 01/25/23 12:30 01/25/23 13:03 Scopolamine Hydrobromide 1.5 Mg Patch.Td72 TD 1 patch Q72HR ADOLFO Administration Plan Plan: 1. Acute Metabolic Encephalopathy in setting of UTI and hypoglycemia - treating UTI with rocephin, D5NS@100mL/hr, avoid neurologically altering agents, telemetry 2. CVA/TIA - CT head negative, family does not wish to pursue stroke work-up, patient high risk for stroke due to hx of Afib, adding scopolomine patch due to inability to clear airway 3. UTI - rocephin, urine culture pending, added vancomycin due to previous urine culture and high procal 4. Hypoglycemia - resolved, Q6H accuchecks, D5NS@100mL/hr, D50 ordered prn 5. Atrial Fibrillation - chronic, rate controlled, holding oral medications due to inability to swallow Holding all home medications due to inability to swallow Family requesting at least 48 hours of antibiotics to see if patient condition improves. If improvement not seen, discussed need for comfort care/hospice. Granddaughter, Celina, POA reports she will be contacting the other POAs and family to discuss comfort care if condition does not improve. Review Statement Review Statement: I have personally discussed and reviewed the patient's visit/currently labs/imag ing/decision making with Dr. Phan, my supervising attending. Greater that 50 minutes spent with patient, 50% of the time spent with this patient was devoted to counseling and coordination of care.
[2023-01-26] MEDS: LOVENOX SUBCUT SCH (20:10)
[2023-01-27] MEDS: DEXTROSE 5%-NS IV SOLUTION 1,000 ML IV SCH ×2 (04:35→18:07)
[2023-01-27 04:59] LABS: BASOPHILS % (AUTO) 0.4 % (0.0-3.0); EOSINOPHILS # (AUTO) 0.7 K/ul (0.0-0.7); EOSINOPHILS % (AUTO) 6.6 % (0.0-7.0); HEMATOCRIT 32.7 % (37.0-47.0); HEMOGLOBIN 10.2 g/dl (12.0-16.0); IMMATURE GRANULOCYTE % (AUTO) 0.2 % (0.0-5.0); LYMPHOCYTES # (AUTO) 0.8 K/uL (0.60-3.4); LYMPHOCYTES % (AUTO) 7.1 (10.0-50.0); MEAN CORPUSCULAR HEMOGLOBIN 28.7 pg (27.0-31.0); MEAN CORPUSCULAR HGB CONC 31.2 (31.8-35.4); MEAN CORPUSCULAR VOLUME 91.9 fl (81.0-99.0); MONOCYTES # (AUTO) 0.8 K/uL (0.4-2.0); MONOCYTES % (AUTO) 7.3 (0-10); NEUTROPHILS # (AUTO) 8.6 K/ul (2.0-6.9); NEUTROPHILS % (AUTO) 78.4 % (42.2-75.2); PLATELET COUNT 247 10^3/uL (140-440); RDW COEFFICIENT OF VARIATION 20.6 % (11.6-14.8); RED BLOOD COUNT 3.56 10^6/ul (4.20-5.40); WHITE BLOOD COUNT 10.92 K/ul (4.6-10.2)
[2023-01-27 05:21] LABS: ALBUMIN 3.07 g/dL (3.5-5.0); ALKALINE PHOSPHATASE 68.5 U/L (53-141); BILIRUBIN,TOTAL 0.48 mg/dL (0.2-1.3); BLOOD UREA NITROGEN 24.6 mg/dL (7-17); CALCIUM 8.25 mg/dL (8.4-10.2); CARBON DIOXIDE 26.8 mmol/L (22-30.0); CHLORIDE 114.7 mmol/L (98-107); CREATININE 0.8 mg/dL (0.60-1.30); GLUCOSE 320.7 mg/dL (74-106); POTASSIUM 3.33 mmol/L (3.5-5.1); SODIUM 143.5 mmol/L (134.5-145); TOTAL PROTEIN 6.29 g/dL (6.3-8.2)
[2023-01-27] MEDS: VANCOMYCIN 1 GRAM/200 ML PREMIX 1 GM/200 ML BAG IV SCH (08:50)
[2023-01-27] MEDS: ROCEPHIN 1 GM/50 ML D5W 1 GM/50 ML BAG IV SCH (10:03)
[2023-01-27] MEDS: LOVENOX SUBCUT SCH (10:03)
--- NOTE | 2023-01-27 11:44 | PCM.PROG ---
Date/Time Seen Date Seen by Provider: 01/27/23 Time Seen by Provider: 08:00 Provider Provider: MERLE WYNN, [facility] Chief Complaint Chief Complaint: UTI ALTERED, HYPOGLYCEMIA Subjective Subjective: Not responsive to verbal or painful stimuli. Objective Appearance: Positive Ill-Appearing Chest/Lungs: Positive Symmetrical With Equal Breath Sounds, Clear to Auscultation Bilaterally and Good Air Movement all 4 Lung Huang Heart: Positive RRR and Pulses Normal GI/: Positive Soft, Nontender, Bowel Sounds Normal, No Distention and No Organomegaly Musculoskeletal: Positive Not Examined Neurological: Positive Other (lethargic, unresponsive) Vital Signs Vital Signs: Vital Signs: Last 24 Hours 01/26/23 14:00 01/26/23 18:00 01/26/23 13:00 Temperature 96.1 F L 96.4 F L Temperature Source Temporal Artery Scan Temporal Artery Scan Pulse Rate 87 95 Respiratory Rate 17 15 Blood Pressure 158/88 H 155/89 H Blood Pressure Mean 111 111 Blood Pressure Location Right Radial Artery Right Radial Artery Blood Pressure Position Supine Supine O2 Sat by Pulse Oximetry 95 98 Oxygen Delivery Method Room Air Room Air Weight Telemetry Type Remote Telemetry Telemetry Monitoring Continues Irregular Telemetry Rate (Approximate) Telemetry Heart Rate 83 Telemetry SPO2 96 EKG WI Interval 0.22 H EKG QRS Interval 0.09 Telemetry Strip Reading S. Arrhythmia with 1st Degree AVB 01/26/23 19:00 01/26/23 20:00 01/26/23 21:46 Temperature 96.9 F L Temperature Source Temporal Artery Scan Pulse Rate 91 Respiratory Rate 18 Blood Pressure 130/80 Blood Pressure Mean 96 Blood Pressure Location Left Arm Blood Pressure Position Supine O2 Sat by Pulse Oximetry 99 Oxygen Delivery Method Room Air Room Air Weight Telemetry Type Remote Telemetry Telemetry Monitoring Continues Irregular Telemetry Rate (Approximate) 90-100 BPM Telemetry Heart Rate Telemetry SPO2 97 EKG WI Interval EKG QRS Interval 0.10 Telemetry Strip Reading AFIB 01/27/23 01:00 01/27/23 05:07 01/27/23 10:00 Temperature 96.6 F L 97.0 F L Temperature Source Temporal Artery Scan Temporal Artery Scan Pulse Rate 67 96 Respiratory Rate 16 15 Blood Pressure 142/72 H 145/83 H Blood Pressure Mean 95 103 Blood Pressure Location Left Arm Left Arm Blood Pressure Position Supine Supine O2 Sat by Pulse Oximetry 96 98 Oxygen Delivery Method Room Air Room Air Weight Telemetry Type Remote Telemetry Telemetry Monitoring Continues Irregular Telemetry Rate (Approximate) 80-90 BPM Telemetry Heart Rate Telemetry SPO2 96 EKG WI Interval EKG QRS Interval 0.10 Telemetry Strip Reading AFIB 01/27/23 08:00 01/27/23 07:00 01/27/23 05:25 Temperature Temperature Source Pulse Rate Respiratory Rate Blood Pressure Blood Pressure Mean Blood Pressure Location Blood Pressure Position O2 Sat by Pulse Oximetry Oxygen Delivery Method Room Air Weight 191 lb 12.835 oz Telemetry Type Remote Telemetry Telemetry Monitoring Continues Irregular Telemetry Rate (Approximate) 80-90 BPM Telemetry Heart Rate Telemetry SPO2 EKG WI Interval EKG QRS Interval 0.10 Telemetry Strip Reading A-FIB Lab Results Lab Results: Lab Results: Last 24 Hours 01/27/23 04:45 WBC 10.92 H RBC 3.56 L Hgb 10.2 L Hct 32.7 L MCV 91.9 MCH 28.7 MCHC 31.2 L RDW Coeff of Tavares 20.6 H Plt Count 247 Immature Gran % (Auto) 0.2 Neut % (Auto) 78.4 H Lymph % (Auto) 7.1 L Jackson % (Auto) 7.3 Eos % (Auto) 6.6 Baso % (Auto) 0.4 Neut # (Auto) 8.6 H Lymph # (Auto) 0.8 Jackson # (Auto) 0.8 Eos # (Auto) 0.7 Baso # (Auto) 0.0 Immature Gran # (Auto) 0.0 Sodium 143.5 Potassium 3.33 L Chloride 114.7 H Carbon Dioxide 26.8 Anion Gap 5.33 BUN 24.6 H Creatinine 0.80 Estimated GFR (MDRD) 68.00 BUN/Creatinine Ratio 30.75 Glucose 320.7 H D Calcium 8.25 L Total Bilirubin 0.48 AST 55.0 H ALT 32.0 Alkaline Phosphatase 68.5 Total Protein 6.29 L Albumin 3.07 L Globulin 3.22 Albumin/Globulin Ratio 0.95 Additional Comments Additional Comments: I have independently reviewed and interpreted the labs/EKGs/imaging ordered during this hospital stay. I have reviewed outside records that are available in our EMR that pertain to medical stay including imaging/notes/labs from previous visits. Active Medications Active Medications: Medications Generic Name Dose Route Start Last Admin Trade Name Freq PRN Reason Stop Dose Admin Acetaminophen 650 mg 01/25/23 11:28 Acetaminophen 325 Mg Tablet PO Q4H PRN Mild Pain Acetaminophen 325 mg 01/25/23 18:23 Acetaminophen 325 Mg Supp.Rect RC Q8H PRN Restlessness Dextrose 50 ml 01/25/23 11:28 Dextrose 50 % In Water 50 Ml Disp.Syrin IVP ONCE PRN Unconscious Hypoglycemia Protocol Enoxaparin Sodium 30 mg 01/26/23 20:00 01/27/23 10:03 Enoxaparin Sodium 30 Mg/0.3 Ml Syr SUBCUT 30 mg DAILY ADOLFO Administration CEFTRIAXONE/D5W 1 GM PREMIX 1 gm in 50 mls @ 75 mls/hr 01/26/23 09:00 01/27/23 10:03 Rocephin 1 Gm/50 Ml D5w IV 01/29/23 08:59 75 mls/hr DAILY ADOLFO Administration Dextrose/Sodium Chloride 1,000 mls @ 100 mls/hr 01/25/23 12:00 01/27/23 04:35 Dextrose 5%-Ns Iv Solution IV 100 mls/hr .Q10H ADOLFO Administration VANCOMYCIN/WATER FOR INJ (PEG) 1 gm in 200 mls @ 200 mls/hr 01/26/23 10:00 01/27/23 08:50 Vancomycin 1 Gram/200 Ml Premix IV 01/29/23 09:59 200 mls/hr DAILY ADOLFO Administration Ketorolac Tromethamine 15 mg 01/25/23 14:08 Ketorolac Tromethamine 15 Mg/Ml Vial IVP 01/29/23 14:09 Q6HR PRN Pain Scopolamine HBr 1 patch 01/25/23 12:30 01/25/23 13:03 Scopolamine Hydrobromide 1.5 Mg Patch.Td72 TD 1 patch Q72HR ADOLFO Administration Plan Plan: 1. Acute Metabolic Encephalopathy in setting of UTI and hypoglycemia - treating UTI with rocephin, D5NS@100mL/hr, avoid neurologically altering agents, telemetry 2. CVA/TIA - CT head negative, family does not wish to pursue stroke work-up, patient high risk for stroke due to hx of Afib, adding scopolomine patch due to inability to clear airway 3. UTI - rocephin, urine culture preliminary negative, added vancomycin due to previous urine culture and high procal 4. Hypoglycemia - resolved, Q6H accuchecks, D5NS@100mL/hr, D50 ordered prn 5. Atrial Fibrillation - chronic, rate controlled, holding oral medications due to inability to swallow DVT: Sourav Spoke extensively with granddaughter, Celina this morning regarding no improvem ent in patient condition. Reports that her and patient's family would like patient to receive more doses of antibiotics before consulting hospice. Reports patient has required 3-4 days of IV antibiotics to notice improvement of mental status. Patient is not responsive to verbal or painful stimuli consistently. No fever or signs of infection present. Lisseth requested blood cultures even though antibiotics have been given to check for sepsis. Review Statement Review Statement: I have personally discussed and reviewed the patient's visit/currently labs/imaging/decision making with Dr. Phan, my supervising attending. Greater that 50 minutes spent with patient, 50% of the time spent with this patient was devoted to counseling and coordination of care.
[2023-01-28 05:15] LABS: BASOPHILS # (AUTO) 0.1 K/uL (0-0.2); BASOPHILS % (AUTO) 0.7 % (0.0-3.0); EOSINOPHILS # (AUTO) 0.3 K/ul (0.0-0.7); EOSINOPHILS % (AUTO) 3.2 % (0.0-7.0); HEMOGLOBIN 10.1 g/dl (12.0-16.0); IMMATURE GRANULOCYTE % (AUTO) 0.3 % (0.0-5.0); LYMPHOCYTES # (AUTO) 0.9 K/uL (0.60-3.4); MEAN CORPUSCULAR HEMOGLOBIN 28.5 pg (27.0-31.0); MEAN CORPUSCULAR HGB CONC 30.6 (31.8-35.4); MONOCYTES # (AUTO) 0.8 K/uL (0.4-2.0); MONOCYTES % (AUTO) 8.6 (0-10); NEUTROPHILS # (AUTO) 6.8 K/ul (2.0-6.9); NEUTROPHILS % (AUTO) 77.2 % (42.2-75.2); PLATELET COUNT 262 10^3/uL (140-440); RDW COEFFICIENT OF VARIATION 20.6 % (11.6-14.8); RED BLOOD COUNT 3.55 10^6/ul (4.20-5.40); WHITE BLOOD COUNT 8.77 K/ul (4.6-10.2)
[2023-01-28 05:24] LABS: ALANINE AMINOTRANSFERASE 29.2 U/L (0-35); ALBUMIN 2.94 g/dL (3.5-5.0); ALKALINE PHOSPHATASE 78.7 U/L (53-141); ASPARTATE AMINO TRANSFERASE 33.7 U/L (14-36); BILIRUBIN,TOTAL 0.52 mg/dL (0.2-1.3); BLOOD UREA NITROGEN 29.2 mg/dL (7-17); CALCIUM 8.44 mg/dL (8.4-10.2); CARBON DIOXIDE 22.3 mmol/L (22-30.0); CHLORIDE 118.2 mmol/L (98-107); CREATININE 0.96 mg/dL (0.60-1.30); GLUCOSE 347.4 mg/dL (74-106); POTASSIUM 3.29 mmol/L (3.5-5.1); SODIUM 147.4 mmol/L (134.5-145); TOTAL PROTEIN 6.12 g/dL (6.3-8.2)
[2023-01-28] MEDS: ROCEPHIN 1 GM/50 ML D5W 1 GM/50 ML BAG IV SCH (08:23)
[2023-01-28] MEDS: LOVENOX SUBCUT SCH (08:23)
[2023-01-28] MEDS: TRANSDERM-SCOP 1.5 MG PATCH TD SCH (08:24)
[2023-01-28] MEDS: VANCOMYCIN 1 GRAM/200 ML PREMIX 1 GM/200 ML BAG IV SCH (09:34)
[2023-01-28 09:56] VITALS: RESP 16; TEMP 96.3
[2023-01-28] MEDS ORDERED: HUMULIN R SUBCUT STA (12:22)
--- NOTE | 2023-01-28 12:47 | DCSUM ---
Admission Date Admission Date: 01/25/23 Discharge Date Discharge Date: 01/28/23 Admission Diagnosis Admission Diagnosis: Acute Encephalopathy, CVA/TIA Discharge Diagnosis Discharge Diagnosis: CVA, Comfort Measures Hospital Provider Hospital Provider: MERLE WYNN, [facility] Primary Care Physician Primary Care Physician: BRYSON PHAN MD Summary of History and Physical Summary of History and Physical: 87 yo female presented to the ER by EMS from local nursing facility. detention called EMS due to inability to arouse patient and was "foaming at the mouth". EMS found patient's blood sugar to be in the 40s. She was given glucagon and blood glucose improved to 70s. In ER she was given an amp of D50 and blood sugar increased to 200s. Patient's mental status did not change. Urinalysis was obtained that showed UTI. CT of head was negative. Granddaughter, Celina HUGHES, spoke with ER doctor extensively and did not want patient transferred if possible. She reports she visited with patient and other family yesterday and was at her baseline. Over the last few months, granddaughter states patient has had episodes of dysphasia. Reports since June she has been on antibiotics intermittently for UTI and takes macrobid for prophylaxis. When UTI occurs, mental status declines routinely. Due to mental status, patient unable to provide HPI. 1. Acute Metabolic Encephalopathy in setting of UTI and hypoglycemia - treating UTI with rocephin, D5NS@100mL/hr, avoid neurologically altering agents, telemetry 2. CVA/TIA - CT head negative, family does not wish to pursue stroke work-up, patient high risk for stroke due to hx of Afib, adding scopolomine patch due to inability to clear airway 3. UTI - rocephin, urine culture pending 4. Hypoglycemia - improving, Q2H accuchecks, D5NS@100mL/hr, D50 ordered prn 5. Atrial Fibrillation - chronic, rate controlled, holding oral medications due to inability to swallow Holding all home medications due to inability to swallow Hospital Course Subjective: After resolution of hypoglycemia, patient mental status did not change. She was unable to clear her airway secretions and scopolomine patch was ordered. She was started on rocephin in the ER due to blood in the urine and hx of UTI. Van comycin was added the following day due to patient's previous urine culture on 01/06. Over course of stay, patient mental status has not improved. She is not responding to painful stimuli. Minimal eye opening to verbal stimuli. She is not making any voluntary movements. Urine output has declined over the last 2 days as well. Blood cultures were collected after antibiotics were started, but are showing no growth. Urine cultures showed no growth. WBC has remained 12 or below, at 8 today. All other labs have remained stable. She does not exhibit any signs of infection at this time and is also hemodynamically stable. However, due to lack to neurological activity, this provider discussed extensively with family that there was no further need for antibiotic therapy and recommended hospice. Granddaughter, Celina, healthcare POA requesting speaking with Dr. Victor Hugo Phan as well her concerns that the patient has a source of infection. Dr. Victor Hugo Phan and this provider saw the patient together, discussed the case with the POA, and came to the general concensus concern that the patient has had a stroke and further care hospital care is not warranted. Granddaughter was given options for hospice companies and plans to use [facility] and discharge the patient back to [facility] nursing [facility]. Appearance: Ill-appearing HEENT: MMM and Supple CVS: No Gallop and No JVD Abdomen: Soft and Non-Tender Respiratory: Other (diminished respiratory effort) Extremities: Other (+2 edema) Vital Signs: Most Recent Vital Signs Temperature 96.3 F L 01/28/23 09:55 Temperature Source Temporal Artery Scan 01/28/23 09:55 Temperature Source Axillary 01/25/23 07:47 Pulse Rate 90 01/28/23 09:55 Respiratory Rate 16 01/28/23 09:55 Blood Pressure 112/71 01/28/23 09:55 Blood Pressure Mean 84 01/28/23 09:55 Blood Pressure Left Arm 88/62 01/25/23 12:10 Blood Pressure Location Left Arm 01/28/23 09:55 Blood Pressure Position Supine 01/28/23 09:55 O2 Sat by Pulse Oximetry 97 01/28/23 09:55 Oxygen Delivery Method Room Air 01/28/23 09:55 Height 5 ft 2 in 01/25/23 12:10 Weight 191 lb 12.835 oz 01/27/23 05:25 Telemetry Type Remote Telemetry 01/28/23 07:00 Telemetry Monitoring Continues 01/28/23 07:00 Irregular Telemetry Rate (Approximate) 90-100 BPM 01/28/23 00:52 Telemetry Heart Rate 105 H 01/28/23 07:00 Telemetry SPO2 96 01/27/23 01:00 EKG NC Interval 0.22 H 01/26/23 13:00 EKG QRS Interval 0.02 L 01/28/23 07:00 Telemetry Strip Reading Afib 01/28/23 07:00 Lab Results Last 24 Hours: 01/28/23 04:45 WBC 8.77 RBC 3.55 L Hgb 10.1 L Hct 33.0 L MCV 93.0 MCH 28.5 MCHC 30.6 L RDW Coeff of Tavares 20.6 H Plt Count 262 Immature Gran % (Auto) 0.3 Neut % (Auto) 77.2 H Lymph % (Auto) 10.0 Stephenson % (Auto) 8.6 Eos % (Auto) 3.2 Baso % (Auto) 0.7 Neut # (Auto) 6.8 Lymph # (Auto) 0.9 Stephenson # (Auto) 0.8 Eos # (Auto) 0.3 Baso # (Auto) 0.1 Immature Gran # (Auto) 0.0 Sodium 147.4 H Potassium 3.29 L Chloride 118.2 H Carbon Dioxide 22.3 Anion Gap 10.19 BUN 29.2 H Creatinine 0.96 Estimated GFR (MDRD) 55.00 BUN/Creatinine Ratio 30.41 Glucose 347.4 H Calcium 8.44 Total Bilirubin 0.52 AST 33.7 ALT 29.2 Alkaline Phosphatase 78.7 Total Protein 6.12 L Albumin 2.94 L Globulin 3.18 Albumin/Globulin Ratio 0.92 Discharge Instructions Discharge Planning: Discharge Planning > 40 minutes If patient is discharged with left ventricular systolic dysfunction: no Scopolomine patch Q72H Tylenol suppository PRN for pain Morphine and ativan prescriptions given - ask family prior to administering these medications per their request NPO due to inability to swallow Discharge Medications: Medications at Discharge (Home Meds & RX) cholecalciferol (vitamin D3) 25 mcg (1,000 unit) capsule (Vitamin D3) 1,000 unit PO DAILY 03/28/15 omega-3 fatty acids-fish oil 340 mg-1,000 mg capsule (Fish Oil) 2 ea PO BEDTIME 03/28/15 insulin syringe-needle U-100 0.5 mL 31 gauge x 5/16" (BD Insulin Syringe Ultra- Fine) See Rx Instructions .Route .COMPLEX ##100 05/05/20 fluticasone propionate 50 mcg/actuation nasal spray,suspension 1 spray intranasal QDAY #48 grams 06/04/21 loratadine 10 mg tablet (Allergy Relief (loratadine)) 10 mg PO QDAY 11/23/21 lidocaine 5 % topical patch 1 patch topical QDAY #1 ea 01/14/22 diclofenac sodium 1 % topical gel 100 g topical BID ##1 04/14/22 magnesium oxide 400 mg (241.3 mg magnesium) tablet See Rx Instructions .Route .COMPLEX #60 tabs 08/24/22 apixaban 5 mg tablet (Eliquis) See Rx Instructions .Route .COMPLEX #60 tabs 08/25/22 diltiazem HCl 60 mg tablet See Rx Instructions .Route .COMPLEX #60 tabs 09/22/22 nystatin 100,000 unit/gram topical cream 1 applic topical QID PRN rash #30 grams 10/11/22 pantoprazole 40 mg tablet,delayed release 40 mg PO QDAY #30 tabs 11/16/22 polyethylene glycol 3350 17 gram/dose oral powder (Miralax) 17 g PO QDAY PRN constipation #850 grams 11/16/22 potassium chloride 10 mEq tablet,extended release (Klor-Con) 10 meq PO QDAY PRN if taking lasix #30 tabs 12/06/22 albuterol sulfate 2.5 mg/3 mL (0.083 %) solution for nebulization 2.5 mg inhalation Q6HR 01/01/23 ferrous sulfate 325 mg (65 mg iron) tablet,delayed release 325 mg PO BID 01/01/23 quetiapine 25 mg tablet 25 mg PO BEDTIME hallucinations and insomnia 01/01/23 insulin aspart U-100 100 unit/mL subcutaneous solution 1 sliding scale dose subcut DIRECTED PRN hyperglycemia #10 mL 01/06/23 insulin degludec 100 unit/mL subcutaneous solution (Tresiba U-100 Insulin) 15 unit (0.15 mL) subcut BEDTIME #10 mL 01/06/23 nitrofurantoin macrocrystal 50 mg capsule 50 mg PO DAILY #30 caps 01/06/23 Discharge Plan Discharge Discharge Orders: Discharge Patient (ONCE); Ordered 01/28/23 Ordered By: DENITA HAIDER Activity Restrictions/Additional Instructions: Scopolomine patch Q72H Tylenol suppository PRN for pain Morphine and ativan prescriptions given - ask family prior to administering these medications per their request NPO due to inability to swallow Instructions: Hospice Care (GEN), Stroke (GEN) Patient Disposition: TRANSFER SNF Prescriptions: New scopolamine base 1 mg over 3 days patch 3 day 1 patch transdermal Q3D Qty: 24 0RF acetaminophen 650 mg suppository 650 mg NC Q4H PRN (Reason: pain, mild) Qty: 50 0RF morphine 2 mg/mL solution 1 mg subcut Q4H PRN (Reason: moderate pain (scale score 5-6)) Qty: 25 0RF lorazepam [Ativan] 2 mg/mL solution 1 mg IM Q4H PRN (Reason: agitation) Qty: 10 0RF Rx Instructions: administer 5-20 minutes before start of surgery/procedure as a single dose Continued lidocaine 5 % adhesive patch,medicated 1 patch topical QDAY Qty: 1 2RF Rx Instructions: leave on most painful area for up to 12 hrs Discontinued insulin syringe-needle U-100 [BD Insulin Syringe Ultra-Fine] 0.5 mL 31 gauge x 5/16" syringe See Rx Instructions .ROUTE .COMPLEX Qty: 100 6RF Hold Instructions: needles Dose Instruction: USE DIRECTED THREE TIMES DAILY WITH NOVOLOG Rx Instructions: USE DIRECTED THREE TIMES DAILY WITH NOVOLOG; diclofenac sodium 1 % gel 100 g topical BID Qty: 1 6RF Rx Instructions: Apply 4 grams to affected joint twice daily. magnesium oxide 400 mg (241.3 mg magnesium) tablet See Rx Instructions .ROUTE .COMPLEX Qty: 60 3RF Dose Instruction: TAKE ONE TABLET TWICE DAILY Rx Instructions: TAKE ONE TABLET TWICE DAILY Eliquis 5 mg tablet See Rx Instructions .ROUTE .COMPLEX Qty: 60 4RF Dose Instruction: TAKE ONE TABLET TWICE DAILY Rx Instructions: TAKE ONE TABLET TWICE DAILY diltiazem HCl 60 mg tablet See Rx Instructions .ROUTE .COMPLEX Qty: 60 4RF Dose Instruction: TAKE ONE TABLET TWICE DAILY Rx Instructions: TAKE ONE TABLET TWICE DAILY nystatin 100,000 unit/gram cream 1 applic topical QID PRN (Reason: rash ) Qty: 30 0RF potassium chloride [Klor-Con 10] 10 mEq tablet extended release 10 meq PO QDAY PRN (Reason: if taking lasix) Qty: 30 0RF Rx Instructions: Only take on the days she takes lasix cholecalciferol (vitamin D3) [Vitamin D3] 1,000 UNIT capsule 1,000 unit PO DAILY Fish Oil 1 EACH capsule 2 ea PO BEDTIME albuterol sulfate 2.5 mg /3 mL (0.083 %) solution for nebulization 2.5 mg inhalation Q6HR ferrous sulfate 325 mg (65 mg iron) tablet,delayed release (DR/EC) 325 mg PO BID quetiapine 25 mg tablet 25 mg PO BEDTIME nitrofurantoin macrocrystal 50 mg Capsule 50 mg PO DAILY Qty: 30 0RF insulin degludec [Tresiba U-100 Insulin] 100 unit/mL solution 15 unit subcut BEDTIME Qty: 10 0RF insulin aspart U-100 100 unit/mL solution 1 sliding scale dose subcut DIRECTED PRN (Reason: hyperglycemia) Qty: 10 0RF Rx Instructions: ADMINISTER 5 UNITS FOR GLUCOSE > 300; 10 UNITS FOR GLUCOSE > 500 loratadine [Allergy Relief (loratadine)] 10 mg tablet 10 mg PO QDAY pantoprazole 40 mg tablet,delayed release (DR/EC) 40 mg PO QDAY Qty: 30 3RF polyethylene glycol 3350 [Miralax] 17 gram/dose powder 17 g PO QDAY PRN (Reason: constipation) Qty: 850 2RF fluticasone propionate 50 mcg/actuation spray,suspension 1 spray intranasal QDAY Qty: 48 2RF Did you review [place] TECHNICAL MAINTENANCE TECHNICIAN for ALL controlled substances?: No Discussed opioids are addictive and Narcan is available by prescription or from pharmacy.: No Condition: Poor
[2023-01-28 14:26] VITALS: BP 93/61
== END 2023-01-28 15:50 | DRG 70 ==
LOC: ED 07:24 → MEDSURG B 11:19
PROVIDERS: ADMIT Hospitalist; ATTEND Nurse Practitioner Family
DX: R13.10 Dysphagia, unspecified; E07.9 Disorder of thyroid, unspecified; G93.41 Metabolic encephalopathy; R32 Unspecified urinary incontinence; I63.9 Cerebral infarction, unspecified; Z51.5 Encounter for palliative care; N39.0 Urinary tract infection, site not specified; E11.65 Type 2 diabetes mellitus with hyperglycemia; I48.91 Unspecified atrial fibrillation; E78.5 Hyperlipidemia, unspecified; I10 Essential (primary) hypertension; Z79.899 Other long term (current) drug therapy